=== PATIENT | male | born 1965 | race Caucasian/White ===

== ENCOUNTER 2017-04-22 15:59 | Inpatient (IN) ==
[2017-04-22] MEDS ORDERED: ASPIRIN 325 MG TABLET PO STA (16:33)
[2017-04-22] MEDS ORDERED: ASPIRIN 325 MG TABLET ONE (16:55)
[2017-04-22 17:10] LABS: Basophils % 0.5 % (0.0-0.8); Eosinophils # 0.1 10*3/uL (0.0-0.87); Eosinophils % 1.8 % (0.00-10.9); Hematocrit 41.6 VOL% (42.0-52.0); Hemoglobin 15.6 GM/DL (14.0-18.0); Immature Granulocytes % 0.4 %; Immature Granulocytes Absolute 0.03 #; Lymphocytes # 1.8 10*3/uL (1.4-4.0); Lymphocytes % 23.5 % (21.2-54.2); Mean Corpuscular HGB Conc 37.5 GM/DL (32-36); Mean Corpuscular Hemoglobin 31 PG (27-34); Mean Corpuscular Volume 82.1 FL (87-102); Mean Platelet Volume 10.2 FL (9.6-12.0); Monocytes # 0.6 10*3/uL (0.11-0.8); Neutrophils % 65.8 % (38.7-73.9); Platelet Count 211 T/CUMM (130-400); Red Blood Count 5.07 MC/CUMM (3.8-5.5); Red Cell Distribution Width 12.4 % (9.3-17.3); White Blood Count 7.6 T/CUMM (4-12)
[2017-04-22 17:27] LABS: Calcium 9.1 MG/DL (8.5-10.1); Magnesium 1.5 MG/DL (1.8-2.4); Potassium 4.1 MMOL/L (3.5-5.1)
--- NOTE | 2017-04-22 17:36 | XRay Report ---
Exam: XR chest 1V portable Indication: Midline chest pain Comparison study: None Findings: The heart, mediastinum, and bony structures are within normal limits. There is no focal consolidation, pneumothorax or pleural effusion identified. Impression: No acute cardiopulmonary process. PROCEDURE INTERPRETED AT [facility] DEPARTMENT OF RADIOLOGY Final Report Signed by: Arsenio Sanders
[2017-04-22] MEDS ORDERED: GLUCAGON 1 MG VIAL IM PRN (17:47)
[2017-04-22] MEDS ORDERED: ONDANSETRON 4 MG/2 ML VIAL IV PRN (17:47)
[2017-04-22] MEDS ORDERED: DEXTROSE 50% 25 GM/50 ML SYRINGE IV PRN (17:47)
[2017-04-22] MEDS ORDERED: MAGNESIUM SULF RIDER 4 GM in PREMIX 1 EACH IV PRN (17:47)
[2017-04-22] MEDS ORDERED: ENOXAPARIN 100 MG/ML SYRINGE SUBCUT STA (17:53)
--- NOTE | 2017-04-22 17:53 | Emergency Department Note ---
IEliazar Brooke, am scribing for, and in the presence of, Tk Chandra MD 16:34. IPrateek Kevin Lee, MD, personally performed the services described in this documentation, ascribed by Shobha Perea in my presence, and it is both accurate and complete [id number] . Arrival - Arrival Chief Complaint: Chest Pain Stated Complaint: chest pains ED Nursing Triage Note: states pain in chest felt like a mule kicking him in the chest onset thursday s/o eating a large meal and thursday after eating. pain goes into upper stomach and pt still has gall bladder. Mode of Arrival: Ambulatory Limitations: No Limitations Source: Patient, RN Notes Reviewed Time Seen by Provider: 04/22/17 16:26 - History of Present Illness HPI Narrative: Patient is a 51 year old male who presents to the ED with c/o chest pain that started on Thursday after eating a "large" meal. Patient states "I heard a doctor say that a heart attacks feels like a mule kicking you in the chest." He states that is what his pain feels like. He says the pain is brought on when he exerts himself. He says he has not been able to work because of the pain. He says he has been having a lot of GI problems, for the past year, and has had some epigastric pain with the chest pain. He denies having any diaphoresis. Patient says Dr. Lindsey "wants me to get checked out." Patient has no medical problems. No FHx of early heart disease. Patient does not smoke. Onset (ago): day(s) (5) Allergies/Adverse Reactions: Allergies Allergy/AdvReac Type Severity Reaction Status Date / Time No Known Allergies Allergy Unverified 04/22/17 16:05 Review of System - Review of System 12 point system: reviewed and no additional remarkable complaints except as stated - Review of System Constitutional: Absent: diaphoresis, fever Respiratory: Absent: respiratory distress Cardiovascular: Present: chest pain Gastrointestinal: Present: abdominal pain (epigastric) Skin: Absent: rash Medical,Surgical,& Family Hx - Social History Smoking Status: Never smoker Frequency of Alcohol Use: Rarely Type of Drug Use: None Exam Vital Signs: Vital Signs Temperature 97.7 F 04/22/17 16:24 Pulse Rate 80 04/22/17 16:25 Respiratory Rate 19 04/22/17 16:25 Blood Pressure 142/89 04/22/17 16:25 O2 Sat by Pulse Oximetry 96 04/22/17 16:39 - General General appearance: alert, in no apparent distress - Head Head exam: Present: atraumatic, normocephalic - Eye Eye exam: Present: normal appearance, PERRL, EOMI - ENT ENT exam: Present: normal exam - Neck Neck exam: Present: normal inspection - Chest Chest inspection: Present: normal inspection, symmetric chest wall rise - Respiratory Respiratory exam: Present: normal lung sounds bilaterally - Cardiovascular Cardiovascular exam: Present: regular rate, normal rhythm, normal heart sounds - Abdominal Exam Abdominal exam: Present: soft, normal bowel sounds. Absent: distention, tenderness - Extremities Exam Extremities exam: Present: normal inspection - Back Exam Back exam: Present: normal inspection - Neurological Exam Neurological exam: Present: alert, oriented X3 - Psychiatric Psychiatric exam: Present: normal affect, normal mood - Skin Skin exam: Present: warm, dry, intact, normal color Course Course Narrative: will admit for probable cath in am Results - Labs CBC & BMP: 04/22/17 16:55 04/22/17 16:55 Lab Results: I have reviewed the patients labs Labs: Laboratory Tests 04/22/17 16:55 WBC 7.6 RBC 5.07 Hgb 15.6 Hct 41.6 L MCV 82.1 L MCH 31 MCHC 37.5 H RDW 12.4 Plt Count 211 MPV 10.2 Neut % (Auto) 65.8 Lymph % (Auto) 23.5 [place] % (Auto) 8.0 Eos % (Auto) 1.8 Baso % (Auto) 0.5 Neut # (Auto) 5.0 Lymph # (Auto) 1.8 [place] # (Auto) 0.6 Eos # (Auto) 0.1 Baso # (Auto) 0.0 Immature Gran % 0.4 Nucleated RBC % 0.0 Immature Gran # 0.03 Nucleated RBCs # 0.00 Immature Plt Fraction 0.0 Laboratory Tests 04/22/17 04/22/17 16:55 16:55 Sodium 136 Potassium 4.1 Chloride 100 Carbon Dioxide 26 Anion Gap 14.1 BUN 17 Creatinine 0.70 GFR Calculation 142 BUN/Creatinine Ratio 24.00 H Glucose 227 H Calculated Osmolality 280.0 Calcium 9.1 Magnesium 1.5 L Troponin I 0.154 H - Diagnostic Findings Procedure: Chest x-ray: report reviewed by me (Normal chest x-ray.) Disposition Clinical Impression: Chest pain, NSTEMI (non-ST elevated myocardial infarction) Case discussed with: patient Disposition: Still a Patient Condition: Guarded
[2017-04-22] MEDS ORDERED: ENOXAPARIN 100 MG/ML SYRINGE SUBCUT ONE (18:09)
[2017-04-22] MEDS: ENOXAPARIN 100 MG/ML SYRINGE SUBCUT SCH (20:19)
[2017-04-22] MEDS: CARVEDILOL 3.125 MG TABLET PO SCH (22:40)
[2017-04-22] MEDS: INSULIN REGULAR 100 UNIT/ML SUBCUT SCH (22:40)
[2017-04-22] MEDS: MAGNESIUM SULF RIDER 2 GM in PREMIX 1 EACH IV PRN (23:05)
[2017-04-22] MEDS: SODIUM CHLORIDE 0.45% 1,000 ML IV SCH (23:05)
[2017-04-23] MEDS: SODIUM CHLORIDE 0.45% 1,000 ML IV SCH ×2 (02:24→10:01)
[2017-04-23] MEDS: CARVEDILOL 3.125 MG TABLET PO SCH ×2 (02:34→11:55)
--- NOTE | 2017-04-23 05:56 | EKG Report ---
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
[2017-04-23 06:19] LABS: Troponin I Only 0.115 NG/ML (0.00-0.045)
--- NOTE | 2017-04-23 07:14 | EKG Report ---
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
[2017-04-23] MEDS: INSULIN REGULAR 100 UNIT/ML SUBCUT SCH ×4 (08:19→20:47)
--- NOTE | 2017-04-23 09:15 | Cardiology History & Physical ---
Assessment and Plan - Time spent with patient Time spent with patient: Greater than 30 minutes (due to assessment, plan, and documentation) (1) Chest pain Status: Acute Assessment and plan: See plan of care listed below. Current Visit: Yes (2) Epigastric pain Status: Acute Assessment and plan: See plan of care listed below. Current Visit: Yes (3) Hypertension Status: Chronic Assessment and plan: See plan of care listed below. Current Visit: Yes (4) Diabetes mellitus Status: Chronic Assessment and plan: See plan of care listed below. Current Visit: Yes Qualifiers: Diabetes mellitus type: type 2 Diabetes mellitus complication status: with hyperglycemia Diabetes mellitus long term care phlebotomist insulin use: without group home use Qualified Code(s): E11.65 - Type 2 diabetes mellitus with hyperglycemia (5) Hyperlipidemia Status: Chronic Assessment and plan: See plan of care listed below. Current Visit: Yes Qualifiers: Hyperlipidemia type: unspecified Qualified Code(s): E78.5 - Hyperlipidemia , unspecified (6) Family history of coronary artery disease in father Status: Chronic Assessment and plan: See plan of care listed below. Current Visit: Yes (7) Petit mal epilepsy Status: Chronic Assessment and plan: See plan of care listed below. 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 Meredith PCP: Dr. Lindsey Mr. Pedersen is a 51 y/o WM who has cardiac risk factors significant for: Hypertension, diabetes, hyperlipidemia, family history of coronary artery disease, obesity. He reports his father had CABG 3 at age 67 and subsequently from an ME at age 69. He also has a history of petit mall seizures and last had a seizure about 3 weeks ago during his sleep. 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 Mr. Pedersen presented to the emergency room on 04/22/2017 with complaints of intermittent chest pain/epigastric pain ongoing for 2 weeks with a severe episode on Thursday. Mr. Pedersen reports that he has had GI problems for over a year and frequently after eating he has an epigastric/midsternal discomfort that lasts for 20-30 minutes. He says during that time he feels as though he is unable to do anything and reports when he is done eating feels like a mule has kicked him in the chest. He also notes episodes of the same discomfort when he is exerting himself. He describes this pain as a pressure and burning sensation that lasts approximately 5 minutes but improves with rest. He also reports that he has felt some left subscapular and mid back pain as well. He states that he feels this is more of a nerve pain and is worse when he is in certain positions. He reports having lost 10 pounds in the past 5 days and feels as though he can hardly eat anything. He denies any shortness of breath ( at rest or on exertion), weakness, dizziness, lightheadedness, or syncope. He has had intermittent nausea which is not necessarily been associated with his chest pain. 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 He states he has now been unable to work since Thursday. He was recently seen by his PCP and urged to seek further evaluation to rule out cardiac etiology before pursuing GI evaluation. Upon arrival in our emergency room, he was noted to have a troponin of 0.106. He has subsequently had a slight downward trend of his troponin levels with normal CPK and CK-MB. His EKG is normal. His potassium is 4.1, magnesium 1.5 (this is being replaced) , creatinine 0.7, BNP 11. H&H is stable at 15.6 and 41.6. ASSESSMENT/PLAN: 1. CHEST PAIN: Mr. Pedersen describes symptoms of exertional angina. Certainly, it 's possible he had a mild ME sometime in the past couple of weeks and had a late presentation to the ED. His EKGs have been unremarkable but he has had some trivial troponin elevation. Will keep Mr. Pedersen NPO and further discuss with Dr. Meredith the benefits of further cardiac evaluation with left heart catheterization or stress testing. 2. EPIGASTRIC PAIN: It sounds as though Mr. Pedersen may have two separate issues going on, cardiac and GI. Once we have completed a cardiac evaluation, he will need to be referred to a policy officer to further evaluate his postpranidal epigastric pain, nausea, and weight loss. 3. HYPERTENSION: Currently well controlled. We have continued his home medications. Will continue to monitor and adjust accordingly. 4. DIABETES: Suspect this is poorly controlled. We will hold his metformin in case he requires catheterization with IVP dye. He has been started on accuchecks with sliding scale insulin. 5. HYPERLIPIDEMIA: Currently taking Fish Oil supplement. Will recheck lipid panel in AM. 6. FAMILY HISTORY OF CAD: He reports his father had CABG 3 at age 67 and subsequently from an ME at age 69. 7. SEIZURE DISORDER: If we pursue stress testing, would need to avoid the use of Lexiscan as it can potentially lower the threshold for seizure activity. Will continue seizure medication. Patient reports he has had epilepsy since age 22. Home Medications Medication Instructions Recorded Confirmed Type Aspirin EC Tab 81 mg PO QAM 04/22/17 04/23/17 History Losartan Potassium 50 mg PO QAM 04/22/17 04/23/17 History Metformin HCl [Metformin HCl ER] 2,000 mg PO BEDTIME 04/22/17 04/23/17 History Multivit-Mins/Iron/Folic/Lycop 1 each PO QAM 04/22/17 04/23/17 History [Centrum Men's Tablet] OXcarbazepine [Oxcarbazepine] 1,200 mg PO BID 04/22/17 04/23/17 History [place]-3S/Dha/Epa/Fish Oil [Fish 1 each PO QAM 04/22/17 04/23/17 History Oil 1,200 mg Softgel] Ubidecarenone [Co Q-10] 200 mg PO QAM 04/22/17 04/23/17 History clonazePAM TAB [KlonoPIN] 0.5 mg PO BEDTIME 04/22/17 04/23/17 History Allergies Allergy/AdvReac Type Severity Reaction Status Date / Time No Known Allergies Allergy Unverified 04/22/17 16:05 Review of systems: - Constitutional: Present: fatigue, weight loss, As per HPI. Absent: anorexia , chills, daytime sleepiness, excessive sweating, fever(s), frequent falls, headache(s), increased appetite, lethargy, malaise, night sweats, stops breathing during sleep, weakness, weight gain. - EENT Eyes: Present: As per HPI. Absent: blurry vision, diplopia, loss of vision Ears: Present: As per HPI. Absent: decreased hearing, ear discharge, ear pain Nose, mouth and throat: Present: As per HPI. Absent: dysphagia, epistaxis, headache(s), hoarseness, lip swelling, nasal congestion, neck mass, neck pain, sinus pressure, sore throat, throat swelling, tongue swelling, vertigo - Cardiovascular: Present: chest pain at rest, chest pain with activity, palpitations, as per HPI. Absent: dyspnea, dyspnea on exertion, edema, claudication, diaphoresis, radiating jaw, neck or arm pain, lightheadedness, orthopnea, PND - Respiratory: Present: as per HPI. Absent: dyspnea, dyspnea on exertion, cough , hemoptysis, wheezing, snoring, pain on inspiration - Gastrointestinal: Present: abdominal pain, nausea, As per HPI. Absent: bloating, change in bowel habits, constipation, diarrhea, heartburn, hematemesis , hematochezia, loose stools, melena, vomiting - Genitourinary: Present: As per HPI. Absent: difficulty urinating, dysuria, flank pain, hematuria, nocturia, urinary frequency, urinary incontinence - Musculoskeletal: Present: s per HPI. Absent: arthralgias, joint swelling, limited range of motion, muscle cramps, muscle weakness, myalgias - Neurological: Present: As per HPI. Absent: abnormal gait, abnormal speech, behavioral changes, confusion, convulsions, disequilibrium, dizziness, focal weakness, frequent falls, headache(s), memory loss, numbness, paresthesias, radicular pain, syncope, tremor(s) - Psychiatric: Present: As per HPI. Absent: anxiety, confusion, depression, panic attacks - Endocrine: Present: fatigue, As per HPI. Absent: cold intolerance, heat intolerance, polydipsia, polyphagia - Hematologic/Lymphatic: Present: As per HPI. Absent: easy bleeding, easy bruising, lymphadenopathy Medical,Surgical,& Family Hx - Medical History Cardio: History of: Hypertension No history of: CAD, ME Neurology: History of: Seizures Endocrine: History of: Diabetes Mellitus (NIDDM), Dyslipidemia Respiratory: History of: Obstructive Sleep Apnea (does not use CPAP at home) Gastrointestinal: History of: GERD - Family History Family History: Reports;: Family Heart Disease - Social History Smoking Status: Never smoker Frequency of Alcohol Use: Rarely Type of Drug Use: None Marital Status: Lives With:: Spouse Functional capacity: independent ambulation Cardiology Physical Exam - Constitutional Vitals: Vital Signs Temp Pulse Resp BP Pulse Ox 96.6 F L 64 20 133/86 96 04/23/17 07:59 04/23/17 07:59 04/23/17 07:59 04/23/17 07:59 04/23/17 07:59 Intake and Output 04/22/17 04/23/17 04/23/17 22:59 06:59 14:59 Intake Total 200 / 200 240 / 240 Output Total 300 / 300 Balance 200 / 200 -60 / -60 Intake: Oral 200 / 200 240 / 240 Output: Urine 300 / 300 Other: Voiding Method Toilet # Voids 2 Weight 236 lb 9 oz 236 lb 9 oz Exam: General appearance: Appears well. Pleasant and cooperative. Overweight, no acute distress. Head exam: Present: normal inspection, normocephalic, atraumatic. Absent: hematoma, laceration Eye exam: Present: EOMI. Absent: conjunctival injection, nystagmus, periorbital swelling, scleral icterus, laceration to eyelids, jaundice Pupils: Present: PERRL. Absent: constricted, dilated, fixed, irregular, unequal ENT exam: Present: normal exam, normal external ear exam, mucous membranes moist. Neck exam: Present: normal inspection, midline trachea. Absent: masses, lymphadenopathy, tenderness, thyromegaly, carotid bruit Respiratory exam: Present: clear to auscultation bilaterally. Absent: accessory muscle use, chest wall tenderness, rales, rhonchi, wheezing. Cardiovascular exam: Present: regular rate and rhythm. Absent: gallop, JVD, rubs, murmur GI/Abdominal exam: Present: normal bowel sounds, soft. Absent: distended, firm , hernia, mass, tenderness. Extremities exam: Present: Normal Gait, No Clubbing, No Cyanosis, Upper Extr. Pulses 2+, Lower Extr. Pulses 2+, No edema. Capillary refill less than 3 seconds. Musculoskeletal: Present: No Fluid Collection, No Pain, Normal Range of Motion Back exam: Present: normal inspection. Absent: muscle spasm, vertebral tenderness Neurological exam: Present: awake, alert, oriented X3, Moves all extremities well without hemiparesis or paralysis. Grossly intact without resting or essential tremor Psychiatric exam: Present: normal affect, normal mood Skin exam: Present: normal color, warm, dry, intact. Absent: cyanosis, diaphoretic, rash, urticaria Result/EKG - Labs CBC & BMP: 04/22/17 16:55 04/22/17 16:55 Lab Results: I have reviewed the past 24 hour labs Labs: Laboratory Results - last 24 hr 04/22/17 04/22/17 04/22/17 16:55 16:55 16:55 WBC 7.6 RBC 5.07 Hgb 15.6 Hct 41.6 L MCV 82.1 L MCH 31 MCHC 37.5 H RDW 12.4 Plt Count 211 MPV 10.2 Neut % (Auto) 65.8 Lymph % (Auto) 23.5 [place] % (Auto) 8.0 Eos % (Auto) 1.8 Baso % (Auto) 0.5 Neut # (Auto) 5.0 Lymph # (Auto) 1.8 [place] # (Auto) 0.6 Eos # (Auto) 0.1 Baso # (Auto) 0.0 Immature Gran % 0.4 Nucleated RBC % 0.0 Immature Gran # 0.03 Nucleated RBCs # 0.00 Immature Plt Fraction 0.0 Sodium 136 Potassium 4.1 Chloride 100 Carbon Dioxide 26 Anion Gap 14.1 BUN 17 Creatinine 0.70 GFR Calculation 142 BUN/Creatinine Ratio 24.00 H Glucose 227 H POC Glucose Calculated Osmolality 280.0 Calcium 9.1 Magnesium 1.5 L Total Creatine Kinase CK-MB (CK-2) Troponin I B-Natriuretic Peptide 04/22/17 04/22/17 04/22/17 16:55 19:55 21:00 WBC RBC Hgb Hct MCV MCH MCHC RDW Plt Count MPV Neut % (Auto) Lymph % (Auto) [place] % (Auto) Eos % (Auto) Baso % (Auto) Neut # (Auto) Lymph # (Auto) [place] # (Auto) Eos # (Auto) Baso # (Auto) Immature Gran % Nucleated RBC % Immature Gran # Nucleated RBCs # Immature Plt Fraction Sodium Potassium Chloride Carbon Dioxide Anion Gap BUN Creatinine GFR Calculation BUN/Creatinine Ratio Glucose POC Glucose 218 H Calculated Osmolality Calcium Magnesium Total Creatine Kinase CK-MB (CK-2) Troponin I 0.154 H 0.125 H B-Natriuretic Peptide 04/22/17 04/23/17 04/23/17 23:28 05:18 07:24 WBC RBC Hgb Hct MCV MCH MCHC RDW Plt Count MPV Neut % (Auto) Lymph % (Auto) [place] % (Auto) Eos % (Auto) Baso % (Auto) Neut # (Auto) Lymph # (Auto) [place] # (Auto) Eos # (Auto) Baso # (Auto) Immature Gran % Nucleated RBC % Immature Gran # Nucleated RBCs # Immature Plt Fraction Sodium Potassium Chloride Carbon Dioxide Anion Gap BUN Creatinine GFR Calculation BUN/Creatinine Ratio Glucose POC Glucose 171 H Calculated Osmolality Calcium Magnesium Total Creatine Kinase 40 CK-MB (CK-2) < 1.0 Troponin I 0.106 H 0.115 H B-Natriuretic Peptide - EKG EKG results: interpreted by me, sinus rhythm
[2017-04-23] MEDS: MULTIVITAMIN (CENTRUM) TABLET PO SCH (10:02)
[2017-04-23] MEDS: COENZYME Q10 100 MG CAPSULE PO SCH (10:02)
[2017-04-23] MEDS: OMEGA 3 ACID ETHYL ESTERS 1 GM CAPSULE PO SCH (10:02)
[2017-04-23 10:29] LABS: Troponin I Only 0.105 NG/ML (0.00-0.045)
[2017-04-23] MEDS: ENOXAPARIN 100 MG/ML SYRINGE SUBCUT SCH ×2 (14:28→20:48)
[2017-04-23] MEDS: LOSARTAN 50 MG TABLET PO SCH (14:29)
[2017-04-23] MEDS: ASPIRIN CHEW 81 MG TABLET PO SCH (14:29)
[2017-04-23] MEDS: PANTOPRAZOLE 40 MG TABLET PO SCH (14:29)
[2017-04-23] MEDS: OXcarbazepine 300 MG TABLET PO SCH ×3 (14:30→20:49)
[2017-04-23 18:11] LABS: Troponin I Only 0.081 NG/ML (0.00-0.045)
[2017-04-24 06:09] LABS: Basophils % 0.7 % (0.0-0.8); Eosinophils # 0.2 10*3/uL (0.0-0.87); Eosinophils % 3.8 % (0.00-10.9); Hematocrit 41.3 VOL% (42.0-52.0); Immature Granulocytes % 0.5 %; Immature Granulocytes Absolute 0.03 #; Lymphocytes # 2.1 10*3/uL (1.4-4.0); Lymphocytes % 33.6 % (21.2-54.2); Mean Corpuscular HGB Conc 38.7 GM/DL (32-36); Mean Corpuscular Hemoglobin 33 PG (27-34); Mean Corpuscular Volume 83.8 FL (87-102); Mean Platelet Volume 11.7 FL (9.6-12.0); Monocytes # 0.7 10*3/uL (0.11-0.8); Monocytes % 10.7 % (1.7-12.7); Neutrophils # 3.1 10*3/uL (1.4-7.4); Neutrophils % 50.7 % (38.7-73.9); Platelet Count 192 T/CUMM (130-400); Red Blood Count 4.93 MC/CUMM (3.8-5.5); Red Cell Distribution Width 12.6 % (9.3-17.3); White Blood Count 6.1 T/CUMM (4-12)
[2017-04-24 06:22] LABS: Calcium 7.4 MG/DL (8.5-10.1); Magnesium 1.6 MG/DL (1.8-2.4); Osmolality,Calculated 281.1 MOS/KG (273-304); Potassium 4.3 MMOL/L (3.5-5.1)
[2017-04-24 06:31] LABS: Band Neutrophils 1 % (0-10); Eosinophils 2 % (0-10); Lymphocytes 26 % (20-55); Segmented Neutrophils 65 % (50-85); Total Cells Counted 100
[2017-04-24 06:32] LABS: Hypochromasia Slight; Platelet Estimate Adequate
[2017-04-24 06:34] LABS: Risk Ratio 10.28
[2017-04-24] MEDS: MAGNESIUM SULF RIDER 2 GM in PREMIX 1 EACH IV PRN (06:45)
--- NOTE | 2017-04-24 10:59 | Cardiology Progress Note ---
Assessment and Plan - Time spent with patient Time spent with patient: Less than 30 minutes (1) Chest pain Status: Acute Assessment and plan: See plan of care listed below. Current Visit: Yes (2) Epigastric pain Status: Acute Assessment and plan: See plan of care listed below. Current Visit: Yes (3) Hypertension Status: Chronic Assessment and plan: See plan of care listed below. Current Visit: Yes (4) Diabetes mellitus Status: Chronic Assessment and plan: See plan of care listed below. 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 Current Visit: Yes Qualifiers: Hyperlipidemia type: unspecified Qualified Code(s): E78.5 - Hyperlipidemia , unspecified (6) Family history of coronary artery disease in father Status: Chronic Assessment and plan: See plan of care listed below. Current Visit: Yes (7) Petit mal epilepsy Status: Chronic Assessment and plan: See plan of care listed below. Current Visit: Yes Cardiology - PN: Subj Interval history: Aircraft Engine Specialist: Dr. Meredith PCP: Dr. Lindsey SUMMARY: Mr. Pedersen is a 51 y/o WM who presented to the emergency room on 2016 with complaints of intermittent chest pain/epigastric pain ongoing for 2 weeks with a severe episode on Thursday. Mr. Pedersen reports that he has had GI problems for over a year and frequently after eating he has an epigastric/ midsternal discomfort that lasts for 20-30 minutes. He also notes episodes of the same discomfort when he is exerting himself. He describes this pain as a pressure and burning sensation that lasts approximately 5 minutes but improves with rest. 2016: Mr. Pedersen reports he had an uneventful night. He is seen in cardiopulmonary prior to stress testing this morning. He reports he has had some mild nausea and epigastric discomfort through the night. Lipid panel this morning revealed triglycerides 2250, cholesterol 298, LDL 93, HDL 29. Will repeat lipid panel to ensure accurate results. The patient tells me that he has tried to take cholesterol medications in the past but had side effects with them. He cannot remember which medication he was on or exactly what type of side effects he had. We will start him on low dose atorvastatin to see if he can tolerate. He reports his triglycerides have run in the [id number] range in the past. Ideally, we would like to start him on something such as crestor which may not cause him as many side effects; however, he has no medical insurance so we will try atorvastatin. He will also continue Lovaza. As Mr. Pedersen had a clinically positive stress test, I have discussed this with Dr. Meredith in detail who will review his nuclear results. Dr. Meredith has discussed proceeding with a heart catheterization today due to exertional angina and Mr. Pedersen is agreeable to proceeding. He will be scheduled for 1300. I have tried to reach his but she is not in the patient's room and I am unable to reach anyone at the contact numbers provided in the chart. ASSESSMENT/PLAN: 1. CHEST PAIN: Mr. Pedersen describes symptoms of exertional angina. Certainly, it 's possible he had a mild MN sometime in the past couple of weeks and had a late presentation to the ED. His EKGs have been unremarkable but he has had some trivial troponin elevation. He underwent nuclear stress testing this morning and test was stopped before completion due to worsening chest discomfort with exertion. 2. EPIGASTRIC PAIN: It sounds as though Mr. Pedersen may have two separate issues going on, cardiac and GI. Once we have completed a cardiac evaluation, he will need to be referred to a foundation relations manager to further evaluate his postprandial epigastric pain, nausea, and weight loss. 3. HYPERTENSION: Currently well controlled. We have continued his home medications. Will continue to monitor and adjust accordingly. 4. DIABETES: Suspect this is poorly controlled. We will hold his metformin in case he requires catheterization with IVP dye. He has been started on accuchecks with sliding scale insulin. 5. HYPERLIPIDEMIA: Has been taking Fish Oil supplement at home. Lipid panel revealed triglycerides 2250, cholesterol 298, LDL 93, HDL 29. Will repeat lipid panel to ensure accurate results. Continue Lovaza. Start Atorvastatin 10mg PO QHS. Continue Co Q-10. 6. FAMILY HISTORY OF CAD: He reports his father had CABG 3 at age 67 and subsequently from an MN at age 69. 7. SEIZURE DISORDER: Will continue seizure medication. Patient reports he has had epilepsy since age 22. Exam (Progress Note) - Constitutional Vitals: Period Temp Pulse Resp BP Sys/More[place] Pulse Ox Last 24 Hr 96.2 F-98.1 F 61-75 18-20 116-145/72-92 96-98 Exam: General appearance: Appears well. Pleasant and cooperative. Overweight, no acute distress. Head exam: Present: normal inspection, normocephalic, atraumatic. Absent: hematoma, laceration Eye exam: Present: EOMI. Absent: conjunctival injection, nystagmus, periorbital swelling, scleral icterus, laceration to eyelids, jaundice Pupils: Present: PERRL. Absent: constricted, dilated, fixed, irregular, unequal ENT exam: Present: normal exam, normal external ear exam, mucous membranes moist. Neck exam: Present: normal inspection, midline trachea. Absent: masses, lymphadenopathy, tenderness, thyromegaly, carotid bruit Respiratory exam: Present: clear to auscultation bilaterally. Absent: accessory muscle use, chest wall tenderness, rales, rhonchi, wheezing. Cardiovascular exam: Present: regular rate and rhythm. Absent: gallop, JVD, rubs, murmur GI/Abdominal exam: Present: normal bowel sounds, soft. Absent: distended, firm , hernia, mass, tenderness. Extremities exam: Present: Normal Gait, No Clubbing, No Cyanosis, Upper Extr. Pulses 2+, Lower Extr. Pulses 2+, No edema. Capillary refill less than 3 seconds. Musculoskeletal: Present: No Fluid Collection, No Pain, Normal Range of Motion Back exam: Present: normal inspection. Absent: muscle spasm, vertebral tenderness Neurological exam: Present: awake, alert, oriented X3, Moves all extremities well without hemiparesis or paralysis. Grossly intact without resting or essential tremor Psychiatric exam: Present: normal affect, normal mood Skin exam: Present: normal color, warm, dry, intact. Absent: cyanosis, diaphoretic, rash, urticaria Result/EKG - Labs CBC & BMP: 04/24/17 04:42 04/24/17 04:41 Lab Results: I have reviewed the past 24 hour labs Labs: Laboratory Results - last 24 hr 04/23/17 04/23/17 04/23/17 11:19 15:08 16:18 WBC RBC Hgb Hct MCV MCH MCHC RDW Plt Count MPV Neut % (Auto) Lymph % (Auto) [place] % (Auto) Eos % (Auto) Baso % (Auto) Neut # (Auto) Lymph # (Auto) [place] # (Auto) Eos # (Auto) Baso # (Auto) Total Counted Immature Gran % Nucleated RBC % Immature Gran # Segmented Neutrophils Band Neutrophils Lymphocytes Monocytes Eosinophils Nucleated RBCs # Platelet Estimate Immature Plt Fraction Hypochromasia Sodium Potassium Chloride Carbon Dioxide Anion Gap BUN Creatinine GFR Calculation BUN/Creatinine Ratio Glucose POC Glucose 198 H 165 H Calculated Osmolality Calcium Magnesium Total Creatine Kinase 42 CK-MB (CK-2) < 1.0 Troponin I 0.081 H D Triglycerides Cholesterol LDL Cholesterol VLDL Cholesterol HDL Cholesterol Heart Disease Risk Ratio 04/23/17 04/24/17 04/24/17 19:02 04:41 04:41 WBC RBC Hgb Hct MCV MCH MCHC RDW Plt Count MPV Neut % (Auto) Lymph % (Auto) [place] % (Auto) Eos % (Auto) Baso % (Auto) Neut # (Auto) Lymph # (Auto) [place] # (Auto) Eos # (Auto) Baso # (Auto) Total Counted Immature Gran % Nucleated RBC % Immature Gran # Segmented Neutrophils Band Neutrophils Lymphocytes Monocytes Eosinophils Nucleated RBCs # Platelet Estimate Immature Plt Fraction Hypochromasia Sodium 135 L Potassium 4.3 Chloride 100 Carbon Dioxide 28 Anion Gap 11.3 BUN 13 Creatinine 0.90 GFR Calculation 129 BUN/Creatinine Ratio 14.00 Glucose 323 H POC Glucose 285 H Calculated Osmolality 281.1 Calcium 7.4 L Magnesium 1.6 L Total Creatine Kinase CK-MB (CK-2) Troponin I Triglycerides 2250 H Cholesterol 298 H LDL Cholesterol 93.0 VLDL Cholesterol 450.0 HDL Cholesterol 29 L Heart Disease Risk Ratio 10.28 04/24/17 04/24/17 04:42 07:27 WBC 6.1 RBC 4.93 Hgb 16.0 Hct 41.3 L MCV 83.8 L MCH 33 MCHC 38.7 H RDW 12.6 Plt Count 192 MPV 11.7 Neut % (Auto) 50.7 Lymph % (Auto) 33.6 [place] % (Auto) 10.7 Eos % (Auto) 3.8 Baso % (Auto) 0.7 Neut # (Auto) 3.1 Lymph # (Auto) 2.1 [place] # (Auto) 0.7 Eos # (Auto) 0.2 Baso # (Auto) 0.0 Total Counted 100 Immature Gran % 0.5 Nucleated RBC % 0.0 Immature Gran # 0.03 Segmented Neutrophils 65 Band Neutrophils 1 Lymphocytes 26 Monocytes 6 Eosinophils 2 Nucleated RBCs # 0.00 Platelet Estimate Adequate Immature Plt Fraction 0.0 Hypochromasia Slight Sodium Potassium Chloride Carbon Dioxide Anion Gap BUN Creatinine GFR Calculation BUN/Creatinine Ratio Glucose POC Glucose 217 H Calculated Osmolality Calcium Magnesium Total Creatine Kinase CK-MB (CK-2) Troponin I Triglycerides Cholesterol LDL Cholesterol VLDL Cholesterol HDL Cholesterol Heart Disease Risk Ratio - EKG EKG results: interpreted by me, sinus rhythm Specialty Discharge - Follow Up or Referrals
--- NOTE | 2017-04-24 11:51 | Event Note ---
Patient for nuclear stress testing this morning. Resting EKG showed normal sinus rhythm. Patient began developing mid and substernal chest discomfort in the beginning of stage II of [place] protocol. Unable to achieve target heart rate due to worsening chest discomfort with burning/pressure. Maximum heart rate achieved 125 with target of 143. Patient transitioned to manual mode and radioactive tracer given after 6 minutes 39 seconds of exercise. Patient was noted to have upsloping ST depression in leads II, 3, V5, V6 which improved with rest. Test was stopped and chest discomfort improved with rest. Blood pressure responded appropriately. Patient now to nuclear medicine for final scan. Dr. Meredith to read, interpret, advise.
--- NOTE | 2017-04-24 12:15 | History and Physical Update ---
Sedation H&P Update - History and Physical H&P was reviewed, the patient examined and there: are no changes in the patients condition since last H&P was completed. (Patient failed his treadmill. He had chest pain with minimal exertion and upsloping ST depression. Even if the Cardiolite scan/exam is normal, he needs a cath. Risk and benefits were discussed with him. He agrees. Will be done today at 1 PM.) - Dictation Physical: refer to H&P completed by admitting physician - Physical Exam Mental Status: alert and oriented Heart: regular rate and rhythm Lung: clear to auscultation Abdomen: within normal limits Vitals: within normal limits (Femoral pulses are 4+. Foot pulses are 3+.) - Sedation Plan for Sedation: minimal Patient Consent: Procedure disscussed with patient and patinet has consented., Risks and benefits were discussed with patient,including infection,, bleeding, injury to surrounding structures, seizure, temporary nerve, Patient understands and accepts potential risks/benefits and agrees to, proceed. (Left heart cath and possible PTCA or stent were discussed with the patient. The risk of the procedure include but are not limited to a small risk of injury to the vessel, abnormal heart rhythm, stroke, heart attack, need for emergent surgery, contrast reaction, restenosis, infection, or . The patient voices understanding, agrees with the plan, and desires to proceed with the heart catheterization.) ASA Class: II Airway Assessment: Class II: Soft palate, uvula, fauces visible
[2017-04-24] MEDS ORDERED: REGADENOSON 0.4 MG/5 ML SYRINGE IV ONE (12:30)
[2017-04-24] MEDS ORDERED: diphenhydrAMINE CAP 50 MG CAPSULE ONE (12:38)
[2017-04-24] MEDS ORDERED: POTASSIUM CHLORIDE RIDER 10 MEQ in PREMIX 1 EACH IV PRN (12:39)
[2017-04-24] MEDS ORDERED: DIAZEPAM 5 MG TABLET PO ONE (12:39)
[2017-04-24] MEDS ORDERED: DIAZEPAM 5 MG TABLET ONE (12:39)
[2017-04-24] MEDS ORDERED: MAGNESIUM SULF RIDER 2 GM in PREMIX 1 EACH IV PRN (12:39)
[2017-04-24] MEDS ORDERED: diphenhydrAMINE CAP 25 MG CAPSULE PO ONE (12:39)
[2017-04-24] MEDS: LOSARTAN 50 MG TABLET PO SCH (12:44)
[2017-04-24] MEDS: ASPIRIN CHEW 81 MG TABLET PO SCH ×2 (12:44→16:01)
[2017-04-24] MEDS: ENOXAPARIN 100 MG/ML SYRINGE SUBCUT SCH (12:45)
[2017-04-24] MEDS: PANTOPRAZOLE 40 MG TABLET PO SCH (12:45)
[2017-04-24] MEDS ORDERED: diphenhydrAMINE CAP 25 MG CAPSULE ONE (12:52)
[2017-04-24] MEDS: SODIUM CHLORIDE 0.9% 1,000 ML IV SCH ×3 (12:54→23:30)
[2017-04-24] MEDS ORDERED: LIDOCAINE 1% 20 ML VIAL ONE (13:02)
[2017-04-24] MEDS ORDERED: MIDAZOLAM 2 MG/2 ML VIAL ONE (13:03)
[2017-04-24] MEDS ORDERED: MEPERIDINE 25 MG/1 ML VIAL ONE (13:03)
[2017-04-24] MEDS ORDERED: METOPROLOL TARTRATE 5 MG/5 ML VIAL IV ONE (13:31)
[2017-04-24] MEDS: INSULIN REGULAR 100 UNIT/ML SUBCUT SCH ×4 (13:56→21:30)
--- NOTE | 2017-04-24 14:10 | Cardiology Operative Report ---
Date of Procedure:: 04/24/17 Post-op diagnosis: same (Progressive chest pain with activity, ford zone troponin, the patient had preference for starting with a treadmill, treadmill was positive, patient was referred for diagnostic catheterization and possible intervention) Procedure: Date of procedure: 04/24/17 Procedure Preformed: Left heart cath Coronary angiography Left ventriculography Angiogram of the right femoral artery Angio-Seal of the right femoral artery-successful Surgeon / Physician: Ronnie Meredith Therapeutic Recreation Assistant: Yair Lucero Post-op diagnosis: same (Progressive chest pain with activity, ford zone troponin, the patient had preference for starting with a treadmill, treadmill was positive, patient was referred for diagnostic catheterization and possible intervention) procedure: The patient was prepped and draped in usual manner. Entered the right femoral artery via the Seldinger technique. I used a sheath and then used a JL4 and engaged left coronary. Multiple views were taken. I then exchanged for a JR4. Multiple views of the right coronary were taken. I then exchanged for an angled pigtail. I crossed the valve. Left ventricular end-diastolic pressures measured. Left ventriculography was done. Left ventricle pullback was done. The catheters were then removed from the patient. Angiogram of the right femoral artery was done either from the follow-through from the LV gram or a separate injection in the right femoral artery. Angio-Seal was done and it was successful. Please see the cath data sheets for the details of catheters used. Complications: None Hemodynamic data: LVEDP was 20 mmHg. Angiographic data: The left main coronary was large and had minimal luminal irregularities. The left anterior descending artery was large and there was one major diagonal which came off of it. After the major diagonal, the LAD had a total occlusion. It appeared to be a flush total occlusion, there was no "beak" at the point it was occluded. The origin of the diagonal had a 90% proximal/ostial narrowing. The left circumflex system was moderate to large size. There is an obtuse marginal, post lateral, and possibly a dual PDA. The obtuse marginal had a long 99% narrowing. The right coronary artery was moderate in size, dominant vessel with the PDA. The midportion of this vessel had a 90% narrowing. There was some disease distally. Mild reduction in STEWART left ventriculography revealed mild reduction in global/regional left ventricular systolic function. Overall ejection fraction was at least 45-50 %. There is no significant mitral regurgitation. Angiogram of the right femoral artery revealed the puncture site to be in a large vessel, above the bifurcation. It was suitable for Angio-Seal. Impression: Significant three-vessel coronary disease---occluded proximal LAD with collaterals from the right coronary, critical stenosis of the ostium of a diagonal, critical stenosis of a obtuse marginal, and the mid right coronary artery Mild global left systolic dysfunction, LVEF is 45-50%. Anterolateral hypokinesis Moderate elevation of LVEDP, 20 mmHg Angiogram of the right femoral artery Angio-Seal right femoral artery-successful Plan/recommendations: Based on this angiogram, the patient has significant three -vessel coronary disease. Given he is a diabetic and mild LV dysfunction, I would favor him undergoing coronary bypass grafting as being best revascularization option in the long-term. I will consult cardiovascular surgery and get their opinion. The patient will have risk factors optimized. The patient will be on antiplatelet medications to include aspirin indefinitely. Follow-up will be scheduled. Addenda: I saw the patient post-cath. the groin puncture site and distal pulse are stable. vital signs are stable and the patient will be observed closely overnight. Specimens: none sent Estimated blood loss: minimal Condition: stable Anesthesia: local, conscious sedation Disposition: floor Additional CC's: Jeannine Lindsey Anesthesia: local, minimal conscious sedation Surgeon / Physician: Ronnie Meredith Therapeutic Recreation Assistant: other Estimated blood loss: minimal Specimens: none sent Condition: stable Disposition: floor
[2017-04-24] MEDS ORDERED: DEXTROSE 50% 25 GM/50 ML SYRINGE IV PRN (15:44)
[2017-04-24] MEDS ORDERED: GLUCAGON 1 MG VIAL IM PRN (15:44)
[2017-04-24] MEDS: MULTIVITAMIN (CENTRUM) TABLET PO SCH (15:59)
[2017-04-24] MEDS: COENZYME Q10 100 MG CAPSULE PO SCH (15:59)
[2017-04-24] MEDS: OXcarbazepine 300 MG TABLET PO SCH ×2 (16:00→21:30)
[2017-04-24] MEDS: OMEGA 3 ACID ETHYL ESTERS 1 GM CAPSULE PO SCH (16:00)
[2017-04-24] MEDS: FENOFIBRATE 145 MG TABLET PO SCH (16:01)
[2017-04-24] MEDS: NITROGLYCERIN 2% OINT 1 INCH/GM PACK TOP SCH ×2 (16:01→18:35)
[2017-04-24] MEDS: CARVEDILOL 12.5 MG TABLET PO SCH ×2 (16:07→21:36)
--- NOTE | 2017-04-24 18:38 | Cardiothoracic Consult ---
Assessment and Plan - Time spent with patient Time spent with patient: Greater than 30 minutes (1) NSTEMI (non-ST elevated myocardial infarction) Status: Acute Assessment and plan: Risk Model and Variables - STS Adult Cardiac Surgery Database Version 2.81 RISK SCORES About the STS Risk Calculator Procedure: CAB Only Risk of Mortality: 0.624% Morbidity or Mortality: 10.454% Long Length of Stay: 3.095% Short Length of Stay: 60.013% Permanent Stroke: 0.46% Prolonged Ventilation: 7.647% DSW Infection: 0.533% Renal Failure: 1.618% Reoperation: 3.721% 51-year-old male with severe multivessel coronary artery disease. I discussed risks benefits and alternatives of CABG with him and he is in agreement and eager to proceed. I will proceed with the surgery on April 28. Current Visit: Yes History of Present Illness - Data of Consult Patient: new to practice Consult date: 04/24/17 - Consult Narrative Reason for consult: Severe multivessel coronary artery disease History of present illness: Mr. Pedersen is a 51 year old male who has been having unusual chest pain on exertion. The patient had a left heart cath today showing severe multivessel coronary artery disease. I was consulted for CABG. The patient does have a family history of premature coronary artery disease. CC: Ronnie Meredith MD - Home Medications and Allergies Home Medications: Home Medications Medication Instructions Recorded Confirmed Type Aspirin EC Tab 81 mg PO QAM 04/22/17 04/23/17 History Losartan Potassium 50 mg PO QAM 04/22/17 04/23/17 History Metformin HCl [Metformin HCl ER] 2,000 mg PO BEDTIME 04/22/17 04/23/17 History Multivit-Mins/Iron/Folic/Lycop 1 each PO QAM 04/22/17 04/23/17 History [Centrum Men's Tablet] OXcarbazepine [Oxcarbazepine] 900 mg PO BID 04/22/17 04/24/17 History [place]-3S/Dha/Epa/Fish Oil [Fish 1 each PO QAM 04/22/17 04/23/17 History Oil 1,200 mg Softgel] Ubidecarenone [Co Q-10] 200 mg PO QAM 04/22/17 04/23/17 History clonazePAM TAB [KlonoPIN] 0.5 mg PO BEDTIME 04/22/17 04/23/17 History Allergies/Adverse Reactions: Allergies Allergy/AdvReac Type Severity Reaction Status Date / Time No Known Allergies Allergy Unverified 04/22/17 16:05 12 point system: reviewed and no additional remarkable complaints except as stated (HPI) Medical,Surgical,& Family Hx - Medical History Cardio: History of: CAD, Hypertension, PVD Neurology: History of: Seizures Endocrine: History of: Diabetes Mellitus (NIDDM), Dyslipidemia Respiratory: History of: Obstructive Sleep Apnea (does not use CPAP at home) Gastrointestinal: History of: GERD - Family History Family History: Reports;: Family Heart Disease - Social History Smoking Status: Never smoker Frequency of Alcohol Use: Rarely Type of Drug Use: None Physical Examination Vital Signs Temp Pulse Resp BP Pulse Ox 97.7 F 79 18 120/80 97 04/22/17 16:01 04/22/17 16:01 04/22/17 16:01 04/22/17 16:01 04/22/17 16:01 General: Present: Other (Morbidly obese) HEENT: Present: PERRL Neck: Present: Supple Neck Cardiac: Present: Reg Rate and Rhythm Lungs: Present: Normal Exam Neuro: Present: Cranial Nerve 2-12 Intact Abdomen: Present: Soft, Active Bowel Sounds Result/EKG - Labs CBC & BMP: 04/24/17 04:42 04/24/17 04:41 Labs: Laboratory Results - last 24 hr 04/23/17 04/24/17 04/24/17 19:02 04:41 04:41 WBC RBC Hgb Hct MCV MCH MCHC RDW Plt Count MPV Neut % (Auto) Lymph % (Auto) [place] % (Auto) Eos % (Auto) Baso % (Auto) Neut # (Auto) Lymph # (Auto) [place] # (Auto) Eos # (Auto) Baso # (Auto) Total Counted Immature Gran % Nucleated RBC % Immature Gran # Segmented Neutrophils Band Neutrophils Lymphocytes Monocytes Eosinophils Nucleated RBCs # Platelet Estimate Immature Plt Fraction Hypochromasia Sodium 135 L Potassium 4.3 Chloride 100 Carbon Dioxide 28 Anion Gap 11.3 BUN 13 Creatinine 0.90 GFR Calculation 129 BUN/Creatinine Ratio 14.00 Glucose 323 H POC Glucose 285 H Calculated Osmolality 281.1 Calcium 7.4 L Magnesium 1.6 L Triglycerides 2250 H Cholesterol 298 H LDL Cholesterol 93.0 VLDL Cholesterol 450.0 HDL Cholesterol 29 L Heart Disease Risk Ratio 10.28 04/24/17 04/24/17 04/24/17 04:42 07:27 12:16 WBC 6.1 RBC 4.93 Hgb 16.0 Hct 41.3 L MCV 83.8 L MCH 33 MCHC 38.7 H RDW 12.6 Plt Count 192 MPV 11.7 Neut % (Auto) 50.7 Lymph % (Auto) 33.6 [place] % (Auto) 10.7 Eos % (Auto) 3.8 Baso % (Auto) 0.7 Neut # (Auto) 3.1 Lymph # (Auto) 2.1 [place] # (Auto) 0.7 Eos # (Auto) 0.2 Baso # (Auto) 0.0 Total Counted 100 Immature Gran % 0.5 Nucleated RBC % 0.0 Immature Gran # 0.03 Segmented Neutrophils 65 Band Neutrophils 1 Lymphocytes 26 Monocytes 6 Eosinophils 2 Nucleated RBCs # 0.00 Platelet Estimate Adequate Immature Plt Fraction 0.0 Hypochromasia Slight Sodium Potassium Chloride Carbon Dioxide Anion Gap BUN Creatinine GFR Calculation BUN/Creatinine Ratio Glucose POC Glucose 217 H 222 H Calculated Osmolality Calcium Magnesium Triglycerides Cholesterol LDL Cholesterol VLDL Cholesterol HDL Cholesterol Heart Disease Risk Ratio 04/24/17 15:27 WBC RBC Hgb Hct MCV MCH MCHC RDW Plt Count MPV Neut % (Auto) Lymph % (Auto) [place] % (Auto) Eos % (Auto) Baso % (Auto) Neut # (Auto) Lymph # (Auto) [place] # (Auto) Eos # (Auto) Baso # (Auto) Total Counted Immature Gran % Nucleated RBC % Immature Gran # Segmented Neutrophils Band Neutrophils Lymphocytes Monocytes Eosinophils Nucleated RBCs # Platelet Estimate Immature Plt Fraction Hypochromasia Sodium Potassium Chloride Carbon Dioxide Anion Gap BUN Creatinine GFR Calculation BUN/Creatinine Ratio Glucose POC Glucose 198 H Calculated Osmolality Calcium Magnesium Triglycerides Cholesterol LDL Cholesterol VLDL Cholesterol HDL Cholesterol Heart Disease Risk Ratio Quality Measures - VTE Contraindication to Pharmacological VTE Prophylaxis: High Risk of Bleeding Specialty Discharge - Follow Up or Referrals
[2017-04-24] MEDS: ATORVASTATIN 10 MG TABLET PO SCH (21:31)
[2017-04-25] MEDS: NITROGLYCERIN 2% OINT 1 INCH/GM PACK TOP SCH ×4 (02:51→17:54)
[2017-04-25] MEDS: CARVEDILOL 12.5 MG TABLET PO SCH ×4 (02:57→21:33)
[2017-04-25] MEDS: SODIUM CHLORIDE 0.9% 1,000 ML IV SCH ×5 (05:09→21:27)
[2017-04-25 05:43] LABS: Calcium 8.4 MG/DL (8.5-10.1); Magnesium 1.7 MG/DL (1.8-2.4); Osmolality,Calculated 278.8 MOS/KG (273-304); Potassium 3.7 MMOL/L (3.5-5.1)
[2017-04-25 05:46] LABS: Basophils % 0.5 % (0.0-0.8); Eosinophils # 0.2 10*3/uL (0.0-0.87); Eosinophils % 2.8 % (0.00-10.9); Hematocrit 40.6 VOL% (42.0-52.0); Immature Granulocytes % 0.5 %; Immature Granulocytes Absolute 0.03 #; Lymphocytes # 1.6 10*3/uL (1.4-4.0); Lymphocytes % 25.6 % (21.2-54.2); Mean Corpuscular HGB Conc 36.9 GM/DL (32-36); Mean Corpuscular Hemoglobin 31 PG (27-34); Mean Corpuscular Volume 83.2 FL (87-102); Mean Platelet Volume 10.6 FL (9.6-12.0); Monocytes # 0.6 10*3/uL (0.11-0.8); Monocytes % 9.3 % (1.7-12.7); Neutrophils # 3.9 10*3/uL (1.4-7.4); Neutrophils % 61.3 % (38.7-73.9); Platelet Count 178 T/CUMM (130-400); Red Blood Count 4.88 MC/CUMM (3.8-5.5); Red Cell Distribution Width 12.4 % (9.3-17.3); White Blood Count 6.4 T/CUMM (4-12)
[2017-04-25] MEDS ORDERED: ENOXAPARIN 40 MG/0.4 ML SYRINGE SUBCUT SCH (09:00)
[2017-04-25] MEDS: COENZYME Q10 100 MG CAPSULE PO SCH (09:22)
[2017-04-25] MEDS: FENOFIBRATE 145 MG TABLET PO SCH (09:23)
[2017-04-25] MEDS: MULTIVITAMIN (CENTRUM) TABLET PO SCH (09:23)
[2017-04-25] MEDS: OXcarbazepine 300 MG TABLET PO SCH ×3 (09:23→21:33)
[2017-04-25] MEDS: PANTOPRAZOLE 40 MG TABLET PO SCH (09:23)
[2017-04-25] MEDS: LOSARTAN 50 MG TABLET PO SCH (09:23)
[2017-04-25] MEDS: ASPIRIN CHEW 81 MG TABLET PO SCH (09:26)
[2017-04-25] MEDS: OMEGA 3 ACID ETHYL ESTERS 1 GM CAPSULE PO SCH (09:27)
[2017-04-25] MEDS: INSULIN REGULAR 100 UNIT/ML SUBCUT SCH ×4 (09:27→21:32)
--- NOTE | 2017-04-25 10:05 | Cardiothoracic Progress Note ---
Assessment and Plan (1) NSTEMI (non-ST elevated myocardial infarction) Status: Acute Assessment and plan: Risk Model and Variables - STS Adult Cardiac Surgery Database Version 2.81 RISK SCORES About the STS Risk Calculator 51-year-old male with severe multivessel coronary artery disease. This morning he has no complaints. I plan for surgery to be on April 28. Meanwhile I will keep him on anti-coagulation with Lovenox twice daily. Current Visit: Yes Exam (Progress Note) - Constitutional Vitals: Period Temp Pulse Resp BP Sys/Moreno Pulse Ox Last 24 Hr 96.4 F-97.6 F 61-78 16-20 108-168/59-102 92-98 Result/EKG - Labs CBC & BMP: 04/25/17 04:53 04/25/17 04:53 Labs: Laboratory Results - last 24 hr 04/24/17 04/24/17 04/24/17 12:16 15:27 19:02 WBC RBC Hgb Hct MCV MCH MCHC RDW Plt Count MPV Neut % (Auto) Lymph % (Auto) [place] % (Auto) Eos % (Auto) Baso % (Auto) Neut # (Auto) Lymph # (Auto) [place] # (Auto) Eos # (Auto) Baso # (Auto) Immature Gran % Nucleated RBC % Immature Gran # Nucleated RBCs # Immature Plt Fraction Sodium Potassium Chloride Carbon Dioxide Anion Gap BUN Creatinine GFR Calculation BUN/Creatinine Ratio Glucose POC Glucose 222 H 198 H 237 H Hemoglobin A1c Calculated Osmolality Calcium Magnesium 04/25/17 04/25/17 04/25/17 04:53 04:53 04:53 WBC 6.4 RBC 4.88 Hgb 15.0 Hct 40.6 L MCV 83.2 L MCH 31 MCHC 36.9 H RDW 12.4 Plt Count 178 MPV 10.6 Neut % (Auto) 61.3 Lymph % (Auto) 25.6 [place] % (Auto) 9.3 Eos % (Auto) 2.8 Baso % (Auto) 0.5 Neut # (Auto) 3.9 Lymph # (Auto) 1.6 [place] # (Auto) 0.6 Eos # (Auto) 0.2 Baso # (Auto) 0.0 Immature Gran % 0.5 Nucleated RBC % 0.0 Immature Gran # 0.03 Nucleated RBCs # 0.00 Immature Plt Fraction 0.0 Sodium 137 Potassium 3.7 Chloride 102 Carbon Dioxide 29 Anion Gap 9.7 BUN 13 Creatinine 0.70 GFR Calculation 143 BUN/Creatinine Ratio 18.00 Glucose 202 H POC Glucose Hemoglobin A1c 8.5 H Calculated Osmolality 278.8 Calcium 8.4 L Magnesium 1.7 L 04/25/17 06:48 WBC RBC Hgb Hct MCV MCH MCHC RDW Plt Count MPV Neut % (Auto) Lymph % (Auto) [place] % (Auto) Eos % (Auto) Baso % (Auto) Neut # (Auto) Lymph # (Auto) [place] # (Auto) Eos # (Auto) Baso # (Auto) Immature Gran % Nucleated RBC % Immature Gran # Nucleated RBCs # Immature Plt Fraction Sodium Potassium Chloride Carbon Dioxide Anion Gap BUN Creatinine GFR Calculation BUN/Creatinine Ratio Glucose POC Glucose 206 H Hemoglobin A1c Calculated Osmolality Calcium Magnesium Quality Measures - VTE Contraindication to Pharmacological VTE Prophylaxis: High Risk of Bleeding Specialty Discharge - Follow Up or Referrals
--- NOTE | 2017-04-25 15:00 | Cardiology Progress Note ---
Assessment and Plan (1) Unstable angina Status: Acute Assessment and plan: 04/25/17: Still minimal angina but with activity He is well beta blocked as his heart rate is in the low 60s We will reduce the dose of losartan and add amlodipine 2.5 mg daily--for his angina Continue the Nitropaste Hemoglobin A1c is 8.5 or so We will consult dietary on Thursday to help with management of his diabetes I appreciate Dr. Mueller increasing the Lovenox to 40 mg twice daily I appreciate Dr. 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 At rest he does not have it Exam (Progress Note) - Constitutional Vitals: Period Temp Pulse Resp BP Sys/Moreno Pulse Ox Last 24 Hr 96.4 F-97.8 F 61-78 16-20 108-168/59-98 94-98 Exam: HEENT: Pupils equal, reactive to light and accommodation Neck: NoJVD or bruit Lungs clear to auscultation Heart: Regular rhythm rate with normal S1 and S2. Apical S4 Abdomen: No hepatosplenomegaly Spine/extremities: No clubbing, cyanosis, or edema Neuro: Nonfocal Psych: No depression or anxiety Right groin puncture site and distal pulse are okay. Result/EKG - Labs CBC & BMP: 04/25/17 04:53 04/25/17 04:53 Labs: Laboratory Results - last 24 hr 04/24/17 04/24/17 04/25/17 15:27 19:02 04:53 WBC RBC Hgb Hct MCV MCH MCHC RDW Plt Count MPV Neut % (Auto) Lymph % (Auto) [place] % (Auto) Eos % (Auto) Baso % (Auto) Neut # (Auto) Lymph # (Auto) [place] # (Auto) Eos # (Auto) Baso # (Auto) Immature Gran % Nucleated RBC % Immature Gran # Nucleated RBCs # Immature Plt Fraction Sodium Potassium Chloride Carbon Dioxide Anion Gap BUN Creatinine GFR Calculation BUN/Creatinine Ratio Glucose POC Glucose 198 H 237 H Hemoglobin A1c 8.5 H Calculated Osmolality Calcium Magnesium 04/25/17 04/25/17 04/25/17 04:53 04:53 06:48 WBC 6.4 RBC 4.88 Hgb 15.0 Hct 40.6 L MCV 83.2 L MCH 31 MCHC 36.9 H RDW 12.4 Plt Count 178 MPV 10.6 Neut % (Auto) 61.3 Lymph % (Auto) 25.6 [place] % (Auto) 9.3 Eos % (Auto) 2.8 Baso % (Auto) 0.5 Neut # (Auto) 3.9 Lymph # (Auto) 1.6 [place] # (Auto) 0.6 Eos # (Auto) 0.2 Baso # (Auto) 0.0 Immature Gran % 0.5 Nucleated RBC % 0.0 Immature Gran # 0.03 Nucleated RBCs # 0.00 Immature Plt Fraction 0.0 Sodium 137 Potassium 3.7 Chloride 102 Carbon Dioxide 29 Anion Gap 9.7 BUN 13 Creatinine 0.70 GFR Calculation 143 BUN/Creatinine Ratio 18.00 Glucose 202 H POC Glucose 206 H Hemoglobin A1c Calculated Osmolality 278.8 Calcium 8.4 L Magnesium 1.7 L 04/25/17 11:58 WBC RBC Hgb Hct MCV MCH MCHC RDW Plt Count MPV Neut % (Auto) Lymph % (Auto) [place] % (Auto) Eos % (Auto) Baso % (Auto) Neut # (Auto) Lymph # (Auto) [place] # (Auto) Eos # (Auto) Baso # (Auto) Immature Gran % Nucleated RBC % Immature Gran # Nucleated RBCs # Immature Plt Fraction Sodium Potassium Chloride Carbon Dioxide Anion Gap BUN Creatinine GFR Calculation BUN/Creatinine Ratio Glucose POC Glucose 212 H Hemoglobin A1c Calculated Osmolality Calcium Magnesium - EKG EKG results: interpreted by me Quality Measures - VTE Contraindication to Pharmacological VTE Prophylaxis: High Risk of Bleeding Specialty Discharge - Follow Up or Referrals
[2017-04-25] MEDS: amLODIPine 2.5 MG TABLET PO SCH (15:04)
[2017-04-25] MEDS: MAGNESIUM SULF RIDER 2 GM in PREMIX 1 EACH IV PRN (17:45)
--- NOTE | 2017-04-25 21:15 | Nuclear Medicine Report ---
TREADMILL CARDIOLITE STUDY DATE: 04/22/2017 REFERRING PHYSICIAN/PRIMARY CARE PHYSICIAN: Dr. Avila Lindsey. HISTORY: A 51-year-old man with chest pain that predominately happened when he walked after he ate. Recently, it is worsened. His troponins were ford zone. I discussed a heart cath versus a treadmill for him. He is strong going to start with the treadmill. Thus, he is referred for evaluation. EXERCISE STRESS WITH CARDIOLITE: The patient was intravenously injected with 10 mCi of Technetium Cardiolite. then He walked slowly on the treadmill for about 6 to 7 minutes. At peak heart rate workload, his heart rate was 125 beats per minute. He did have chest pain. There was upsloping ST depression. At peak exercise, he received 30 mCi of technetium Cardiolite. On the "post" stress images, there was no increased lung uptake, cardiac size was normal to mildly enlarged and RV uptake of thallium was normal. On cine images, there was upper septal, anterolateral, and anterior defect. Cutler also had defect. On the delayed images, there was suggestion redistribution in the septum, apex and the anterior wall. The gated SPECT images revealed moderate global left ventricular systolic dysfunction. The overall ejection fraction is about 40% to 45%. The anterolateral wall and apex were slightly more hypokinetic. IMPRESSION: 1. ABNORMAL STRESS TEST WITH CARDIOLITE. IT WOULD RAISE THE QUESTION THAT BEING PROXIMAL TO MID LEFT ANTERIOR DESCENDING ARTERY ISCHEMIA. 2. THE GATED SPECT IMAGES REVEALED MODERATE GLOBAL LEFT VENTRICULAR SYSTOLIC DYSFUNCTION. THE OVERALL EJECTION FRACTION IS 40% TO 45%. 3. THERE WAS HYPOKINESIS OF THE APEX AND SEPTAL, DISTAL ANTEROLATERAL WALL. 4. NO PRIOR STUDY IS AVAILABLE FOR COMPARISON, CLINICAL CORRELATION IS RECOMMENDED. CLINICAL CORRELATION: Based on the study, the patient does have what appears to be ischemic heart disease causing his chest pain with exertion. They were correlated with symptoms with exertion and his exercise EKG. Await for diagnostic heart cath results. Procedure performed and interpreted at [facility] Department of Radiology. [facility]
[2017-04-25] MEDS: ATORVASTATIN 10 MG TABLET PO SCH (21:32)
[2017-04-25] MEDS: ENOXAPARIN 40 MG/0.4 ML SYRINGE SUBCUT SCH (21:32)
[2017-04-25] MEDS: CHLORHEXIDINE 0.12% ORAL RINSE 60 ML BOTTLE SWISH/SPIT SCH (21:33)
[2017-04-26] MEDS: SODIUM CHLORIDE 0.9% 1,000 ML IV SCH (02:38)
[2017-04-26] MEDS: NITROGLYCERIN 2% OINT 1 INCH/GM PACK TOP SCH ×4 (02:38→17:36)
[2017-04-26] MEDS: CARVEDILOL 12.5 MG TABLET PO SCH ×4 (03:48→21:04)
[2017-04-26 05:16] LABS: Basophils % 0.3 % (0.0-0.8); Calcium 8.5 MG/DL (8.5-10.1); Eosinophils # 0.2 10*3/uL (0.0-0.87); Eosinophils % 2.9 % (0.00-10.9); Hematocrit 38.5 VOL% (42.0-52.0); Immature Granulocytes % 0.5 %; Immature Granulocytes Absolute 0.03 #; Lymphocytes # 1.6 10*3/uL (1.4-4.0); Lymphocytes % 24.8 % (21.2-54.2); Magnesium 1.7 MG/DL (1.8-2.4); Mean Corpuscular HGB Conc 37.1 GM/DL (32-36); Mean Corpuscular Hemoglobin 31 PG (27-34); Mean Corpuscular Volume 84.1 FL (87-102); Mean Platelet Volume 10.8 FL (9.6-12.0); Monocytes # 0.6 10*3/uL (0.11-0.8); Monocytes % 9.7 % (1.7-12.7); Neutrophils # 3.9 10*3/uL (1.4-7.4); Neutrophils % 61.8 % (38.7-73.9); Platelet Count 163 T/CUMM (130-400); Potassium 4.3 MMOL/L (3.5-5.1); Red Blood Count 4.58 MC/CUMM (3.8-5.5); Red Cell Distribution Width 12.6 % (9.3-17.3); White Blood Count 6.3 T/CUMM (4-12)
[2017-04-26 05:17] LABS: Hemoglobin 14.3 GM/DL (14.0-18.0)
[2017-04-26] MEDS: MAGNESIUM SULF RIDER 2 GM in PREMIX 1 EACH IV PRN (07:51)
[2017-04-26] MEDS: COENZYME Q10 100 MG CAPSULE PO SCH (09:00)
[2017-04-26] MEDS: INSULIN REGULAR 100 UNIT/ML SUBCUT SCH ×4 (09:02→21:42)
[2017-04-26] MEDS: OMEGA 3 ACID ETHYL ESTERS 1 GM CAPSULE PO SCH (09:03)
[2017-04-26] MEDS: MULTIVITAMIN (CENTRUM) TABLET PO SCH (09:03)
[2017-04-26] MEDS: FENOFIBRATE 145 MG TABLET PO SCH (09:03)
[2017-04-26] MEDS: PANTOPRAZOLE 40 MG TABLET PO SCH (09:03)
[2017-04-26] MEDS: amLODIPine 2.5 MG TABLET PO SCH (09:03)
[2017-04-26] MEDS: ASPIRIN CHEW 81 MG TABLET PO SCH (09:04)
[2017-04-26] MEDS: OXcarbazepine 300 MG TABLET PO SCH ×2 (09:04→21:04)
[2017-04-26] MEDS: LOSARTAN 25 MG TABLET PO SCH (09:04)
[2017-04-26] MEDS: ENOXAPARIN 40 MG/0.4 ML SYRINGE SUBCUT SCH ×2 (09:08→21:02)
[2017-04-26] MEDS: CHLORHEXIDINE 0.12% ORAL RINSE 60 ML BOTTLE SWISH/SPIT SCH ×2 (09:09→21:42)
--- NOTE | 2017-04-26 09:24 | EKG Report ---
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
--- NOTE | 2017-04-26 09:53 | Cardiothoracic Progress Note ---
Assessment and Plan (1) NSTEMI (non-ST elevated myocardial infarction) Status: Acute Assessment and plan: Risk Model and Variables - STS Adult Cardiac Surgery Database Version 2.81 RISK SCORES About the STS Risk Calculator 51-year-old male with severe multivessel coronary artery disease. This morning he has no complaints. I plan for surgery to be on April 28. I will continue to follow Current Visit: Yes Exam (Progress Note) - Constitutional Vitals: Period Temp Pulse Resp BP Sys/Moreno Pulse Ox Last 24 Hr 97.8 F-98.3 F 63-68 16-20 105-135/54-76 95-98 Result/EKG - Labs CBC & BMP: 04/26/17 04:22 04/26/17 04:22 Labs: Laboratory Results - last 24 hr 04/25/17 04/25/17 04/25/17 11:58 16:26 21:23 WBC RBC Hgb Hct MCV MCH MCHC RDW Plt Count MPV Neut % (Auto) Lymph % (Auto) [place] % (Auto) Eos % (Auto) Baso % (Auto) Neut # (Auto) Lymph # (Auto) [place] # (Auto) Eos # (Auto) Baso # (Auto) Immature Gran % Nucleated RBC % Immature Gran # Nucleated RBCs # Immature Plt Fraction Sodium Potassium Chloride Carbon Dioxide Anion Gap BUN Creatinine GFR Calculation BUN/Creatinine Ratio Glucose POC Glucose 212 H 209 H 252 H Calculated Osmolality Calcium Magnesium 04/26/17 04/26/17 04:22 04:22 WBC 6.3 RBC 4.58 Hgb 14.3 Hct 38.5 L MCV 84.1 L MCH 31 MCHC 37.1 H RDW 12.6 Plt Count 163 MPV 10.8 Neut % (Auto) 61.8 Lymph % (Auto) 24.8 [place] % (Auto) 9.7 Eos % (Auto) 2.9 Baso % (Auto) 0.3 Neut # (Auto) 3.9 Lymph # (Auto) 1.6 [place] # (Auto) 0.6 Eos # (Auto) 0.2 Baso # (Auto) 0.0 Immature Gran % 0.5 Nucleated RBC % 0.0 Immature Gran # 0.03 Nucleated RBCs # 0.00 Immature Plt Fraction 0.0 Sodium 136 Potassium 4.3 Chloride 99 Carbon Dioxide 33 H Anion Gap 8.3 BUN 13 Creatinine 0.90 GFR Calculation 130 BUN/Creatinine Ratio 14.00 Glucose 264 H POC Glucose Calculated Osmolality 280.0 Calcium 8.5 Magnesium 1.7 L Quality Measures - VTE Contraindication to Pharmacological VTE Prophylaxis: High Risk of Bleeding Specialty Discharge - Follow Up or Referrals
[2017-04-26] MEDS ORDERED: MAGNESIUM SULF RIDER 2 GM in PREMIX 1 EACH IV ONE (14:55)
[2017-04-26] MEDS ORDERED: CETIRIZINE 5 MG TABLET PO PRN (14:56)
--- NOTE | 2017-04-26 15:01 | Cardiology Progress Note ---
Assessment and Plan (1) Unstable angina Status: Acute Assessment and plan: 04/25/17: Still minimal angina but with activity He is well beta blocked as his heart rate is in the low 60s We will reduce the dose of losartan and add amlodipine 2.5 mg daily--for his angina Continue the Nitropaste Hemoglobin A1c is 8.5 or so We will consult dietary on Thursday to help with management of his diabetes I appreciate Dr. Mueller increasing the Lovenox to 40 mg twice daily I appreciate Dr. Mueller planing the right revascularization for Thursday04/26/17: Assessment/plan/recommendation: Minimal to no chest pain-it may not even be angina. He says he would not reported It or do anything about it routinely Magnesium is low. We will replete with mag sulfate 2 g IV over about an hour Slow-Mag 64 1 p.o. now and twice daily Zyrtec 5 mg as needed for nasal congestion. Dr. Mueller input is well appreciated. 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 mellitus supervisor intermediates insulin use: without supervisor intermediates use Qualified Code(s): E11.65 - Type 2 diabetes mellitus with hyperglycemia (6) Family history of coronary artery disease in father Status: Chronic Current Visit: Yes (7) Hyperlipidemia Status: Chronic Current Visit: Yes Qualifiers: Hyperlipidemia type: unspecified Qualified Code(s): E78.5 - Hyperlipidemia , unspecified (8) Hypertension Status: Chronic Current Visit: Yes (9) Petit mal epilepsy Status: Chronic Current Visit: Yes (10) Hypomagnesemia Status: Acute Current Visit: Yes Cardiology - PN: Subj Interval history: Minimal to no chest pain. No shortness breath. Some sinus congestion. Exam (Progress Note) - Constitutional Vitals: Period Temp Pulse Resp BP Sys/Moreon Pulse Ox Last 24 Hr 97.5 F-98.3 F 63-71 16-20 105-139/54-74 95-98 Exam: HEENT: Pupils equal, reactive to light and accommodation Neck: NoJVD or bruit Lungs clear to auscultation Heart: Regular rhythm rate with normal S1 and S2. Apical S4 Abdomen: No hepatosplenomegaly Spine/extremities: No clubbing, cyanosis, or edema Neuro: Nonfocal Psych: No depression or anxiety Right groin puncture site and distal pulse are okay. Result/EKG - Labs CBC & BMP: 04/26/17 04:22 04/26/17 04:22 Lab Results: I have reviewed the past 24 hour labs Labs: Laboratory Results - last 24 hr 04/25/17 04/25/17 04/26/17 16:26 21:23 04:22 WBC 6.3 RBC 4.58 Hgb 14.3 Hct 38.5 L MCV 84.1 L MCH 31 MCHC 37.1 H RDW 12.6 Plt Count 163 MPV 10.8 Neut % (Auto) 61.8 Lymph % (Auto) 24.8 [place] % (Auto) 9.7 Eos % (Auto) 2.9 Baso % (Auto) 0.3 Neut # (Auto) 3.9 Lymph # (Auto) 1.6 [place] # (Auto) 0.6 Eos # (Auto) 0.2 Baso # (Auto) 0.0 Immature Gran % 0.5 Nucleated RBC % 0.0 Immature Gran # 0.03 Nucleated RBCs # 0.00 Immature Plt Fraction 0.0 Sodium Potassium Chloride Carbon Dioxide Anion Gap BUN Creatinine GFR Calculation BUN/Creatinine Ratio Glucose POC Glucose 209 H 252 H Calculated Osmolality Calcium Magnesium 04/26/17 04/26/17 04/26/17 04:22 06:53 11:34 WBC RBC Hgb Hct MCV MCH MCHC RDW Plt Count MPV Neut % (Auto) Lymph % (Auto) [place] % (Auto) Eos % (Auto) Baso % (Auto) Neut # (Auto) Lymph # (Auto) [place] # (Auto) Eos # (Auto) Baso # (Auto) Immature Gran % Nucleated RBC % Immature Gran # Nucleated RBCs # Immature Plt Fraction Sodium 136 Potassium 4.3 Chloride 99 Carbon Dioxide 33 H Anion Gap 8.3 BUN 13 Creatinine 0.90 GFR Calculation 130 BUN/Creatinine Ratio 14.00 Glucose 264 H POC Glucose 210 H 245 H Calculated Osmolality 280.0 Calcium 8.5 Magnesium 1.7 L - EKG EKG results: interpreted by me Quality Measures - VTE Contraindication to Pharmacological VTE Prophylaxis: High Risk of Bleeding Specialty Discharge - Follow Up or Referrals
[2017-04-26] MEDS: MAGNESIUM CHLORIDE 64 MG TABLET PO SCH ×2 (15:21→21:04)
[2017-04-26] MEDS: MORPHINE 2 MG/1 ML SYRINGE IV PRN (21:03)
[2017-04-26] MEDS: ATORVASTATIN 10 MG TABLET PO SCH (21:05)
[2017-04-27] MEDS: NITROGLYCERIN 2% OINT 1 INCH/GM PACK TOP SCH ×4 (00:11→17:13)
[2017-04-27] MEDS: CARVEDILOL 12.5 MG TABLET PO SCH ×4 (02:21→22:22)
[2017-04-27 05:24] LABS: Basophils % 0.5 % (0.0-0.8); Eosinophils # 0.3 10*3/uL (0.0-0.87); Eosinophils % 4.8 % (0.00-10.9); Hematocrit 36.5 VOL% (42.0-52.0); Immature Granulocytes % 0.5 %; Immature Granulocytes Absolute 0.03 #; Lymphocytes # 1.7 10*3/uL (1.4-4.0); Lymphocytes % 26.5 % (21.2-54.2); Mean Corpuscular HGB Conc 38.4 GM/DL (32-36); Mean Corpuscular Hemoglobin 32 PG (27-34); Mean Corpuscular Volume 82.6 FL (87-102); Mean Platelet Volume 11.6 FL (9.6-12.0); Monocytes # 0.7 10*3/uL (0.11-0.8); Monocytes % 10.5 % (1.7-12.7); Neutrophils # 3.6 10*3/uL (1.4-7.4); Neutrophils % 57.2 % (38.7-73.9); Platelet Count 167 T/CUMM (130-400); Red Blood Count 4.42 MC/CUMM (3.8-5.5); Red Cell Distribution Width 12.2 % (9.3-17.3); White Blood Count 6.3 T/CUMM (4-12)
[2017-04-27 05:39] LABS: Calcium 7.7 MG/DL (8.5-10.1); Magnesium 1.8 MG/DL (1.8-2.4); Potassium 3.9 MMOL/L (3.5-5.1)
--- NOTE | 2017-04-27 06:15 | EKG Report ---
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
--- NOTE | 2017-04-27 07:59 | EKG Report ---
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
[2017-04-27] MEDS: SODIUM CHLORIDE 0.9% 1,000 ML IV SCH ×2 (08:13→10:55)
[2017-04-27] MEDS: FENOFIBRATE 145 MG TABLET PO SCH (09:06)
[2017-04-27] MEDS: OXcarbazepine 300 MG TABLET PO SCH ×2 (09:07→22:22)
[2017-04-27] MEDS: MAGNESIUM CHLORIDE 64 MG TABLET PO SCH ×2 (09:07→22:22)
[2017-04-27] MEDS: COENZYME Q10 100 MG CAPSULE PO SCH (09:07)
[2017-04-27] MEDS: ASPIRIN CHEW 81 MG TABLET PO SCH (09:08)
[2017-04-27] MEDS: LOSARTAN 25 MG TABLET PO SCH (09:08)
[2017-04-27] MEDS: amLODIPine 2.5 MG TABLET PO SCH (09:09)
[2017-04-27] MEDS: PANTOPRAZOLE 40 MG TABLET PO SCH (09:09)
[2017-04-27] MEDS: INSULIN REGULAR 100 UNIT/ML SUBCUT SCH ×4 (09:10→22:23)
[2017-04-27] MEDS: MULTIVITAMIN (CENTRUM) TABLET PO SCH (09:10)
[2017-04-27] MEDS: ENOXAPARIN 40 MG/0.4 ML SYRINGE SUBCUT SCH (09:11)
[2017-04-27] MEDS: CHLORHEXIDINE 4% SOLN 118 ML BOTTLE TOP SCH ×3 (09:12→22:22)
[2017-04-27] MEDS: OMEGA 3 ACID ETHYL ESTERS 1 GM CAPSULE PO SCH (09:12)
[2017-04-27] MEDS: CHLORHEXIDINE 0.12% ORAL RINSE 60 ML BOTTLE SWISH/SPIT SCH (09:20)
--- NOTE | 2017-04-27 14:08 | Cardiology Progress Note ---
Assessment and Plan - Time spent with patient Time spent with patient: Less than 30 minutes (1) Coronary artery disease Status: Acute Assessment and plan: See plan of care listed below. Current Visit: Yes (2) Epigastric pain Status: Acute Assessment and plan: See plan of care listed below. Current Visit: Yes (3) Hypertension Status: Chronic Assessment and plan: See plan of care listed below. Current Visit: Yes (4) Diabetes mellitus Status: Chronic Assessment and plan: See plan of care listed below. Current Visit: Yes Qualifiers: Diabetes mellitus type: type 2 Diabetes mellitus complication status: with hyperglycemia Diabetes mellitus front office associate insulin use: without front office associate use Qualified Code(s): E11.65 - Type 2 diabetes mellitus with hyperglycemia (5) Hyperlipidemia Status: Chronic Assessment and plan: See plan of care listed below. Current Visit: Yes Qualifiers: Hyperlipidemia type: unspecified Qualified Code(s): E78.5 - Hyperlipidemia , unspecified (6) Family history of coronary artery disease in father Status: Chronic Assessment and plan: See plan of care listed below. Current Visit: Yes (7) [place] epilepsy Status: Chronic Assessment and plan: See plan of care listed below. Current Visit: Yes Cardiology - PN: Subj Interval history: Encyclopedia Research Worker: Dr. Meredith PCP: Dr. Lindsey SUMMARY: Mr. Pedersen is a 51 y/o WM who presented to the emergency room on 2016 with complaints of intermittent chest pain/epigastric pain ongoing for 2 weeks suspicious for GI versus cardiac etiology. He underwent nuclear stress testing on 04/24/2017 was found to have a positive treadmill. He underwent left heart catheterization which revealed three-vessel coronary artery disease. He was recommended he proceed with coronary artery bypass grafting. 2016: Mr. Pedersen reports he is doing well this morning. He states yesterday evening he did get up and walk around and when he returned to bed he did have some chest and back discomfort which eventually subsided. He is planned for coronary artery bypass grafting with Dr. Mueller tomorrow. His labs and vital signs are currently stable. Glucose levels remain elevated. He is on sliding scale insulin. He voices no other complaints at this time. He reports he is slightly anxious about the recovery period but states he is just ready to get this over with. We will continue to follow. ASSESSMENT/PLAN: 1. CORONARY ARTERY DISEASE: Left heart catheterization on 04/24/2017 revealed significant three-vessel coronary artery disease including an occluded proximal LAD with collaterals from the right coronary, critical stenosis of the ostium of the diagonal, critical stenosis of an obtuse marginal, and the mid right coronary artery. He was noted to have mild global left systolic dysfunction with EF 45-50%. He is for CABG with Dr. Mueller tomorrow. 2. EPIGASTRIC PAIN: It sounds as though Mr. Pedersen may have two separate issues going on, cardiac and GI. If he continues to have GI issues following CABG, he will need to be referred to a group activities aide to further evaluate his postprandial epigastric pain, nausea, and weight loss. 3. HYPERTENSION: Currently well controlled. We have continued his home medications. Will continue to monitor and adjust accordingly. 4. DIABETES: Poorly controlled. Hemoglobin A1c 8.5. He has been started on accuchecks with sliding scale insulin. 5. HYPERLIPIDEMIA: Has been taking Fish Oil supplement at home. Lipid panel revealed triglycerides 2250, cholesterol 298, LDL 93, HDL 29. Will repeat lipid panel to ensure accurate results. Continue Lovaza. Continue Atorvastatin 10mg PO QHS. Continue Co Q-10. 6. FAMILY HISTORY OF CAD: He reports his father had CABG 3 at age 67 and subsequently from an NM at age 69. 7. SEIZURE DISORDER: Will continue seizure medication. Patient reports he has had epilepsy since age 22. Exam (Progress Note) - Constitutional Vitals: Period Temp Pulse Resp BP Sys/Omreno Pulse Ox Last 24 Hr 96.4 F-98.6 F 59-62 16-20 107-113/49-80 91-98 Exam: General appearance: Appears well. Pleasant and cooperative. Overweight, no acute distress. Head exam: Present: normal inspection, normocephalic, atraumatic. Absent: hematoma, laceration Eye exam: Present: EOMI. Absent: conjunctival injection, nystagmus, periorbital swelling, scleral icterus, laceration to eyelids, jaundice Pupils: Present: PERRL. Absent: constricted, dilated, fixed, irregular, unequal ENT exam: Present: normal exam, normal external ear exam, mucous membranes moist. Neck exam: Present: normal inspection, midline trachea. Absent: masses, lymphadenopathy, tenderness, thyromegaly, carotid bruit Respiratory exam: Present: clear to auscultation bilaterally. Absent: accessory muscle use, chest wall tenderness, rales, rhonchi, wheezing. Cardiovascular exam: Present: regular rate and rhythm. Absent: gallop, JVD, rubs, murmur GI/Abdominal exam: Present: normal bowel sounds, soft. Absent: distended, firm , hernia, mass, tenderness. Extremities exam: Present: Normal Gait, No Clubbing, No Cyanosis, Upper Extr. Pulses 2+, Lower Extr. Pulses 2+, No edema. Capillary refill less than 3 seconds. Musculoskeletal: Present: No Fluid Collection, No Pain, Normal Range of Motion Back exam: Present: normal inspection. Absent: muscle spasm, vertebral tenderness Neurological exam: Present: awake, alert, oriented X3, Moves all extremities well without hemiparesis or paralysis. Grossly intact without resting or essential tremor Psychiatric exam: Present: normal affect, normal mood Skin exam: Present: normal color, warm, dry, intact. Absent: cyanosis, diaphoretic, rash, urticaria Result/EKG - Labs CBC & BMP: 04/27/17 04:04 04/27/17 04:04 Lab Results: I have reviewed the past 24 hour labs Labs: Laboratory Results - last 24 hr 04/26/17 04/26/17 04/27/17 14:52 21:02 04:04 WBC 6.3 RBC 4.42 Hgb 14.0 Hct 36.5 L MCV 82.6 L MCH 32 MCHC 38.4 H RDW 12.2 Plt Count 167 MPV 11.6 Neut % (Auto) 57.2 Lymph % (Auto) 26.5 [place] % (Auto) 10.5 Eos % (Auto) 4.8 Baso % (Auto) 0.5 Neut # (Auto) 3.6 Lymph # (Auto) 1.7 [place] # (Auto) 0.7 Eos # (Auto) 0.3 Baso # (Auto) 0.0 Immature Gran % 0.5 Nucleated RBC % 0.0 Immature Gran # 0.03 Nucleated RBCs # 0.00 Immature Plt Fraction 0.0 Sodium Potassium Chloride Carbon Dioxide Anion Gap BUN Creatinine GFR Calculation BUN/Creatinine Ratio Glucose POC Glucose 235 H 262 H Calculated Osmolality Calcium Magnesium Blood Type Antibody Screen Crossmatch 04/27/17 04/27/17 04/27/17 04:04 04:04 07:27 WBC RBC Hgb Hct MCV MCH MCHC RDW Plt Count MPV Neut % (Auto) Lymph % (Auto) [place] % (Auto) Eos % (Auto) Baso % (Auto) Neut # (Auto) Lymph # (Auto) [place] # (Auto) Eos # (Auto) Baso # (Auto) Immature Gran % Nucleated RBC % Immature Gran # Nucleated RBCs # Immature Plt Fraction Sodium 136 Potassium 3.9 Chloride 101 Carbon Dioxide 29 Anion Gap 9.9 BUN 12 Creatinine 0.70 GFR Calculation 144 BUN/Creatinine Ratio 17.00 Glucose 220 H POC Glucose 222 H Calculated Osmolality 278.0 Calcium 7.7 L Magnesium 1.8 Blood Type A POSITIVE Antibody Screen Negative Crossmatch See Detail 04/27/17 04/27/17 11:33 Unknown WBC RBC Hgb Hct MCV MCH MCHC RDW Plt Count MPV Neut % (Auto) Lymph % (Auto) [place] % (Auto) Eos % (Auto) Baso % (Auto) Neut # (Auto) Lymph # (Auto) [place] # (Auto) Eos # (Auto) Baso # (Auto) Immature Gran % Nucleated RBC % Immature Gran # Nucleated RBCs # Immature Plt Fraction Sodium Potassium Chloride Carbon Dioxide Anion Gap BUN Creatinine GFR Calculation BUN/Creatinine Ratio Glucose POC Glucose 241 H Calculated Osmolality Calcium Magnesium Blood Type A POSITIVE Antibody Screen Crossmatch - EKG EKG results: interpreted by me, sinus rhythm Quality Measures - VTE Contraindication to Pharmacological VTE Prophylaxis: High Risk of Bleeding Specialty Discharge - Follow Up or Referrals
[2017-04-27] MEDS ORDERED: LACTULOSE 20 GM/30 ML UDCUP PO ONE (14:12)
[2017-04-27] MEDS: ATORVASTATIN 10 MG TABLET PO SCH (22:22)
[2017-04-27] MEDS: DOCUSATE SODIUM 100 MG CAPSULE PO SCH (22:22)
[2017-04-28] MEDS: MORPHINE 2 MG/1 ML SYRINGE IV PRN ×2 (00:05→12:39)
[2017-04-28] MEDS: CHLORHEXIDINE 0.12% ORAL RINSE 60 ML BOTTLE SWISH/SPIT SCH ×3 (01:06→21:17)
[2017-04-28] MEDS: ENOXAPARIN 40 MG/0.4 ML SYRINGE SUBCUT SCH ×2 (01:06→10:37)
[2017-04-28] MEDS: NITROGLYCERIN 2% OINT 1 INCH/GM PACK TOP SCH ×3 (01:06→15:36)
[2017-04-28] MEDS ORDERED: VANCOMYCIN 1,000 MG VIAL ONE (04:33)
[2017-04-28] MEDS ORDERED: PAPAVERINE 60 MG/2 ML VIAL ONE (04:33)
[2017-04-28] MEDS ORDERED: TISSUE ADHESIVE 1 EACH APPLICATOR TOP ONE ×2 (04:33→09:41)
[2017-04-28 04:49] LABS: Basophils % 0.7 % (0.0-0.8); Eosinophils # 0.3 10*3/uL (0.0-0.87); Eosinophils % 4.8 % (0.00-10.9); Hematocrit 38.7 VOL% (42.0-52.0); Hemoglobin 14.6 GM/DL (14.0-18.0); Immature Granulocytes % 0.8 %; Immature Granulocytes Absolute 0.05 #; Lymphocytes # 1.7 10*3/uL (1.4-4.0); Mean Corpuscular HGB Conc 37.7 GM/DL (32-36); Mean Corpuscular Hemoglobin 31 PG (27-34); Mean Platelet Volume 10.7 FL (9.6-12.0); Monocytes # 0.6 10*3/uL (0.11-0.8); Neutrophils # 3.3 10*3/uL (1.4-7.4); Neutrophils % 55.7 % (38.7-73.9); Platelet Count 175 T/CUMM (130-400); Red Blood Count 4.66 MC/CUMM (3.8-5.5); Red Cell Distribution Width 12.3 % (9.3-17.3)
[2017-04-28] MEDS ORDERED: DIAZEPAM 5 MG TABLET PO ONE (05:00)
[2017-04-28] MEDS ORDERED: CEFUROXIME INJ 1,500 MG in SODIUM CHLORIDE 0.9% 100 ML IV ONE (05:00)
[2017-04-28] MEDS ORDERED: amLODIPine 2.5 MG TABLET PO SCH (05:00)
[2017-04-28] MEDS ORDERED: FAMOTIDINE 20 MG TABLET PO ONE (05:00)
[2017-04-28 05:02] LABS: Calcium 8.3 MG/DL (8.5-10.1); Magnesium 1.6 MG/DL (1.8-2.4)
[2017-04-28 05:06] LABS: Band Neutrophils 1 % (0-10); Eosinophils 7 % (0-10); Hypochromasia 1+; Lymphocytes 28 % (20-55); Segmented Neutrophils 53 % (50-85); Total Cells Counted 100
[2017-04-28 05:07] LABS: Microcytosis 1+; Tear Drop Cells Few
[2017-04-28 05:08] LABS: Platelet Estimate Adequate
[2017-04-28] MEDS ORDERED: CALCIUM CHLORIDE 1,000 MG/10 ML SYRINGE IV ONE ×2 (05:37→08:37)
[2017-04-28] MEDS: CARVEDILOL 12.5 MG TABLET PO SCH ×2 (05:37→10:36)
[2017-04-28] MEDS: PANTOPRAZOLE 40 MG TABLET PO SCH ×2 (05:37→10:37)
[2017-04-28] MEDS ORDERED: PHENYLEPHRINE DRIP 20 MG/250 ML PREMIX IV ONE ×2 (05:37→10:53)
[2017-04-28] MEDS ORDERED: VECURONIUM 10 MG VIAL IV ONE (05:38)
[2017-04-28] MEDS ORDERED: ETOMIDATE 20 MG/10 ML VIAL IV ONE (05:38)
[2017-04-28] MEDS ORDERED: DEXMEDETOMIDINE 200 MCG/2 ML VIAL IV ONE (05:38)
[2017-04-28] MEDS ORDERED: HEPARIN/NACL 0.9% 2 UNITS/ML 500 ML IV ONE (05:38)
[2017-04-28] MEDS ORDERED: NITROGLYCERIN DRIP 50 MG/250 ML BOTTLE IV ONE (05:39)
[2017-04-28] MEDS ORDERED: AMINOCAPROIC ACID 5,000 MG/20 ML VIAL IV ONE (05:39)
[2017-04-28] MEDS ORDERED: SODIUM CHLORIDE 0.9% 1,000 ML IV ONE ×2 (05:39→12:08)
[2017-04-28] MEDS ORDERED: LACTATED RINGERS 1,000 ML IV ONE ×2 (05:39→16:00)
[2017-04-28] MEDS ORDERED: SODIUM CHLORIDE 0.9% 100 ML IV ONE ×2 (05:39→12:08)
[2017-04-28 07:42] LABS: ABG HCO3 26.2 MMOL/L (20-26); ABG Oxygen Saturation 99.8 % (95-100); ABG PCO2 43.5 MM HG (35-48); ABG PH 7.403 (7.35-7.45); ABG TCO2 23.5 MMOL/L (23-27); Glucose Heart Surgery 229 MG/DL (74-106); Hematocrit Heart Surgery 41.8 PERCENT (42-52); Hemoglobin Heart Surgery 13.6 G/DL (14.0-18.0); Ionized Calcium Arterial 1.19 MMOL/L (1.21-1.46); PCO2 Patient Temp Arterial 43.5 MMHG; PH Patient Temp Arterial 7.403; Patient Temperature 37 CELCIUS; Potassium Heart/CVR 3.7 MMOL/L (3.5-5.1); Sodium Heart/CVR 138 MMOL/L (135-145)
[2017-04-28 08:04] LABS: Apearance,Urine Slightly Hazy (Clear); Bilirubin,Urine Negative (Negative); Blood, Urine Small mg/dL (Negative); Glucose,Urine (UA) 50 mg/dL (Negative); Ketones,Urine Negative (Negative); Nitrite,Urine Negative (Negative); Protein,Urine Negative; RBC,Urine 22 /HPF (0-4); Squamous Epithelial Cell,Urine Occasional /HPF (0-10); Urine Color Yellow (Yellow); Urine Specific Gravity 1.023 (1.001-1.035); Urine Urobilinogen < 2.0 EU/DL (0.2-1.0); WBC,Urine 1 /HPF (0-6)
[2017-04-28] MEDS ORDERED: PHENYLEPHRINE DRIP 40 MG/250 ML PREMIX IV ONE ×2 (08:36→11:31)
[2017-04-28] MEDS ORDERED: NITROPRUSSIDE 50 MG/2 ML VIAL ONE (08:36)
[2017-04-28] MEDS ORDERED: POTASSIUM CHLORIDE RIDER 100 ML IV ONE (08:37)
[2017-04-28 09:08] LABS: Hemoglobin Heart Surgery 10.9 G/DL (14.0-18.0); PCO2 Patient Temp Venous 42.3 MM HG; PH Patient Temp Venous 7.447; Potassium Heart/CVR 4.9 MMOL/L (3.5-5.1); VBG HCO3 29.1 MEQ/L (24-28); VBG Oxygen Saturation 68.2 %; VBG PCO2 46.2 MMHG (41-51); VBG PH 7.417; VBG PO2 28.6 MMHG (17-40)
[2017-04-28 09:09] LABS: PO2 Patient Temp Venous 24.8 MM HG
[2017-04-28 09:44] LABS: Hematocrit Heart Surgery 33.7 PERCENT (42-52); Hemoglobin Heart Surgery 10.9 G/DL (14.0-18.0); PCO2 Patient Temp Venous 41.4 MM HG; PH Patient Temp Venous 7.436; PO2 Patient Temp Venous 33.4 MM HG; Potassium Heart/CVR 3.5 MMOL/L (3.5-5.1); VBG Base Excess 3.5 MEQ/L (0-4); VBG HCO3 27.1 MEQ/L (24-28); VBG Oxygen Saturation 76.4 %; VBG PCO2 47.8 MMHG (41-51); VBG PH 7.392; VBG PO2 41.2 MMHG (17-40)
[2017-04-28] MEDS ORDERED: INSULIN REGULAR DRIP 100 ML IV ONE (09:58)
[2017-04-28 10:09] LABS: Hemoglobin Heart Surgery 12.5 G/DL (14.0-18.0); PH Patient Temp Venous 7.408; PO2 Patient Temp Venous 28.6 MM HG; Potassium Heart/CVR 5.3 MMOL/L (3.5-5.1); VBG Base Excess 4.1 MEQ/L (0-4); VBG HCO3 29.6 MEQ/L (24-28); VBG Oxygen Saturation 67.9 %; VBG PH 7.408; VBG PO2 28.6 MMHG (17-40)
[2017-04-28] MEDS: INSULIN REGULAR 100 UNIT/ML SUBCUT SCH ×2 (10:35→15:36)
[2017-04-28] MEDS: ASPIRIN CHEW 81 MG TABLET PO SCH (10:36)
[2017-04-28] MEDS: DOCUSATE SODIUM 100 MG CAPSULE PO SCH (10:36)
[2017-04-28] MEDS: COENZYME Q10 100 MG CAPSULE PO SCH (10:36)
[2017-04-28] MEDS: LOSARTAN 25 MG TABLET PO SCH (10:36)
[2017-04-28] MEDS: MULTIVITAMIN (CENTRUM) TABLET PO SCH (10:36)
[2017-04-28] MEDS: OMEGA 3 ACID ETHYL ESTERS 1 GM CAPSULE PO SCH (10:37)
[2017-04-28] MEDS: MAGNESIUM CHLORIDE 64 MG TABLET PO SCH (10:37)
[2017-04-28] MEDS: FENOFIBRATE 145 MG TABLET PO SCH (10:37)
[2017-04-28] MEDS: OXcarbazepine 300 MG TABLET PO SCH ×2 (10:38→21:09)
[2017-04-28] MEDS: SODIUM CHLORIDE 0.9% 1,000 ML IV SCH (10:38)
[2017-04-28 10:50] LABS: ABG Oxygen Saturation 93.1 % (95-100); ABG PCO2 45.1 MM HG (35-48); ABG PH 7.405 (7.35-7.45); ABG PO2 65.3 MM HG (80-95); ABG TCO2 25.2 MMOL/L (23-27); Glucose Heart Surgery 303 MG/DL (74-106); Hematocrit Heart Surgery 35.1 PERCENT (42-52); Hemoglobin Heart Surgery 11.4 G/DL (14.0-18.0); PCO2 Patient Temp Arterial 45.1 MMHG; PH Patient Temp Arterial 7.405; PO2 Patient Temp Arterial 65.3 MM HG; Patient Temperature 37 CELCIUS; Potassium Heart/CVR 3.8 MMOL/L (3.5-5.1); Sodium Heart/CVR 135 MMOL/L (135-145)
[2017-04-28] MEDS ORDERED: ALBUMIN 5% 12.5 GM/250 ML VIAL IV ONE ×2 (10:50→11:53)
[2017-04-28] MEDS ORDERED: PROTAMINE SULFATE 250 MG/25 ML VIAL IV ONE (10:54)
[2017-04-28] MEDS ORDERED: FUROSEMIDE 20 MG/2 ML VIAL ONE (10:54)
[2017-04-28] MEDS ORDERED: HEPARIN 10,000 UNIT/10 ML VIAL ONE (10:54)
[2017-04-28] MEDS ORDERED: SODIUM BICARBONATE 50 MEQ/50 ML SYRINGE IV ONE (10:54)
[2017-04-28] MEDS ORDERED: ALBUMIN 25% 25 GM/100 ML VIAL IV ONE (10:54)
[2017-04-28] MEDS ORDERED: methylPREDNISolone SOD SUC 1,000 MG/8 ML VIAL ONE (10:54)
[2017-04-28] MEDS ORDERED: MAGNESIUM SULFATE 1 GM/2 ML VIAL ONE (10:54)
[2017-04-28] MEDS ORDERED: DEXTROSE 5% KCL 20 MEQ 40 MEQ/2,000 ML BAG IV ONE (10:54)
[2017-04-28] MEDS ORDERED: POTASSIUM CHLORIDE 20 MEQ/10 ML VIAL ONE (10:55)
[2017-04-28] MEDS ORDERED: PROTAMINE SULFATE 50 MG/5 ML VIAL IV ONE (10:55)
[2017-04-28 11:11] LABS: ABG Base Excess 2.8 MMOL/L (-2.5-2.5); ABG HCO3 26.9 MMOL/L (20-26); ABG Oxygen Saturation 98.7 % (95-100); ABG PH 7.424 (7.35-7.45); ABG TCO2 24.4 MMOL/L (23-27); Glucose Heart Surgery 290 MG/DL (74-106); Hemoglobin Heart Surgery 11.7 G/DL (14.0-18.0); Ionized Calcium Arterial 1.17 MMOL/L (1.21-1.46); PH Patient Temp Arterial 7.424; Patient Temperature 37 CELCIUS; Potassium Heart/CVR 5.8 MMOL/L (3.5-5.1); Sodium Heart/CVR 136 MMOL/L (135-145)
[2017-04-28] MEDS: PHENYLEPHRINE DRIP 40 MG/250 ML PREMIX IV SCH (12:00)
[2017-04-28] MEDS: SODIUM CHLORIDE 0.9% 250 ML IV PRN ×3 (12:00→14:30)
[2017-04-28] MEDS: SODIUM CHLORIDE 0.45% 1,000 ML IV SCH ×3 (12:00→23:36)
[2017-04-28] MEDS ORDERED: ePHEDrine 50 MG/ML AMP ONE (12:07)
[2017-04-28] MEDS ORDERED: SEVOFLURANE 1 UNIT/15 MINUTE INH ONE (12:07)
[2017-04-28] MEDS ORDERED: MIDAZOLAM 10 MG/2 ML VIAL ONE (12:07)
[2017-04-28] MEDS ORDERED: GLYCOPYRROLATE 0.4 MG/2 ML VIAL ONE (12:07)
[2017-04-28] MEDS ORDERED: ALBUTEROL INHALER 8 GM INH ONE (12:08)
[2017-04-28] MEDS ORDERED: DEXTROSE 50% 25 GM/50 ML SYRINGE IV PRN ×2 (12:13)
[2017-04-28] MEDS ORDERED: CALCIUM CHLORIDE 1,000 MG/10 ML SYRINGE IV PRN (12:13)
[2017-04-28] MEDS ORDERED: ACETAMINOPHEN 650 MG SUPP RECTAL PRN (12:13)
[2017-04-28] MEDS ORDERED: MIDAZOLAM 2 MG/2 ML VIAL IV PRN (12:13)
[2017-04-28] MEDS ORDERED: INSULIN REGULAR 100 UNIT/ML IV PRN (12:13)
[2017-04-28] MEDS ORDERED: ONDANSETRON 4 MG/2 ML VIAL IV PRN (12:13)
[2017-04-28] MEDS ORDERED: INSULIN REGULAR DRIP 100 ML IV SCH (12:13)
[2017-04-28] MEDS ORDERED: POTASSIUM CHLORIDE RIDER 10 MEQ in PREMIX 1 EACH IV PRN (12:13)
[2017-04-28] MEDS ORDERED: CHLORHEXIDINE 4% SOLN 118 ML BOTTLE TOP PRN (12:13)
--- NOTE | 2017-04-28 12:14 | Operative Note ---
Date of procedure: 04/28/17 Pre-op diagnosis: Severe multivessel coronary artery disease Post-op diagnosis: same Procedure: Procedure: 1. [place] of bilateral great saphenous vein 2. [place] of the left internal mammary artery 3. Institution of cardiopulmonary bypass 4. Coronary artery bypass graft 4 with SINHA to LAD, saphenous vein graft to the posterior descending artery, saphenous vein graft to the first obtuse marginal artery, saphenous vein graft to the ramus artery Findings: This is a 51-year-old male with severe multivessel coronary artery disease. Distal targets on the posterior descending artery, ramus artery, first obtuse marginal artery as well as the LAD were all reasonable measuring around 1.5-2 mm each. Flow was very good after institution of all the bypasses. The patient recovered very well to sinus rhythm without any problems. Details of the procedure: The patient was brought into the OR table and placed supine and general endotracheal anesthesia was induced without any problems. Timeout was performed. Antibiotics were given. The chest was prepped and draped in the fashion. Midline incision was made on the chest. The sternum was opened. Hemostasis was achieved. I dissected down the left internal mammary artery in its entirety from the first rib all the way down to the xiphisternum. I then inserted and angled chest tube to the left chest. After that, I turned my attention to opening the pericardium. I exposed the heart and aorta. I then started placing the pericardial stitches. Heparin was given. I then cannulating the proximal arch of the aorta. After that I cannulated the right atrium to the IVC. I then proceeded with preparing the mammary. I then made my pericardial window. Started the cardiopulmonary bypass. I inserted the cardioplegia needle. Cross-clamp was applied. Cardioplegia was given. The heart was arrested successfully. I then identified the posterior descending artery. Distal anastomosis was achieved between saphenous vein and the PDA with a 7-0 Prolene. It was tested and it was in good condition. I then moved my attention to the first obtuse marginal artery. It was diseased except for the distal segment. I identified that segment and the open-ended. This anastomosis was again achieved between second saphenous ein and the artery. This was tested and it was condition. I then turned my attention to the ramus artery. I did my arteriotomy and the distal anastomosis was created between the saphenous vein graft and the ramus artery. The flow was very good after institution of the bypass. I then started rewarming the patient and t distal anastomosis was achieved between the SINHA and LAD. The LAD was diseased proximally. I made anastomosis to distal to that. I then removed the lamp and the heart recovered well to sinus rhythm. I then instituted the proximal anastomosis to the obtuse marginal graft, the ramus graft then then to the PDA graft. Hemostasis was achieved. I weaned the patient from bypass in good condition. Protamine was given. Hemostasis was achieved. All counts were correct at the end of the procedure. The patient was decannulated successfully. The pericardium was partially closed to cover the right ventricle and the grafts, chest tube were inserted. The sternum was closed using wires. Subcutaneous tissues closed uterine using running PDS. The skin was closed Monocryl. The patient was transferred to ICU in good condition. Anesthesia: IMAN Surgeon / Physician: Althea Mueller Estimated blood loss: other (Cardiopulmonary bypass) Tourniquet Time (Minutes): 52 Specimens: none sent Condition: critical Disposition: ICU Results - Labs CBC & BMP: 04/28/17 11:11 04/28/17 03:47 Discharge Plan - Discharge Medications No Action [place]-3S/Dha/Epa/Fish Oil [Fish Oil 1,200 mg Softgel] 1 each PO QAM Aspirin EC Tab 81 mg PO QAM clonazePAM TAB [KlonoPIN] 0.5 mg PO BEDTIME Multivit-Mins/Iron/Folic/Lycop [Centrum Men's Tablet] 1 each PO QAM Losartan Potassium 50 mg PO QAM Metformin HCl [Metformin HCl ER] 2,000 mg PO BEDTIME Ubidecarenone [Co Q-10] 200 mg PO QAM OXcarbazepine [Oxcarbazepine] 900 mg PO BID - Follow Up or Referral - Forms/Instructions Instructions: Coronary Artery Disease (GEN), Left Heart Catheterization (DC), Heart Healthy Diet (GEN)
[2017-04-28 12:29] LABS: ABG Base Excess 1.5 MMOL/L (-2.5-2.5); ABG HCO3 25.7 MMOL/L (20-26); ABG Oxygen Saturation 95.9 % (95-100); ABG PCO2 46.3 MM HG (35-48); ABG PH 7.375 (7.35-7.45); ABG PO2 81.5 MM HG (80-95); ABG TCO2 24.5 MMOL/L (23-27); Glucose Heart Surgery 291 MG/DL (74-106); Hematocrit Heart Surgery 33.2 PERCENT (42-52); Hemoglobin Heart Surgery 10.8 G/DL (14.0-18.0); Potassium Heart/CVR 3.5 MMOL/L (3.5-5.1)
[2017-04-28 12:30] LABS: Basophils % 0.2 % (0.0-0.8); Eosinophils # 0.1 10*3/uL (0.0-0.87); Eosinophils % 0.8 % (0.00-10.9); Hematocrit 29.1 VOL% (42.0-52.0); Immature Granulocytes % 0.9 %; Lymphocytes # 0.7 10*3/uL (1.4-4.0); Lymphocytes % 6.8 % (21.2-54.2); Mean Corpuscular HGB Conc 37.1 GM/DL (32-36); Mean Corpuscular Hemoglobin 31 PG (27-34); Mean Corpuscular Volume 83.4 FL (87-102); Mean Platelet Volume 10.4 FL (9.6-12.0); Monocytes # 0.6 10*3/uL (0.11-0.8); Monocytes % 5.8 % (1.7-12.7); Neutrophils # 9.2 10*3/uL (1.4-7.4); Neutrophils % 85.5 % (38.7-73.9); Platelet Count 120 T/CUMM (130-400); Red Cell Distribution Width 12.3 % (9.3-17.3)
[2017-04-28] MEDS: ALBUMIN 5% 12.5 GM in PREMIX 1 EACH IV PRN ×6 (12:30→20:14)
[2017-04-28 12:36] LABS: Red Blood Count 3.49 MC/CUMM (3.8-5.5); White Blood Count 10.7 T/CUMM (4-12)
[2017-04-28 12:37] LABS: Hemoglobin 10.8 GM/DL (14.0-18.0)
[2017-04-28 12:40] LABS: INR 1.2; PT Patient Result 12.6 SECS; Partial Thromboplastin Time 27.1 SECS (0-40)
[2017-04-28] MEDS: POTASSIUM CHLORIDE RIDER 20 MEQ in PREMIX 1 EACH IV PRN (12:49)
[2017-04-28 12:53] LABS: Lactic Acid 0.8 MMOL/L (0.4-2.0)
[2017-04-28 13:09] LABS: Magnesium 1.5 MG/DL (1.8-2.4); Osmolality,Calculated 285.7 MOS/KG (273-304); Potassium 3.6 MMOL/L (3.5-5.1)
[2017-04-28] MEDS: MAGNESIUM SULF RIDER 2 GM in PREMIX 1 EACH IV PRN ×2 (13:13→14:54)
[2017-04-28 13:16] LABS: HIV Antigen/Antibody Result Nonreactive (Nonreactive); Hepatitis B Surface Ag Quant < 0.10 Index; Hepatitis B Surface Ag Result Negative (Negative); Hepatitis C Virus Ab Quant 0.02 Index; Hepatitis C Virus Ab Result Negative (Negative)
--- NOTE | 2017-04-28 13:25 | XRay Report ---
History: Endotracheal tube placement. Line placement Date: 04/28/2017 Study: Chest x-ray AP portable Comparison exam: April 22, 2017 The patient has undergone interval median sternotomy. Endotracheal tube is well-positioned with its tip superior to the frank. The right IJ central line is positioned with its tip at the atrial caval junction. Nasogastric tube enters the stomach. Chest tubes overlie the left hemithorax. There is mild cardiomegaly. The mediastinal contours are stable for postop median sternotomy. There is no pneumothorax. There is some mild postop pneumomediastinum. There is platelike atelectasis in the mid to lower lungs bilaterally, left more than right. There is no new or worsening infiltrate. There is no gross pleural effusion. Osseous structures are unchanged. Impression: Satisfactory positioning of the supporting tubes. No evidence of a pneumothorax. Mild postoperative pneumomediastinum. Mild bibasilar postoperative subsegmental atelectasis PROCEDURE INTERPRETED AT [facility] DEPARTMENT OF RADIOLOGY Final Report Signed by: Dr. Juaan Broussard
[2017-04-28] MEDS: KETOROLAC 30 MG/1 ML VIAL IV SCH ×2 (13:37→19:29)
[2017-04-28 14:26] LABS: ABG Base Excess 1.1 MMOL/L (-2.5-2.5); ABG HCO3 25.4 MMOL/L (20-26); ABG Oxygen Saturation 96.8 % (95-100); ABG PCO2 47.4 MM HG (35-48); ABG PH 7.363 (7.35-7.45); ABG PO2 88.9 MM HG (80-95); ABG TCO2 24.5 MMOL/L (23-27); Glucose Heart Surgery 248 MG/DL (74-106); Hematocrit Heart Surgery 31.9 PERCENT (42-52); Hemoglobin Heart Surgery 10.3 G/DL (14.0-18.0); Potassium Heart/CVR 3.9 MMOL/L (3.5-5.1)
--- NOTE | 2017-04-28 14:36 | Cardiology Progress Note ---
Assessment and Plan - Time spent with patient Time spent with patient: Less than 30 minutes (1) Coronary artery disease Status: Acute Assessment and plan: See plan of care listed below. Current Visit: Yes (2) Epigastric pain Status: Acute Assessment and plan: See plan of care listed below. Current Visit: Yes (3) Hypertension Status: Chronic Assessment and plan: See plan of care listed below. Current Visit: Yes (4) Diabetes mellitus Status: Chronic Assessment and plan: See plan of care listed below. Current Visit: Yes Qualifiers: Diabetes mellitus type: type 2 Diabetes mellitus complication status: with hyperglycemia Diabetes mellitus correction insulin use: without correction use Qualified Code(s): E11.65 - Type 2 diabetes mellitus with hyperglycemia (5) Hyperlipidemia Status: Chronic Assessment and plan: See plan of care listed below. Current Visit: Yes Qualifiers: Hyperlipidemia type: unspecified Qualified Code(s): E78.5 - Hyperlipidemia , unspecified (6) Family history of coronary artery disease in father Status: Chronic Assessment and plan: See plan of care listed below. Current Visit: Yes (7) Petit mal epilepsy Status: Chronic Assessment and plan: See plan of care listed below. Current Visit: Yes Cardiology - PN: Subj Interval history: Mathematical Engineering Technician: Dr. Meredith PCP: Dr. Lindsey SUMMARY: Mr. Pedersen is a 51 y/o WM who presented to the emergency room on 2016 with complaints of intermittent chest pain/epigastric pain ongoing for 2 weeks suspicious for GI versus cardiac etiology. He underwent nuclear stress testing on 04/24/2017 was found to have a positive treadmill. He underwent left heart catheterization which revealed three-vessel coronary artery disease including an occluded proximal LAD with collaterals from the right coronary, critical stenosis of the ostium of the diagonal, critical stenosis of an obtuse marginal, and the mid right coronary artery. He was noted to have mild global left systolic dysfunction with EF 45-50%. He was recommended he proceed with coronary artery bypass grafting. On 04/28/17, he underwent coronary artery bypass grafting 4 with SINHA to LAD, saphenous vein graft to the posterior descending artery, saphenous vein graft to the first obtuse marginal artery, and saphenous vein graft to the ramus artery. 2016: Mr. Pedersen is seen postoperatively in the CVR. He is being extubated at the time of my exam. He is not currently requiring any vasopressors. He has 2 mediastinal chest tubes in place and one left pleural chest tube in place. Bilateral lower extremity dressings are dry and intact sternal incision dressing is dry and intact. He reports he is in a good deal of pain but remains in good spirits. We will continue to monitor. ASSESSMENT/PLAN: 1. CORONARY ARTERY DISEASE: Left heart catheterization on 04/24/2017 revealed significant three-vessel coronary artery disease. He is status post coronary artery bypass grafting 4. 2. EPIGASTRIC PAIN: If he continues to have GI issues following CABG, he will need to be referred to a medical billing instructor to further evaluate his postprandial epigastric pain, nausea, and weight loss. 3. HYPERTENSION: Currently well controlled. Will continue to monitor and adjust accordingly. 4. DIABETES: Poorly controlled. Hemoglobin A1c 8.5. He has been started on accuchecks is currently on insulin infusion. 5. HYPERLIPIDEMIA: Lipid panel revealed triglycerides 2250, cholesterol 298, LDL 93, HDL 29. Continue atorvastatin 40mg PO QHS. 6. FAMILY HISTORY OF CAD: He reports his father had CABG 3 at age 67 and subsequently from an [place] at age 69. 7. SEIZURE DISORDER: Will continue seizure medication once okay with CV surgery. Patient reports he has had epilepsy since age 22. Exam (Progress Note) - Constitutional Vitals: Period Temp Pulse Resp BP Sys/Moreno Pulse Ox Last 24 Hr 96.5 F-98.2 F 58-73 10-23 96-138/45-85 94-100 Exam: General appearance: Appears well. Pleasant and cooperative. Overweight, no acute distress. Head exam: Present: normal inspection, normocephalic, atraumatic. Absent: hematoma, laceration Eye exam: Present: EOMI. Absent: conjunctival injection, nystagmus, periorbital swelling, scleral icterus, laceration to eyelids, jaundice Pupils: Present: PERRL. Absent: constricted, dilated, fixed, irregular, unequal ENT exam: Present: normal exam, normal external ear exam, mucous membranes moist. Right IJ triple-lumen central line intact. Neck exam: Present: normal inspection, midline trachea. Absent: masses, lymphadenopathy, tenderness, thyromegaly, carotid bruit Respiratory exam: Present: clear to auscultation bilaterally, left pleural chest tube in place. Mediastinal chest tube in place 2. Absent: accessory muscle use, chest wall tenderness, rales, rhonchi, wheezing. Cardiovascular exam: Present: regular rate and rhythm. Midsternal chest dressing dry and intact. Absent: gallop, JVD, rubs, murmur GI/Abdominal exam: Present: soft. Absent: distended, firm, hernia, mass, tenderness. Extremities exam: Present: No Clubbing, No Cyanosis, Upper Extr. Pulses 2+, Lower Extr. Pulses 2+, No edema. Bilateral lower extremity dressings dry and intact. Capillary refill less than 3 seconds. Right radial arterial line in place. Musculoskeletal: Present: No Fluid Collection, No Pain, Normal Range of Motion Back exam: Present: Unable to assess due to habitus. Neurological exam: Present: awake, alert, oriented X3, Moves all extremities well without hemiparesis or paralysis. Grossly intact without resting or essential tremor Psychiatric exam: Present: normal affect, normal mood Skin exam: Present: normal color, warm, dry, intact. Absent: cyanosis, diaphoretic, rash, urticaria Result/EKG - Labs CBC & BMP: 04/28/17 12:23 04/28/17 12:27 Lab Results: I have reviewed the past 24 hour labs Labs: Laboratory Results - last 24 hr 04/27/17 04/27/17 04/27/17 04:04 15:19 19:35 WBC RBC Hgb Hct MCV MCH MCHC RDW Plt Count MPV Neut % (Auto) Lymph % (Auto) [place] % (Auto) Eos % (Auto) Baso % (Auto) Neut # (Auto) Lymph # (Auto) [place] # (Auto) Eos # (Auto) Baso # (Auto) Total Counted Immature Gran % Nucleated RBC % Immature Gran # Segmented Neutrophils Band Neutrophils Lymphocytes Monocytes Eosinophils Basophils Nucleated RBCs # Platelet Estimate Immature Plt Fraction Hypochromasia Microcytosis Tear Drop Cells INR PT Patient/Control Mix Circ Anticoag PTT Patient Temperature ABG pH ABG pH at Pt Temp ABG pCO2 ABG pCO2 at Pt Temp ABG pO2 ABG pO2 at Pt Temp ABG HCO3 ABG Total CO2 ABG O2 Saturation ABG Base Excess ABG Sodium VBG pH VBG pCO2 VBG pO2 VBG HCO3 VBG Total CO2 VBG O2 Saturation VBG Base Excess Hemoglobin Hematocrit Ionized Calcium FiO2 Sodium Potassium Chloride Carbon Dioxide Anion Gap BUN Creatinine GFR Calculation BUN/Creatinine Ratio Glucose POC Glucose 228 H 234 H Calculated Osmolality Lactic Acid Calcium Venous Ioniz Calcium Magnesium Urine Color Urine Appearance Urine pH Ur Specific [place] Urine Protein Urine Glucose (UA) Urine Ketones Urine Blood Urine Nitrate Urine Bilirubin Urine Urobilinogen Urine Leukocytes Urine RBC Urine WBC Ur Squamous Epith Cells Ur Culture Indicated? Hep Bs Antigen Hepatitis C Antibody HIV 1&2 Antigen & Ab Blood Type A POSITIVE Antibody Screen Negative Crossmatch See Detail 04/28/17 04/28/17 04/28/17 03:47 03:47 04:45 WBC 6.0 RBC 4.66 Hgb 14.6 Hct 38.7 L MCV 83.0 L MCH 31 MCHC 37.7 H RDW 12.3 Plt Count 175 MPV 10.7 Neut % (Auto) 55.7 Lymph % (Auto) 28.0 [place] % (Auto) 10.0 Eos % (Auto) 4.8 Baso % (Auto) 0.7 Neut # (Auto) 3.3 Lymph # (Auto) 1.7 [place] # (Auto) 0.6 Eos # (Auto) 0.3 Baso # (Auto) 0.0 Total Counted 100 Immature Gran % 0.8 Nucleated RBC % 0.0 Immature Gran # 0.05 Segmented Neutrophils 53 Band Neutrophils 1 Lymphocytes 28 Monocytes 9 Eosinophils 7 Basophils 2.0 H Nucleated RBCs # 0.00 Platelet Estimate Adequate Immature Plt Fraction 0.0 Hypochromasia 1+ Microcytosis 1+ Tear Drop Cells Few INR PT Patient/Control Mix Circ Anticoag PTT Patient Temperature ABG pH ABG pH at Pt Temp ABG pCO2 ABG pCO2 at Pt Temp ABG pO2 ABG pO2 at Pt Temp ABG HCO3 ABG Total CO2 ABG O2 Saturation ABG Base Excess ABG Sodium VBG pH VBG pCO2 VBG pO2 VBG HCO3 VBG Total CO2 VBG O2 Saturation VBG Base Excess Hemoglobin Hematocrit Ionized Calcium FiO2 Sodium 136 Potassium 4.0 Chloride 100 Carbon Dioxide 31 Anion Gap 9.0 BUN 13 Creatinine 0.70 GFR Calculation 144 BUN/Creatinine Ratio 18.00 Glucose 228 H POC Glucose 214 H Calculated Osmolality 278.0 Lactic Acid Calcium 8.3 L Venous Ioniz Calcium Magnesium 1.6 L Urine Color Urine Appearance Urine pH Ur Specific [place] Urine Protein Urine Glucose (UA) Urine Ketones Urine Blood Urine Nitrate Urine Bilirubin Urine Urobilinogen Urine Leukocytes Urine RBC Urine WBC Ur Squamous Epith Cells Ur Culture Indicated? Hep Bs Antigen Hepatitis C Antibody HIV 1&2 Antigen & Ab Blood Type Antibody Screen Crossmatch 04/28/17 04/28/17 04/28/17 07:00 07:34 07:34 WBC RBC Hgb Hct MCV MCH MCHC RDW Plt Count 100 L D MPV Neut % (Auto) Lymph % (Auto) [place] % (Auto) Eos % (Auto) Baso % (Auto) Neut # (Auto) Lymph # (Auto) [place] # (Auto) Eos # (Auto) Baso # (Auto) Total Counted Immature Gran % Nucleated RBC % Immature Gran # Segmented Neutrophils Band Neutrophils Lymphocytes Monocytes Eosinophils Basophils Nucleated RBCs # Platelet Estimate Immature Plt Fraction Hypochromasia Microcytosis Tear Drop Cells INR PT Patient/Control Mix Circ Anticoag PTT Patient Temperature 37 ABG pH 7.403 ABG pH at Pt Temp 7.403 ABG pCO2 43.5 ABG pCO2 at Pt Temp 43.5 ABG pO2 375.0 H ABG pO2 at Pt Temp 375.0 ABG HCO3 26.2 H ABG Total CO2 23.5 ABG O2 Saturation 99.8 ABG Base Excess 2.0 ABG Sodium 138 VBG pH VBG pCO2 VBG pO2 VBG HCO3 VBG Total CO2 VBG O2 Saturation VBG Base Excess Hemoglobin 13.6 L Hematocrit 41.8 L Ionized Calcium 1.19 L FiO2 Sodium Potassium 3.7 Chloride Carbon Dioxide Anion Gap BUN Creatinine GFR Calculation BUN/Creatinine Ratio Glucose 229 H POC Glucose Calculated Osmolality Lactic Acid Calcium Venous Ioniz Calcium Magnesium Urine Color Yellow Urine Appearance Slightly hazy Urine pH 5.0 Ur Specific [place] 1.023 Urine Protein Negative Urine Glucose (UA) 50 Urine Ketones Negative Urine Blood Small Urine Nitrate Negative Urine Bilirubin Negative Urine Urobilinogen < 2.0 H Urine Leukocytes Negative Urine RBC 22 Urine WBC 1 Ur Squamous Epith Cells Occasional Ur Culture Indicated? Not indicated Hep Bs Antigen Hepatitis C Antibody HIV 1&2 Antigen & Ab Blood Type Antibody Screen Crossmatch 04/28/17 04/28/17 04/28/17 09:06 09:35 10:05 WBC RBC Hgb Hct MCV MCH MCHC RDW Plt Count MPV Neut % (Auto) Lymph % (Auto) [place] % (Auto) Eos % (Auto) Baso % (Auto) Neut # (Auto) Lymph # (Auto) [place] # (Auto) Eos # (Auto) Baso # (Auto) Total Counted Immature Gran % Nucleated RBC % Immature Gran # Segmented Neutrophils Band Neutrophils Lymphocytes Monocytes Eosinophils Basophils Nucleated RBCs # Platelet Estimate Immature Plt Fraction Hypochromasia Microcytosis Tear Drop Cells INR PT Patient/Control Mix Circ Anticoag PTT Patient Temperature 35 34 37 ABG pH ABG pH at Pt Temp 7.447 7.436 7.408 ABG pCO2 ABG pCO2 at Pt Temp 42.3 41.4 48.0 ABG pO2 ABG pO2 at Pt Temp 24.8 33.4 28.6 ABG HCO3 ABG Total CO2 ABG O2 Saturation ABG Base Excess ABG Sodium 128 L 133 L 132 L VBG pH 7.417 7.392 7.408 VBG pCO2 46.2 47.8 48.0 VBG pO2 28.6 41.2 H 28.6 VBG HCO3 29.1 H 27.1 29.6 H VBG Total CO2 30.5 26.3 31.1 VBG O2 Saturation 68.2 76.4 67.9 VBG Base Excess 4.0 3.5 4.1 H Hemoglobin 10.9 L 10.9 L D 12.5 L Hematocrit 32.0 L 33.7 L 37.0 L Ionized Calcium FiO2 80.00 80.00 80.00 Sodium Potassium 4.9 3.5 5.3 H Chloride Carbon Dioxide Anion Gap BUN Creatinine GFR Calculation BUN/Creatinine Ratio Glucose 391 H 393 H 350 H POC Glucose Calculated Osmolality Lactic Acid Calcium Venous Ioniz Calcium 0.94 1.07 L 1.03 Magnesium Urine Color Urine Appearance Urine pH Ur Specific [place] Urine Protein Urine Glucose (UA) Urine Ketones Urine Blood Urine Nitrate Urine Bilirubin Urine Urobilinogen Urine Leukocytes Urine RBC Urine WBC Ur Squamous Epith Cells Ur Culture Indicated? Hep Bs Antigen Hepatitis C Antibody HIV 1&2 Antigen & Ab Blood Type Antibody Screen Crossmatch 04/28/17 04/28/17 04/28/17 10:45 10:45 11:10 WBC RBC Hgb Hct MCV MCH MCHC RDW Plt Count 111 L MPV Neut % (Auto) Lymph % (Auto) [place] % (Auto) Eos % (Auto) Baso % (Auto) Neut # (Auto) Lymph # (Auto) [place] # (Auto) Eos # (Auto) Baso # (Auto) Total Counted Immature Gran % Nucleated RBC % Immature Gran # Segmented Neutrophils Band Neutrophils Lymphocytes Monocytes Eosinophils Basophils Nucleated RBCs # Platelet Estimate Immature Plt Fraction Hypochromasia Microcytosis Tear Drop Cells INR PT Patient/Control Mix Circ Anticoag PTT Patient Temperature 37 37 ABG pH 7.405 7.424 ABG pH at Pt Temp 7.405 7.424 ABG pCO2 45.1 42.0 ABG pCO2 at Pt Temp 45.1 42.0 ABG pO2 65.3 L 117.0 H ABG pO2 at Pt Temp 65.3 117.0 ABG HCO3 27.0 H 26.9 H ABG Total CO2 25.2 24.4 ABG O2 Saturation 93.1 L 98.7 ABG Base Excess 3.0 H 2.8 H ABG Sodium 135 136 VBG pH VBG pCO2 VBG pO2 VBG HCO3 VBG Total CO2 VBG O2 Saturation VBG Base Excess Hemoglobin 11.4 L 11.7 L Hematocrit 35.1 L 36.0 L Ionized Calcium 1.40 1.17 L FiO2 Sodium Potassium 3.8 5.8 H Chloride Carbon Dioxide Anion Gap BUN Creatinine GFR Calculation BUN/Creatinine Ratio Glucose 303 H 290 H POC Glucose Calculated Osmolality Lactic Acid Calcium Venous Ioniz Calcium Magnesium Urine Color Urine Appearance Urine pH Ur Specific [place] Urine Protein Urine Glucose (UA) Urine Ketones Urine Blood Urine Nitrate Urine Bilirubin Urine Urobilinogen Urine Leukocytes Urine RBC Urine WBC Ur Squamous Epith Cells Ur Culture Indicated? Hep Bs Antigen Hepatitis C Antibody HIV 1&2 Antigen & Ab Blood Type Antibody Screen Crossmatch 04/28/17 04/28/17 04/28/17 11:11 12:09 12:23 WBC 10.7 D RBC 3.49 L D Hgb 10.8 L D Hct 29.1 L MCV 83.4 L MCH 31 MCHC 37.1 H RDW 12.3 Plt Count 123 L 120 L MPV 10.4 Neut % (Auto) 85.5 H Lymph % (Auto) 6.8 L [place] % (Auto) 5.8 Eos % (Auto) 0.8 Baso % (Auto) 0.2 Neut # (Auto) 9.2 H Lymph # (Auto) 0.7 L [place] # (Auto) 0.6 Eos # (Auto) 0.1 Baso # (Auto) 0.0 Total Counted Immature Gran % 0.9 Nucleated RBC % 0.0 Immature Gran # 0.10 Segmented Neutrophils Band Neutrophils Lymphocytes Monocytes Eosinophils Basophils Nucleated RBCs # 0.00 Platelet Estimate Immature Plt Fraction 0.0 Hypochromasia Microcytosis Tear Drop Cells INR PT Patient/Control Mix Circ Anticoag PTT Patient Temperature ABG pH ABG pH at Pt Temp ABG pCO2 ABG pCO2 at Pt Temp ABG pO2 ABG pO2 at Pt Temp ABG HCO3 ABG Total CO2 ABG O2 Saturation ABG Base Excess ABG Sodium VBG pH VBG pCO2 VBG pO2 VBG HCO3 VBG Total CO2 VBG O2 Saturation VBG Base Excess Hemoglobin Hematocrit Ionized Calcium FiO2 Sodium Potassium Chloride Carbon Dioxide Anion Gap BUN Creatinine GFR Calculation BUN/Creatinine Ratio Glucose POC Glucose Calculated Osmolality Lactic Acid Calcium Venous Ioniz Calcium Magnesium Urine Color Urine Appearance Urine pH Ur Specific [place] Urine Protein Urine Glucose (UA) Urine Ketones Urine Blood Urine Nitrate Urine Bilirubin Urine Urobilinogen Urine Leukocytes Urine RBC Urine WBC Ur Squamous Epith Cells Ur Culture Indicated? Hep Bs Antigen Negative Hepatitis C Antibody Negative HIV 1&2 Antigen & Ab Nonreactive Blood Type Antibody Screen Crossmatch 04/28/17 04/28/17 04/28/17 12:23 12:27 12:27 WBC RBC Hgb Hct MCV MCH MCHC RDW Plt Count MPV Neut % (Auto) Lymph % (Auto) [place] % (Auto) Eos % (Auto) Baso % (Auto) Neut # (Auto) Lymph # (Auto) [place] # (Auto) Eos # (Auto) Baso # (Auto) Total Counted Immature Gran % Nucleated RBC % Immature Gran # Segmented Neutrophils Band Neutrophils Lymphocytes Monocytes Eosinophils Basophils Nucleated RBCs # Platelet Estimate Immature Plt Fraction Hypochromasia Microcytosis Tear Drop Cells INR 1.2 PT Patient/Control Mix 12.6 Circ Anticoag PTT 27.1 Patient Temperature ABG pH 7.375 ABG pH at Pt Temp ABG pCO2 46.3 ABG pCO2 at Pt Temp ABG pO2 81.5 ABG pO2 at Pt Temp ABG HCO3 25.7 ABG Total CO2 24.5 ABG O2 Saturation 95.9 ABG Base Excess 1.5 ABG Sodium VBG pH VBG pCO2 VBG pO2 VBG HCO3 VBG Total CO2 VBG O2 Saturation VBG Base Excess Hemoglobin 10.8 L Hematocrit 33.2 L Ionized Calcium FiO2 Sodium 138 Potassium 3.6 3.5 Chloride 104 Carbon Dioxide 30 Anion Gap 7.6 BUN 11 Creatinine 0.80 GFR Calculation 136 BUN/Creatinine Ratio 13.00 Glucose 308 H 291 H POC Glucose Calculated Osmolality 285.7 Lactic Acid 0.8 Calcium 8.0 L Venous Ioniz Calcium Magnesium 1.5 L Urine Color Urine Appearance Urine pH Ur Specific [place] Urine Protein Urine Glucose (UA) Urine Ketones Urine Blood Urine Nitrate Urine Bilirubin Urine Urobilinogen Urine Leukocytes Urine RBC Urine WBC Ur Squamous Epith Cells Ur Culture Indicated? Hep Bs Antigen Hepatitis C Antibody HIV 1&2 Antigen & Ab Blood Type Antibody Screen Crossmatch 04/28/17 14:03 WBC RBC Hgb Hct MCV MCH MCHC RDW Plt Count MPV Neut % (Auto) Lymph % (Auto) [place] % (Auto) Eos % (Auto) Baso % (Auto) Neut # (Auto) Lymph # (Auto) [place] # (Auto) Eos # (Auto) Baso # (Auto) Total Counted Immature Gran % Nucleated RBC % Immature Gran # Segmented Neutrophils Band Neutrophils Lymphocytes Monocytes Eosinophils Basophils Nucleated RBCs # Platelet Estimate Immature Plt Fraction Hypochromasia Microcytosis Tear Drop Cells INR PT Patient/Control Mix Circ Anticoag PTT Patient Temperature ABG pH 7.363 ABG pH at Pt Temp ABG pCO2 47.4 ABG pCO2 at Pt Temp ABG pO2 88.9 ABG pO2 at Pt Temp ABG HCO3 25.4 ABG Total CO2 24.5 ABG O2 Saturation 96.8 ABG Base Excess 1.1 ABG Sodium VBG pH VBG pCO2 VBG pO2 VBG HCO3 VBG Total CO2 VBG O2 Saturation VBG Base Excess Hemoglobin 10.3 L Hematocrit 31.9 L Ionized Calcium FiO2 Sodium Potassium 3.9 Chloride Carbon Dioxide Anion Gap BUN Creatinine GFR Calculation BUN/Creatinine Ratio Glucose 248 H POC Glucose Calculated Osmolality Lactic Acid Calcium Venous Ioniz Calcium Magnesium Urine Color Urine Appearance Urine pH Ur Specific [place] Urine Protein Urine Glucose (UA) Urine Ketones Urine Blood Urine Nitrate Urine Bilirubin Urine Urobilinogen Urine Leukocytes Urine RBC Urine WBC Ur Squamous Epith Cells Ur Culture Indicated? Hep Bs Antigen Hepatitis C Antibody HIV 1&2 Antigen & Ab Blood Type Antibody Screen Crossmatch - EKG EKG results: interpreted by me, sinus rhythm Quality Measures - VTE Contraindication to Pharmacological VTE Prophylaxis: High Risk of Bleeding Specialty Discharge - Follow Up or Referrals
[2017-04-28] MEDS: MORPHINE 10 MG/1 ML VIAL IV PRN ×3 (14:39→22:03)
--- NOTE | 2017-04-28 17:38 | Anesthesia Post-Op ---
Anesthesia Post OP - Post Ansesthetic Evaluation Patient seen in post op: Yes Resp: within normal limits CV: within normal limits Mental: within normal limits Temp: within normal limits [id number]: within normal limits Nausea and Vomiting: within normal limits Pain: within normal limits
--- NOTE | 2017-04-28 17:57 | Sleep Medicine Consult ---
Assessment and Plan (1) Suspected sleep apnea Status: Acute Assessment and plan: Symptomatically, this patient has a history of sleep apnea, but lost a large amount of weight, seems to be doing okay historically. At this point, he will recover from heart surgery and will follow up later on his hospital course and reassess. We may be able to do home sleep testing on him at some point to see if there is evidence of significant sleep apnea. Thank you for this consult and the opportunity to participate in his care. Current Visit: Yes (2) Hypertension Status: Chronic Assessment and plan: The prevalence rate for obstructive sleep apnea patients with hypertension is 35 %. That rate can be as high as 80% in patients who require 4 or more medications for blood pressure control. Current Visit: Yes (3) Coronary artery disease Status: Acute Assessment and plan: The [place] data from Lancet 2005 proved significant reduction in the risk of fatal and nonfatal cardiac events in patients with severe obstructive sleep apnea compliant with CPAP, in comparison with those noncompliant with CPAP for severe sleep apnea. Current Visit: Yes (4) Diabetes mellitus Status: Chronic Assessment and plan: The prevalence rate for obstructive sleep apnea in patients with type 2 diabetes can be as high as 86%. Those patients with moderate to severe obstructive sleep apnea are at a greater risk for diabetic nephropathy and neuropathy. Compliance with CPAP therapy for these patients can lead to improvement in glycemic control and improvement in insulin sensitivity. Current Visit: Yes Qualifiers: Diabetes mellitus type: type 2 Diabetes mellitus complication status: with hyperglycemia Diabetes mellitus senior living insulin use: without intermediate accountant use Qualified Code(s): E11.65 - Type 2 diabetes mellitus with hyperglycemia History of Present Illness Chief complaint: Sleep apnea History of present illness: Mr. Pedersen is a 51 year old male who recently was evaluated with chest pain and underwent cardiac cath after an abnormal treadmill evaluation. He was found to have three-vessel coronary artery disease with mild ischemic cardiomyopathy. He had bypass surgery today and is already been extubated. Sleep medicine was consulted to see him regarding the possibility of sleep medicine. He actually has a history of obstructive sleep apnea diagnosed several years ago. He weighed well over 300 pounds at the time of that diagnosis. He had difficulty tolerating CPAP and began a vigorous effort to get his weight down. He lost down into the low 200s and has been off of CPAP for years. His states that he is doing much better. He does continue to snore intermittently but he primarily sleeps on his side in his stomach and does quite well. He denies any significant issues with abnormal breathing during sleep at present. Home Medications Medication Instructions Recorded Confirmed Type Aspirin EC Tab 81 mg PO QAM 04/22/17 04/23/17 History Losartan Potassium 50 mg PO QAM 04/22/17 04/23/17 History Metformin HCl [Metformin HCl ER] 2,000 mg PO BEDTIME 04/22/17 04/23/17 History Multivit-Mins/Iron/Folic/Lycop 1 each PO QAM 04/22/17 04/23/17 History [Centrum Men's Tablet] OXcarbazepine [Oxcarbazepine] 900 mg PO BID 04/22/17 04/24/17 History [place]-3S/Dha/Epa/Fish Oil [Fish 1 each PO QAM 04/22/17 04/23/17 History Oil 1,200 mg Softgel] Ubidecarenone [Co Q-10] 200 mg PO QAM 04/22/17 04/23/17 History clonazePAM TAB [KlonoPIN] 0.5 mg PO BEDTIME 04/22/17 04/23/17 History Allergies Allergy/AdvReac Type Severity Reaction Status Date / Time No Known Allergies Allergy Unverified 04/22/17 16:05 Review of systems: Otherwise unremarkable from a sleep medicine standpoint Exam ([place]) H&P - Constitutional Vitals: Period Temp Pulse Resp BP Sys/Moreno Pulse Ox Last 24 Hr 96.5 F-98.2 F 58-73 10-23 93-138/45-85 94-100 Exam: He is alert and responsive in no acute distress. Pupils equal round reactive to light and accommodation. Extraocular movements intact. Oropharynx with a class III Mallampati exam. Neck is supple without adenopathy. Chest with midline sternal incision clean dry dressing. Chest with symmetrical breath sounds. Cardiac exam reveals a regular rhythm without murmur. Abdomen soft nontender without palpable hepatosplenomegaly. Chest tubes are in place. Extremities without significant edema or clubbing. Neurologically, for being postop bypass surgery earlier today, he is intact and answers questions appropriately. Medical,Surgical,& Family Hx - Medical History Cardio: History of: CAD, Hypertension, PVD No history of: ID Neurology: History of: Seizures Endocrine: History of: Diabetes Mellitus (NIDDM), Dyslipidemia Respiratory: History of: Obstructive Sleep Apnea (does not use CPAP at home) Gastrointestinal: History of: GERD - Family History Family History: Reports;: Family Heart Disease - Social History Smoking Status: Never smoker Frequency of Alcohol Use: Rarely Type of Drug Use: None Results - Labs CBC & BMP: 04/28/17 12:23 04/28/17 12:27 Lab Results: I have reviewed the past 24 hour labs Quality Measures - VTE Contraindication to Pharmacological VTE Prophylaxis: High Risk of Bleeding Specialty Discharge - Follow Up or Referrals
[2017-04-28] MEDS: CEFUROXIME INJ 1,500 MG in SODIUM CHLORIDE 0.9% 100 ML IV SCH (19:29)
[2017-04-29] MEDS: KETOROLAC 30 MG/1 ML VIAL IV SCH ×4 (01:13→18:44)
[2017-04-29] MEDS: SODIUM CHLORIDE 0.45% 1,000 ML IV SCH ×2 (01:23→10:01)
[2017-04-29 03:25] LABS: Basophils % 0.1 % (0.0-0.8); Eosinophils % 0.1 % (0.00-10.9); Immature Granulocytes % 0.3 %; Immature Granulocytes Absolute 0.04 #; Lymphocytes # 0.7 10*3/uL (1.4-4.0); Lymphocytes % 5.4 % (21.2-54.2); Mean Corpuscular Hemoglobin 31 PG (27-34); Mean Corpuscular Volume 85.6 FL (87-102); Mean Platelet Volume 10.6 FL (9.6-12.0); Monocytes # 0.9 10*3/uL (0.11-0.8); Monocytes % 7.5 % (1.7-12.7); Neutrophils # 10.6 10*3/uL (1.4-7.4); Neutrophils % 86.6 % (38.7-73.9); Platelet Count 126 T/CUMM (130-400); Red Blood Count 2.92 MC/CUMM (3.8-5.5); Red Cell Distribution Width 12.8 % (9.3-17.3); White Blood Count 12.2 T/CUMM (4-12)
[2017-04-29 03:52] LABS: Calcium 7.3 MG/DL (8.5-10.1); Magnesium 1.6 MG/DL (1.8-2.4); Osmolality,Calculated 278.4 MOS/KG (273-304); Potassium 3.9 MMOL/L (3.5-5.1)
[2017-04-29] MEDS: SODIUM CHLORIDE 0.9% 250 ML IV PRN ×2 (05:50→06:18)
[2017-04-29] MEDS: ALBUMIN 5% 12.5 GM in PREMIX 1 EACH IV PRN ×2 (06:02→07:00)
[2017-04-29] MEDS: POTASSIUM CHLORIDE RIDER 20 MEQ in PREMIX 1 EACH IV PRN (06:08)
[2017-04-29] MEDS: MAGNESIUM SULF RIDER 2 GM in PREMIX 1 EACH IV PRN ×2 (06:10→08:23)
[2017-04-29] MEDS ORDERED: ACETAMINOPHEN 325 MG TABLET ONE (07:12)
[2017-04-29] MEDS ORDERED: ACETAMINOPHEN 325 MG TABLET PO PRN (07:12)
--- NOTE | 2017-04-29 07:31 | XRay Report ---
Portable chest Exam date: 04/29/2017 4:00 AM Indication: Shortness of breath, cough Comparison: Previous day at 1242 hours Findings: Cardiomediastinal contours are stable postoperatively with sternotomy wires and midline. Endotracheal and esophageal gastric tubes been removed. Remaining tubes and lines are unchanged in position. The lumbar anterocentral basilar atelectasis with small left pleural effusion, unchanged. No acute osseous abnormalities. Visualized upper abdomen demonstrates no acute pathology. Impression: Interval extubation and removal of the esophageal gastric tube, otherwise chest is unchanged in appearance since previous study PROCEDURE INTERPRETED AT [facility] DEPARTMENT OF RADIOLOGY Final Report Signed by: Howie Sapp
[2017-04-29] MEDS: CEFUROXIME INJ 1,500 MG in SODIUM CHLORIDE 0.9% 100 ML IV SCH (07:32)
--- NOTE | 2017-04-29 08:06 | EKG Report ---
Stationary ECG Study [facility] Test Date: 04/29/2017 8:03:31 AM Pat Name: SUKHDEV AGUDELO Department: Room: 104 Gender: M Director Mobile: Joe : 1965 Requested by: Althea Mueller Order Number: [id number] Reading MD: JOSÉ MIGUEL KAUR Intervals [place] Rate: 85 P: 76 MD: 152 QRS: 37 QRSD: 91 T: 48 QT: 350 QTc: 392 Interpretive Statements SINUS RHYTHM ACUTE PERICARDITIS Electronically Signed On 04-29-17 21:09:50 CDT by JOSÉ MIGUEL KAUR [email or web address]
[2017-04-29] MEDS: INSULIN REGULAR 100 UNIT/ML SUBCUT SCH ×3 (08:40→16:41)
--- NOTE | 2017-04-29 09:20 | Cardiology Progress Note ---
Assessment and Plan - Time spent with patient Time spent with patient: Less than 30 minutes (1) Coronary artery disease Status: Acute Assessment and plan: See plan of care listed below. Current Visit: Yes (2) Epigastric pain Status: Acute Assessment and plan: See plan of care listed below. Current Visit: Yes (3) Hypertension Status: Chronic Assessment and plan: See plan of care listed below. Current Visit: Yes (4) Diabetes mellitus Status: Chronic Assessment and plan: See plan of care listed below. Current Visit: Yes Qualifiers: Diabetes mellitus type: type 2 Diabetes mellitus complication status: with hyperglycemia Diabetes mellitus alf insulin use: without alf use Qualified Code(s): E11.65 - Type 2 diabetes mellitus with hyperglycemia (5) Hyperlipidemia Status: Chronic Assessment and plan: See plan of care listed below. Current Visit: Yes Qualifiers: Hyperlipidemia type: unspecified Qualified Code(s): E78.5 - Hyperlipidemia , unspecified (6) Family history of coronary artery disease in father Status: Chronic Assessment and plan: See plan of care listed below. Current Visit: Yes (7) Petit mal epilepsy Status: Chronic Assessment and plan: See plan of care listed below. Current Visit: Yes Cardiology - PN: Subj Interval history: Canteen Operator: Dr. Meredith PCP: Dr. Lindsey SUMMARY: Mr. Pedersen is a 51 y/o WM who presented to the emergency room on 2016 with complaints of intermittent chest pain/epigastric pain ongoing for 2 weeks suspicious for GI versus cardiac etiology. He underwent nuclear stress testing on 04/24/2017 was found to have a positive treadmill. He underwent left heart catheterization which revealed three-vessel coronary artery disease including an occluded proximal LAD with collaterals from the right coronary, critical stenosis of the ostium of the diagonal, critical stenosis of an obtuse marginal, and the mid right coronary artery. He was noted to have mild global left systolic dysfunction with EF 45-50%. He was recommended he proceed with coronary artery bypass grafting. On 04/28/17, he underwent coronary artery bypass grafting 4 with SINHA to LAD, saphenous vein graft to the posterior descending artery, saphenous vein graft to the first obtuse marginal artery, and saphenous vein graft to the ramus artery. 2016: Mr. Pedersen is seen on postop day #1 in the CVR. I was called earlier this morning about EKG changes showing mild diffuse ST elevations and AL interval depression. He has been running a low-grade fever and having chest pain unrelieved by morphine. He was started on Toradol which significantly improved his discomfort. We also started him on colchicine, Motrin, and Pepcid twice daily for treatment of possible pericarditis. He is not currently requiring any vasopressors. He has 2 mediastinal chest tubes in place and one left pleural chest tube in place. Bilateral lower extremity dressings are dry and intact sternal incision dressing is dry and intact. Blood pressure has been borderline hypotensive. Will resume beta bryant once blood pressure has improved. We will continue to monitor. ASSESSMENT/PLAN: 1. CORONARY ARTERY DISEASE: He is POD #1 from CABG 4. Left heart catheterization on 04/24/2017 revealed significant three-vessel coronary artery disease. 2. EPIGASTRIC PAIN: If he continues to have GI issues following CABG, he will need to be referred to a drafter topographical to further evaluate his postprandial epigastric pain, nausea, and weight loss. 3. HYPERTENSION: Currently well controlled. Will continue to monitor and adjust accordingly. 4. DIABETES: Poorly controlled. Hemoglobin A1c 8.5. He has been started on accuchecks is currently on insulin infusion. 5. HYPERLIPIDEMIA: Lipid panel revealed triglycerides 2250, cholesterol 298, LDL 93, HDL 29. Continue atorvastatin 40mg PO QHS. 6. FAMILY HISTORY OF CAD: He reports his father had CABG 3 at age 67 and subsequently from an SC at age 69. 7. SEIZURE DISORDER: Will continue seizure medication once okay with CV surgery. Patient reports he has had epilepsy since age 22. Exam (Progress Note) - Constitutional Vitals: Period Temp Pulse Resp BP Sys/Moreno Pulse Ox Last 24 Hr 97.4 F-101.2 F 62-97 10-23 91-160/37-80 93-100 Exam: General appearance: Appears well. Pleasant and cooperative. Overweight, no acute distress. Head exam: Present: normal inspection, normocephalic, atraumatic. Absent: hematoma, laceration Eye exam: Present: EOMI. Absent: conjunctival injection, nystagmus, periorbital swelling, scleral icterus, laceration to eyelids, jaundice Pupils: Present: PERRL. Absent: constricted, dilated, fixed, irregular, unequal ENT exam: Present: normal exam, normal external ear exam, mucous membranes moist. Right IJ triple-lumen central line intact. Neck exam: Present: normal inspection, midline trachea. Absent: masses, lymphadenopathy, tenderness, thyromegaly, carotid bruit Respiratory exam: Present: left pleural chest tube in place. Mediastinal chest tube in place 2. Absent: accessory muscle use, chest wall tenderness, rales, rhonchi, wheezing. Cardiovascular exam: Present: regular rate and rhythm. Friction rub present. Midsternal chest dressing dry and intact. Absent: gallop, JVD, murmur GI/Abdominal exam: Present: soft. Absent: distended, firm, hernia, mass, tenderness. Extremities exam: Present: No Clubbing, No Cyanosis, Upper Extr. Pulses 2+, Lower Extr. Pulses 2+, No edema. Bilateral lower extremity dressings dry and intact. Capillary refill less than 3 seconds. Musculoskeletal: Present: No Fluid Collection, No Pain, Normal Range of Motion Back exam: Present: Unable to assess due to habitus. Neurological exam: Present: awake, alert, oriented X3, Moves all extremities well without hemiparesis or paralysis. Grossly intact without resting or essential tremor Psychiatric exam: Present: normal affect, normal mood Skin exam: Present: normal color, warm, dry, intact. Absent: cyanosis, diaphoretic, rash, urticaria Result/EKG - Labs CBC & BMP: 04/29/17 03:20 04/29/17 03:20 Lab Results: I have reviewed the past 24 hour labs Labs: Laboratory Results - last 24 hr 04/27/17 04/28/17 04/28/17 04:04 09:35 10:05 WBC RBC Hgb Hct MCV MCH MCHC RDW Plt Count MPV Neut % (Auto) Lymph % (Auto) [place] % (Auto) Eos % (Auto) Baso % (Auto) Neut # (Auto) Lymph # (Auto) [place] # (Auto) Eos # (Auto) Baso # (Auto) Immature Gran % Nucleated RBC % Immature Gran # Nucleated RBCs # Immature Plt Fraction INR PT Patient/Control Mix Circ Anticoag PTT Patient Temperature 34 37 ABG pH ABG pH at Pt Temp 7.436 7.408 ABG pCO2 ABG pCO2 at Pt Temp 41.4 48.0 ABG pO2 ABG pO2 at Pt Temp 33.4 28.6 ABG HCO3 ABG Total CO2 ABG O2 Saturation ABG Base Excess ABG Sodium 133 L 132 L VBG pH 7.392 7.408 VBG pCO2 47.8 48.0 VBG pO2 41.2 H 28.6 VBG HCO3 27.1 29.6 H VBG Total CO2 26.3 31.1 VBG O2 Saturation 76.4 67.9 VBG Base Excess 3.5 4.1 H Hemoglobin 10.9 L D 12.5 L Hematocrit 33.7 L 37.0 L Potassium 3.5 5.3 H Glucose 393 H 350 H Ionized Calcium FiO2 80.00 80.00 Sodium Chloride Carbon Dioxide Anion Gap BUN Creatinine GFR Calculation BUN/Creatinine Ratio POC Glucose Calculated Osmolality Lactic Acid Calcium Venous Ioniz Calcium 1.07 L 1.03 Magnesium Hep Bs Antigen Hepatitis C Antibody HIV 1&2 Antigen & Ab Blood Type A POSITIVE Antibody Screen Negative Crossmatch See Detail 04/28/17 04/28/17 04/28/17 10:45 10:45 11:10 WBC RBC Hgb Hct MCV MCH MCHC RDW Plt Count 111 L MPV Neut % (Auto) Lymph % (Auto) [place] % (Auto) Eos % (Auto) Baso % (Auto) Neut # (Auto) Lymph # (Auto) [place] # (Auto) Eos # (Auto) Baso # (Auto) Immature Gran % Nucleated RBC % Immature Gran # Nucleated RBCs # Immature Plt Fraction INR PT Patient/Control Mix Circ Anticoag PTT Patient Temperature 37 37 ABG pH 7.405 7.424 ABG pH at Pt Temp 7.405 7.424 ABG pCO2 45.1 42.0 ABG pCO2 at Pt Temp 45.1 42.0 ABG pO2 65.3 L 117.0 H ABG pO2 at Pt Temp 65.3 117.0 ABG HCO3 27.0 H 26.9 H ABG Total CO2 25.2 24.4 ABG O2 Saturation 93.1 L 98.7 ABG Base Excess 3.0 H 2.8 H ABG Sodium 135 136 VBG pH VBG pCO2 VBG pO2 VBG HCO3 VBG Total CO2 VBG O2 Saturation VBG Base Excess Hemoglobin 11.4 L 11.7 L Hematocrit 35.1 L 36.0 L Potassium 3.8 5.8 H Glucose 303 H 290 H Ionized Calcium 1.40 1.17 L FiO2 Sodium Chloride Carbon Dioxide Anion Gap BUN Creatinine GFR Calculation BUN/Creatinine Ratio POC Glucose Calculated Osmolality Lactic Acid Calcium Venous Ioniz Calcium Magnesium Hep Bs Antigen Hepatitis C Antibody HIV 1&2 Antigen & Ab Blood Type Antibody Screen Crossmatch 04/28/17 04/28/17 04/28/17 11:11 12:09 12:23 WBC 10.7 D RBC 3.49 L D Hgb 10.8 L D Hct 29.1 L MCV 83.4 L MCH 31 MCHC 37.1 H RDW 12.3 Plt Count 123 L 120 L MPV 10.4 Neut % (Auto) 85.5 H Lymph % (Auto) 6.8 L [place] % (Auto) 5.8 Eos % (Auto) 0.8 Baso % (Auto) 0.2 Neut # (Auto) 9.2 H Lymph # (Auto) 0.7 L [place] # (Auto) 0.6 Eos # (Auto) 0.1 Baso # (Auto) 0.0 Immature Gran % 0.9 Nucleated RBC % 0.0 Immature Gran # 0.10 Nucleated RBCs # 0.00 Immature Plt Fraction 0.0 INR PT Patient/Control Mix Circ Anticoag PTT Patient Temperature ABG pH ABG pH at Pt Temp ABG pCO2 ABG pCO2 at Pt Temp ABG pO2 ABG pO2 at Pt Temp ABG HCO3 ABG Total CO2 ABG O2 Saturation ABG Base Excess ABG Sodium VBG pH VBG pCO2 VBG pO2 VBG HCO3 VBG Total CO2 VBG O2 Saturation VBG Base Excess Hemoglobin Hematocrit Potassium Glucose Ionized Calcium FiO2 Sodium Chloride Carbon Dioxide Anion Gap BUN Creatinine GFR Calculation BUN/Creatinine Ratio POC Glucose Calculated Osmolality Lactic Acid Calcium Venous Ioniz Calcium Magnesium Hep Bs Antigen Negative Hepatitis C Antibody Negative HIV 1&2 Antigen & Ab Nonreactive Blood Type Antibody Screen Crossmatch 04/28/17 04/28/17 04/28/17 12:23 12:27 12:27 WBC RBC Hgb Hct MCV MCH MCHC RDW Plt Count MPV Neut % (Auto) Lymph % (Auto) [place] % (Auto) Eos % (Auto) Baso % (Auto) Neut # (Auto) Lymph # (Auto) [place] # (Auto) Eos # (Auto) Baso # (Auto) Immature Gran % Nucleated RBC % Immature Gran # Nucleated RBCs # Immature Plt Fraction INR 1.2 PT Patient/Control Mix 12.6 Circ Anticoag PTT 27.1 Patient Temperature ABG pH 7.375 ABG pH at Pt Temp ABG pCO2 46.3 ABG pCO2 at Pt Temp ABG pO2 81.5 ABG pO2 at Pt Temp ABG HCO3 25.7 ABG Total CO2 24.5 ABG O2 Saturation 95.9 ABG Base Excess 1.5 ABG Sodium VBG pH VBG pCO2 VBG pO2 VBG HCO3 VBG Total CO2 VBG O2 Saturation VBG Base Excess Hemoglobin 10.8 L Hematocrit 33.2 L Potassium 3.6 3.5 Glucose 308 H 291 H Ionized Calcium FiO2 Sodium 138 Chloride 104 Carbon Dioxide 30 Anion Gap 7.6 BUN 11 Creatinine 0.80 GFR Calculation 136 BUN/Creatinine Ratio 13.00 POC Glucose Calculated Osmolality 285.7 Lactic Acid 0.8 Calcium 8.0 L Venous Ioniz Calcium Magnesium 1.5 L Hep Bs Antigen Hepatitis C Antibody HIV 1&2 Antigen & Ab Blood Type Antibody Screen Crossmatch 04/28/17 04/28/17 04/28/17 14:03 15:21 16:37 WBC RBC Hgb Hct MCV MCH MCHC RDW Plt Count MPV Neut % (Auto) Lymph % (Auto) [place] % (Auto) Eos % (Auto) Baso % (Auto) Neut # (Auto) Lymph # (Auto) [place] # (Auto) Eos # (Auto) Baso # (Auto) Immature Gran % Nucleated RBC % Immature Gran # Nucleated RBCs # Immature Plt Fraction INR PT Patient/Control Mix Circ Anticoag PTT Patient Temperature ABG pH 7.363 ABG pH at Pt Temp ABG pCO2 47.4 ABG pCO2 at Pt Temp ABG pO2 88.9 ABG pO2 at Pt Temp ABG HCO3 25.4 ABG Total CO2 24.5 ABG O2 Saturation 96.8 ABG Base Excess 1.1 ABG Sodium VBG pH VBG pCO2 VBG pO2 VBG HCO3 VBG Total CO2 VBG O2 Saturation VBG Base Excess Hemoglobin 10.3 L Hematocrit 31.9 L Potassium 3.9 Glucose 248 H Ionized Calcium FiO2 Sodium Chloride Carbon Dioxide Anion Gap BUN Creatinine GFR Calculation BUN/Creatinine Ratio POC Glucose 215 H 188 H Calculated Osmolality Lactic Acid Calcium Venous Ioniz Calcium Magnesium Hep Bs Antigen Hepatitis C Antibody HIV 1&2 Antigen & Ab Blood Type Antibody Screen Crossmatch 04/28/17 04/28/17 04/28/17 17:42 18:53 20:04 WBC RBC Hgb Hct MCV MCH MCHC RDW Plt Count MPV Neut % (Auto) Lymph % (Auto) [place] % (Auto) Eos % (Auto) Baso % (Auto) Neut # (Auto) Lymph # (Auto) [place] # (Auto) Eos # (Auto) Baso # (Auto) Immature Gran % Nucleated RBC % Immature Gran # Nucleated RBCs # Immature Plt Fraction INR PT Patient/Control Mix Circ Anticoag PTT Patient Temperature ABG pH ABG pH at Pt Temp ABG pCO2 ABG pCO2 at Pt Temp ABG pO2 ABG pO2 at Pt Temp ABG HCO3 ABG Total CO2 ABG O2 Saturation ABG Base Excess ABG Sodium VBG pH VBG pCO2 VBG pO2 VBG HCO3 VBG Total CO2 VBG O2 Saturation VBG Base Excess Hemoglobin Hematocrit Potassium Glucose Ionized Calcium FiO2 Sodium Chloride Carbon Dioxide Anion Gap BUN Creatinine GFR Calculation BUN/Creatinine Ratio POC Glucose 172 H 141 H 112 H Calculated Osmolality Lactic Acid Calcium Venous Ioniz Calcium Magnesium Hep Bs Antigen Hepatitis C Antibody HIV 1&2 Antigen & Ab Blood Type Antibody Screen Crossmatch 04/28/17 04/28/17 04/28/17 21:17 22:11 23:12 WBC RBC Hgb Hct MCV MCH MCHC RDW Plt Count MPV Neut % (Auto) Lymph % (Auto) [place] % (Auto) Eos % (Auto) Baso % (Auto) Neut # (Auto) Lymph # (Auto) [place] # (Auto) Eos # (Auto) Baso # (Auto) Immature Gran % Nucleated RBC % Immature Gran # Nucleated RBCs # Immature Plt Fraction INR PT Patient/Control Mix Circ Anticoag PTT Patient Temperature ABG pH ABG pH at Pt Temp ABG pCO2 ABG pCO2 at Pt Temp ABG pO2 ABG pO2 at Pt Temp ABG HCO3 ABG Total CO2 ABG O2 Saturation ABG Base Excess ABG Sodium VBG pH VBG pCO2 VBG pO2 VBG HCO3 VBG Total CO2 VBG O2 Saturation VBG Base Excess Hemoglobin Hematocrit Potassium Glucose Ionized Calcium FiO2 Sodium Chloride Carbon Dioxide Anion Gap BUN Creatinine GFR Calculation BUN/Creatinine Ratio POC Glucose 106 76 115 H Calculated Osmolality Lactic Acid Calcium Venous Ioniz Calcium Magnesium Hep Bs Antigen Hepatitis C Antibody HIV 1&2 Antigen & Ab Blood Type Antibody Screen Crossmatch 04/29/17 04/29/17 04/29/17 00:11 01:20 03:18 WBC RBC Hgb Hct MCV MCH MCHC RDW Plt Count MPV Neut % (Auto) Lymph % (Auto) [place] % (Auto) Eos % (Auto) Baso % (Auto) Neut # (Auto) Lymph # (Auto) [place] # (Auto) Eos # (Auto) Baso # (Auto) Immature Gran % Nucleated RBC % Immature Gran # Nucleated RBCs # Immature Plt Fraction INR PT Patient/Control Mix Circ Anticoag PTT Patient Temperature ABG pH ABG pH at Pt Temp ABG pCO2 ABG pCO2 at Pt Temp ABG pO2 ABG pO2 at Pt Temp ABG HCO3 ABG Total CO2 ABG O2 Saturation ABG Base Excess ABG Sodium VBG pH VBG pCO2 VBG pO2 VBG HCO3 VBG Total CO2 VBG O2 Saturation VBG Base Excess Hemoglobin Hematocrit Potassium Glucose Ionized Calcium FiO2 Sodium Chloride Carbon Dioxide Anion Gap BUN Creatinine GFR Calculation BUN/Creatinine Ratio POC Glucose 103 86 118 H Calculated Osmolality Lactic Acid Calcium Venous Ioniz Calcium Magnesium Hep Bs Antigen Hepatitis C Antibody HIV 1&2 Antigen & Ab Blood Type Antibody Screen Crossmatch 04/29/17 04/29/17 03:20 03:20 WBC 12.2 H RBC 2.92 L Hgb 9.0 L Hct 25.0 L MCV 85.6 L MCH 31 MCHC 36.0 RDW 12.8 Plt Count 126 L MPV 10.6 Neut % (Auto) 86.6 H Lymph % (Auto) 5.4 L [place] % (Auto) 7.5 Eos % (Auto) 0.1 Baso % (Auto) 0.1 Neut # (Auto) 10.6 H Lymph # (Auto) 0.7 L [place] # (Auto) 0.9 H Eos # (Auto) 0.0 Baso # (Auto) 0.0 Immature Gran % 0.3 Nucleated RBC % 0.0 Immature Gran # 0.04 Nucleated RBCs # 0.00 Immature Plt Fraction 0.0 INR PT Patient/Control Mix Circ Anticoag PTT Patient Temperature ABG pH ABG pH at Pt Temp ABG pCO2 ABG pCO2 at Pt Temp ABG pO2 ABG pO2 at Pt Temp ABG HCO3 ABG Total CO2 ABG O2 Saturation ABG Base Excess ABG Sodium VBG pH VBG pCO2 VBG pO2 VBG HCO3 VBG Total CO2 VBG O2 Saturation VBG Base Excess Hemoglobin Hematocrit Potassium 3.9 Glucose 116 H Ionized Calcium FiO2 Sodium 140 Chloride 105 Carbon Dioxide 28 Anion Gap 10.9 BUN 10 Creatinine 0.50 L GFR Calculation 165 BUN/Creatinine Ratio 20.00 POC Glucose Calculated Osmolality 278.4 Lactic Acid Calcium 7.3 L Venous Ioniz Calcium Magnesium 1.6 L Hep Bs Antigen Hepatitis C Antibody HIV 1&2 Antigen & Ab Blood Type Antibody Screen Crossmatch - EKG EKG results: interpreted by me, sinus rhythm Quality Measures - VTE Contraindication to Pharmacological VTE Prophylaxis: High Risk of Bleeding Specialty Discharge - Follow Up or Referrals
[2017-04-29] MEDS: OXcarbazepine 300 MG TABLET PO SCH (11:09)
[2017-04-29] MEDS: FUROSEMIDE 40 MG TABLET PO SCH (11:09)
[2017-04-29] MEDS: ASPIRIN EC 325 MG TABLET PO SCH (11:11)
[2017-04-29] MEDS: CLOPIDOGREL 75 MG TABLET PO SCH (11:11)
[2017-04-29] MEDS: COLCHICINE 0.6 MG TABLET PO SCH (11:11)
[2017-04-29] MEDS: FAMOTIDINE 20 MG TABLET PO SCH (11:12)
[2017-04-29] MEDS: ATORVASTATIN 40 MG TABLET PO SCH (11:12)
[2017-04-29] MEDS: CHLORHEXIDINE 0.12% ORAL RINSE 60 ML BOTTLE SWISH/SPIT SCH (11:13)
[2017-04-29] MEDS: MORPHINE 10 MG/1 ML VIAL IV PRN (12:28)
[2017-04-29] MEDS: IBUPROFEN 800 MG TABLET PO SCH (12:49)
[2017-04-29] MEDS: PHENYLEPHRINE DRIP 40 MG/250 ML PREMIX IV SCH (14:00)
--- NOTE | 2017-04-29 16:43 | Cardiothoracic Progress Note ---
Assessment and Plan (1) NSTEMI (non-ST elevated myocardial infarction) Status: Acute Assessment and plan: Postoperative day 1 status post CABG 4. The patient has been doing very well. He was extubated within 4 hours after surgery. He is hemodynamically stable without any problems. He had some diffuse ST changes pointing out to pericarditis for which he started on colchicine and NSAIDs. Since then has been very comfortable. He got out of bed to chair. Remove the [place], fluids to 50 cc/h, start aspirin, Plavix, statins, Lasix. Transfer to telemetry. Current Visit: Yes Exam (Progress Note) - Constitutional Vitals: Period Temp Pulse Resp BP Sys/Moreno Pulse Ox Last 24 Hr 98.7 F-101.2 F 77-97 10-23 91-160/37-80 93-96 Result/EKG - Labs CBC & BMP: 04/29/17 03:20 04/29/17 03:20 Labs: Laboratory Results - last 24 hr 04/27/17 04/28/17 04/28/17 04:04 15:21 16:37 WBC RBC Hgb Hct MCV MCH MCHC RDW Plt Count MPV Neut % (Auto) Lymph % (Auto) [place] % (Auto) Eos % (Auto) Baso % (Auto) Neut # (Auto) Lymph # (Auto) [place] # (Auto) Eos # (Auto) Baso # (Auto) Immature Gran % Nucleated RBC % Immature Gran # Nucleated RBCs # Immature Plt Fraction Sodium Potassium Chloride Carbon Dioxide Anion Gap BUN Creatinine GFR Calculation BUN/Creatinine Ratio Glucose POC Glucose 215 H 188 H Calculated Osmolality Calcium Magnesium Crossmatch See Detail 04/28/17 04/28/17 04/28/17 17:42 18:53 20:04 WBC RBC Hgb Hct MCV MCH MCHC RDW Plt Count MPV Neut % (Auto) Lymph % (Auto) [place] % (Auto) Eos % (Auto) Baso % (Auto) Neut # (Auto) Lymph # (Auto) [place] # (Auto) Eos # (Auto) Baso # (Auto) Immature Gran % Nucleated RBC % Immature Gran # Nucleated RBCs # Immature Plt Fraction Sodium Potassium Chloride Carbon Dioxide Anion Gap BUN Creatinine GFR Calculation BUN/Creatinine Ratio Glucose POC Glucose 172 H 141 H 112 H Calculated Osmolality Calcium Magnesium Crossmatch 04/28/17 04/28/17 04/28/17 21:17 22:11 23:12 WBC RBC Hgb Hct MCV MCH MCHC RDW Plt Count MPV Neut % (Auto) Lymph % (Auto) [place] % (Auto) Eos % (Auto) Baso % (Auto) Neut # (Auto) Lymph # (Auto) [place] # (Auto) Eos # (Auto) Baso # (Auto) Immature Gran % Nucleated RBC % Immature Gran # Nucleated RBCs # Immature Plt Fraction Sodium Potassium Chloride Carbon Dioxide Anion Gap BUN Creatinine GFR Calculation BUN/Creatinine Ratio Glucose POC Glucose 106 76 115 H Calculated Osmolality Calcium Magnesium Crossmatch 04/29/17 04/29/17 04/29/17 00:11 01:20 03:18 WBC RBC Hgb Hct MCV MCH MCHC RDW Plt Count MPV Neut % (Auto) Lymph % (Auto) [place] % (Auto) Eos % (Auto) Baso % (Auto) Neut # (Auto) Lymph # (Auto) [place] # (Auto) Eos # (Auto) Baso # (Auto) Immature Gran % Nucleated RBC % Immature Gran # Nucleated RBCs # Immature Plt Fraction Sodium Potassium Chloride Carbon Dioxide Anion Gap BUN Creatinine GFR Calculation BUN/Creatinine Ratio Glucose POC Glucose 103 86 118 H Calculated Osmolality Calcium Magnesium Crossmatch 04/29/17 04/29/17 03:20 03:20 WBC 12.2 H RBC 2.92 L Hgb 9.0 L Hct 25.0 L MCV 85.6 L MCH 31 MCHC 36.0 RDW 12.8 Plt Count 126 L MPV 10.6 Neut % (Auto) 86.6 H Lymph % (Auto) 5.4 L [place] % (Auto) 7.5 Eos % (Auto) 0.1 Baso % (Auto) 0.1 Neut # (Auto) 10.6 H Lymph # (Auto) 0.7 L [place] # (Auto) 0.9 H Eos # (Auto) 0.0 Baso # (Auto) 0.0 Immature Gran % 0.3 Nucleated RBC % 0.0 Immature Gran # 0.04 Nucleated RBCs # 0.00 Immature Plt Fraction 0.0 Sodium 140 Potassium 3.9 Chloride 105 Carbon Dioxide 28 Anion Gap 10.9 BUN 10 Creatinine 0.50 L GFR Calculation 165 BUN/Creatinine Ratio 20.00 Glucose 116 H POC Glucose Calculated Osmolality 278.4 Calcium 7.3 L Magnesium 1.6 L Crossmatch Quality Measures - VTE Contraindication to Pharmacological VTE Prophylaxis: High Risk of Bleeding Specialty Discharge - Follow Up or Referrals
[2017-04-29] MEDS: MORPHINE 2 MG/1 ML SYRINGE IV PRN ×2 (17:45→19:35)
[2017-04-29] MEDS: ALBUTEROL/IPRATROPIUM 3 ML NEB RESP TX SCH ×2 (19:00→23:56)
[2017-04-30] MEDS: MORPHINE 2 MG/1 ML SYRINGE IV PRN ×3 (00:36→22:08)
[2017-04-30] MEDS: CEFUROXIME INJ 1,500 MG in SODIUM CHLORIDE 0.9% 100 ML IV SCH (00:40)
[2017-04-30] MEDS: ATORVASTATIN 40 MG TABLET PO SCH ×2 (00:44→20:55)
[2017-04-30] MEDS: INSULIN REGULAR 100 UNIT/ML SUBCUT SCH ×6 (00:44→20:54)
[2017-04-30] MEDS: FAMOTIDINE 20 MG TABLET PO SCH ×3 (00:44→20:57)
[2017-04-30] MEDS: CHLORHEXIDINE 0.12% ORAL RINSE 60 ML BOTTLE SWISH/SPIT SCH ×3 (00:44→22:08)
[2017-04-30] MEDS: METOPROLOL TARTRATE 25 MG TABLET PO SCH ×3 (00:44→20:57)
[2017-04-30] MEDS: COLCHICINE 0.6 MG TABLET PO SCH ×3 (00:44→20:55)
[2017-04-30] MEDS: IBUPROFEN 800 MG TABLET PO SCH ×3 (00:44→20:57)
[2017-04-30] MEDS: OXcarbazepine 300 MG TABLET PO SCH ×3 (00:45→20:56)
[2017-04-30] MEDS: SODIUM CHLORIDE 0.45% 1,000 ML IV SCH ×2 (00:46→04:01)
[2017-04-30] MEDS: KETOROLAC 30 MG/1 ML VIAL IV SCH ×4 (01:33→20:58)
[2017-04-30] MEDS: ALBUTEROL/IPRATROPIUM 3 ML NEB RESP TX SCH ×5 (03:01→20:24)
[2017-04-30 05:38] LABS: Calcium 7.8 MG/DL (8.5-10.1); Magnesium 2.1 MG/DL (1.8-2.4); Osmolality,Calculated 286.3 MOS/KG (273-304)
[2017-04-30 05:40] LABS: Basophils % 0.3 % (0.0-0.8); Eosinophils # 0.1 10*3/uL (0.0-0.87); Eosinophils % 0.9 % (0.00-10.9); Hematocrit 24.5 VOL% (42.0-52.0); Hemoglobin 8.6 GM/DL (14.0-18.0); Immature Granulocytes % 0.6 %; Immature Granulocytes Absolute 0.07 #; Lymphocytes # 0.9 10*3/uL (1.4-4.0); Lymphocytes % 7.4 % (21.2-54.2); Mean Corpuscular HGB Conc 35.1 GM/DL (32-36); Mean Corpuscular Hemoglobin 31 PG (27-34); Mean Corpuscular Volume 87.8 FL (87-102); Mean Platelet Volume 10.9 FL (9.6-12.0); Monocytes % 8.6 % (1.7-12.7); Neutrophils # 9.7 10*3/uL (1.4-7.4); Neutrophils % 82.2 % (38.7-73.9); Platelet Count 134 T/CUMM (130-400); Red Blood Count 2.79 MC/CUMM (3.8-5.5); Red Cell Distribution Width 12.7 % (9.3-17.3); White Blood Count 11.8 T/CUMM (4-12)
--- NOTE | 2017-04-30 09:41 | XRay Report ---
XR chest 1V portable Indication: Pneumothorax Comparison: 29 April 2017 Findings: The heart and mediastinum are stable in size and configuration. The lines and tubes are unchanged in position. The pulmonary vascularity is normal in caliber. Air densities in the left lung are similar to previous exam. No other lung infiltrates, effusions, pneumothorax or other abnormality is demonstrated. Impression: No significant change PROCEDURE INTERPRETED AT [facility] DEPARTMENT OF RADIOLOGY Final Report Signed by: Dr. Lazarus Abdi
[2017-04-30] MEDS: POTASSIUM CHLORIDE RIDER 20 MEQ in PREMIX 1 EACH IV PRN ×2 (10:00→18:49)
[2017-04-30] MEDS: ASPIRIN EC 325 MG TABLET PO SCH (10:20)
[2017-04-30] MEDS: CLOPIDOGREL 75 MG TABLET PO SCH (10:20)
[2017-04-30] MEDS: FUROSEMIDE 40 MG TABLET PO SCH (10:20)
--- NOTE | 2017-04-30 14:17 | Cardiology Progress Note ---
Assessment and Plan - Time spent with patient Time spent with patient: Less than 30 minutes (1) Coronary artery disease Status: Acute Assessment and plan: See plan of care listed below. Current Visit: Yes (2) Epigastric pain Status: Acute Assessment and plan: See plan of care listed below. Current Visit: Yes (3) Hypertension Status: Chronic Assessment and plan: See plan of care listed below. Current Visit: Yes (4) Diabetes mellitus Status: Chronic Assessment and plan: See plan of care listed below. Current Visit: Yes Qualifiers: Diabetes mellitus type: type 2 Diabetes mellitus complication status: with hyperglycemia Diabetes mellitus vermin exterminator insulin use: without vermin exterminator use Qualified Code(s): E11.65 - Type 2 diabetes mellitus with hyperglycemia (5) Hyperlipidemia Status: Chronic Assessment and plan: See plan of care listed below. Current Visit: Yes Qualifiers: Hyperlipidemia type: unspecified Qualified Code(s): E78.5 - Hyperlipidemia , unspecified (6) Family history of coronary artery disease in father Status: Chronic Assessment and plan: See plan of care listed below. Current Visit: Yes (7) Petit mal epilepsy Status: Chronic Assessment and plan: See plan of care listed below. Current Visit: Yes Cardiology - PN: Subj Interval history: Internet Marketer: Dr. Meredith PCP: Dr. Lindsey SUMMARY: Mr. Pedersen is a 51 y/o WM who presented to the emergency room on 2016 with complaints of intermittent chest pain/epigastric pain ongoing for 2 weeks suspicious for GI versus cardiac etiology. He underwent nuclear stress testing on 04/24/2017 was found to have a positive treadmill. He underwent left heart catheterization which revealed three-vessel coronary artery disease including an occluded proximal LAD with collaterals from the right coronary, critical stenosis of the ostium of the diagonal, critical stenosis of an obtuse marginal, and the mid right coronary artery. He was noted to have mild global left systolic dysfunction with EF 45-50%. He was recommended he proceed with coronary artery bypass grafting. On 04/28/17, he underwent coronary artery bypass grafting 4 with SINHA to LAD, saphenous vein graft to the posterior descending artery, saphenous vein graft to the first obtuse marginal artery, and saphenous vein graft to the ramus artery. Post op day #1, Mr. Pedersen had EKG changes showing mild diffuse ST elevations and OK interval depression consistent with pericarditis. He was also running a low grade fever and having chest pain unrelieved by morphine. He was started on colchicine and NSAIDs. 2016: Mr. Pedersen is seen on postop day #2 on the telemetry unit. He is doing well. His chest tubes remain in place at the time of exam but will likely be discontinued soon. Blood pressure has normalized and we have resumed beta blockade. Bilateral lower extremity dressings are dry and intact sternal incision dressing is dry and intact. Once chest tubes have been removed, he will begin working more actively with physical therapy. We will continue to monitor. ASSESSMENT/PLAN: 1. CORONARY ARTERY DISEASE: He is POD #2 from CABG 4. Left heart catheterization on 04/24/2017 revealed significant three-vessel coronary artery disease. 2. EPIGASTRIC PAIN: If he continues to have GI issues following CABG, he will need to be referred to a outpatient physical therapist assistant to further evaluate his postprandial epigastric pain, nausea, and weight loss. 3. HYPERTENSION: Currently well controlled. Will continue to monitor and adjust accordingly. 4. DIABETES: Poorly controlled. Hemoglobin A1c 8.5. He has been started on accuchecks is currently on sliding scale insulin. 5. HYPERLIPIDEMIA: Lipid panel revealed triglycerides 2250, cholesterol 298, LDL 93, HDL 29. Continue atorvastatin 40mg PO QHS. 6. FAMILY HISTORY OF CAD: He reports his father had CABG 3 at age 67 and subsequently from an HI at age 69. 7. SEIZURE DISORDER: Will continue seizure medication once okay with CV surgery. Patient reports he has had epilepsy since age 22. Exam (Progress Note) - Constitutional Vitals: Period Temp Pulse Resp BP Sys/Moreno Pulse Ox Last 24 Hr 97.1 F-100.1 F 75-102 14-22 104-146/61-83 90-100 Exam: General appearance: Appears well. Pleasant and cooperative. Overweight, no acute distress. Head exam: Present: normal inspection, normocephalic, atraumatic. Absent: hematoma, laceration Eye exam: Present: EOMI. Absent: conjunctival injection, nystagmus, periorbital swelling, scleral icterus, laceration to eyelids, jaundice Pupils: Present: PERRL. Absent: constricted, dilated, fixed, irregular, unequal ENT exam: Present: normal exam, normal external ear exam, mucous membranes moist. Right IJ triple-lumen central line intact. Neck exam: Present: normal inspection, midline trachea. Absent: masses, lymphadenopathy, tenderness, thyromegaly, carotid bruit Respiratory exam: Present: left pleural chest tube in place. Mediastinal chest tube in place 2. Absent: accessory muscle use, chest wall tenderness, rales, rhonchi, wheezing. Cardiovascular exam: Present: regular rate and rhythm. Friction rub present. Midsternal chest dressing dry and intact. Absent: gallop, JVD, murmur GI/Abdominal exam: Present: soft. Absent: distended, firm, hernia, mass, tenderness. Extremities exam: Present: No Clubbing, No Cyanosis, Upper Extr. Pulses 2+, Lower Extr. Pulses 2+, No edema. Bilateral lower extremity dressings dry and intact. Capillary refill less than 3 seconds. Musculoskeletal: Present: No Fluid Collection, No Pain, Normal Range of Motion Back exam: Present: Unable to assess due to habitus. Neurological exam: Present: awake, alert, oriented X3, Moves all extremities well without hemiparesis or paralysis. Grossly intact without resting or essential tremor Psychiatric exam: Present: normal affect, normal mood Skin exam: Present: normal color, warm, dry, intact. Absent: cyanosis, diaphoretic, rash, urticaria Result/EKG - Labs CBC & BMP: 04/30/17 04:35 04/30/17 04:35 Lab Results: I have reviewed the past 24 hour labs Labs: Laboratory Results - last 24 hr 04/27/17 04/29/17 04/29/17 04:04 05:33 06:21 WBC RBC Hgb Hct MCV MCH MCHC RDW Plt Count MPV Neut % (Auto) Lymph % (Auto) [place] % (Auto) Eos % (Auto) Baso % (Auto) Neut # (Auto) Lymph # (Auto) [place] # (Auto) Eos # (Auto) Baso # (Auto) Immature Gran % Nucleated RBC % Immature Gran # Nucleated RBCs # Immature Plt Fraction Sodium Potassium Chloride Carbon Dioxide Anion Gap BUN Creatinine GFR Calculation BUN/Creatinine Ratio Glucose POC Glucose 149 H 123 H Calculated Osmolality Calcium Magnesium Crossmatch See Detail 04/29/17 04/29/17 04/29/17 08:32 13:56 16:30 WBC RBC Hgb Hct MCV MCH MCHC RDW Plt Count MPV Neut % (Auto) Lymph % (Auto) [place] % (Auto) Eos % (Auto) Baso % (Auto) Neut # (Auto) Lymph # (Auto) [place] # (Auto) Eos # (Auto) Baso # (Auto) Immature Gran % Nucleated RBC % Immature Gran # Nucleated RBCs # Immature Plt Fraction Sodium Potassium Chloride Carbon Dioxide Anion Gap BUN Creatinine GFR Calculation BUN/Creatinine Ratio Glucose POC Glucose 168 H 189 H 196 H Calculated Osmolality Calcium Magnesium Crossmatch 04/30/17 04/30/17 04/30/17 00:30 04:35 04:35 WBC 11.8 RBC 2.79 L Hgb 8.6 L Hct 24.5 L MCV 87.8 MCH 31 MCHC 35.1 RDW 12.7 Plt Count 134 MPV 10.9 Neut % (Auto) 82.2 H Lymph % (Auto) 7.4 L [place] % (Auto) 8.6 Eos % (Auto) 0.9 Baso % (Auto) 0.3 Neut # (Auto) 9.7 H Lymph # (Auto) 0.9 L [place] # (Auto) 1.0 H Eos # (Auto) 0.1 Baso # (Auto) 0.0 Immature Gran % 0.6 Nucleated RBC % 0.0 Immature Gran # 0.07 Nucleated RBCs # 0.00 Immature Plt Fraction 0.0 Sodium 141 Potassium 4.0 Chloride 103 Carbon Dioxide 32 Anion Gap 10.0 BUN 13 Creatinine 0.70 GFR Calculation 144 BUN/Creatinine Ratio 18.00 Glucose 205 H POC Glucose 237 H Calculated Osmolality 286.3 Calcium 7.8 L Magnesium 2.1 Crossmatch 04/30/17 04/30/17 07:56 12:04 WBC RBC Hgb Hct MCV MCH MCHC RDW Plt Count MPV Neut % (Auto) Lymph % (Auto) [place] % (Auto) Eos % (Auto) Baso % (Auto) Neut # (Auto) Lymph # (Auto) [place] # (Auto) Eos # (Auto) Baso # (Auto) Immature Gran % Nucleated RBC % Immature Gran # Nucleated RBCs # Immature Plt Fraction Sodium Potassium Chloride Carbon Dioxide Anion Gap BUN Creatinine GFR Calculation BUN/Creatinine Ratio Glucose POC Glucose 229 H 330 H Calculated Osmolality Calcium Magnesium Crossmatch - EKG EKG results: interpreted by me, sinus rhythm Quality Measures - VTE Contraindication to Pharmacological VTE Prophylaxis: High Risk of Bleeding Specialty Discharge - Follow Up or Referrals
--- NOTE | 2017-04-30 14:28 | XRay Report ---
XR chest 1V portable Indication: Chest tube removal Comparison: 30 April 2017 at 5:47 AM Findings: The heart and mediastinum are similar in size and configuration. Left-sided chest tube is been removed. The right internal jugular catheters unchanged in position. The pulmonary vascularity is normal in caliber. Small amount of linear densities present left lung similar to previous exam. No other lung infiltrates, effusions, pneumothorax or other abnormality is demonstrated. Impression: Removal of chest tube. No other significant changes. PROCEDURE INTERPRETED AT [facility] DEPARTMENT OF RADIOLOGY Final Report Signed by: Dr. Lazarus Abdi
--- NOTE | 2017-04-30 15:01 | Cardiothoracic Progress Note ---
Assessment and Plan (1) NSTEMI (non-ST elevated myocardial infarction) Status: Acute Assessment and plan: Postoperative day 2 status post CABG 4. The patient has been doing very well. Ambulate. Remove chest tubes and follow-up chest x-ray looked good. The patient has been doing very well currently without any complaints. Increase physical activity. Current Visit: Yes Exam (Progress Note) - Constitutional Vitals: Period Temp Pulse Resp BP Sys/Moreno Pulse Ox Last 24 Hr 97.1 F-100.1 F 75-102 14-22 104-146/61-83 90-100 Result/EKG - Labs CBC & BMP: 04/30/17 04:35 04/30/17 04:35 Labs: Laboratory Results - last 24 hr 04/27/17 04/29/17 04/29/17 04:04 05:33 06:21 WBC RBC Hgb Hct MCV MCH MCHC RDW Plt Count MPV Neut % (Auto) Lymph % (Auto) [place] % (Auto) Eos % (Auto) Baso % (Auto) Neut # (Auto) Lymph # (Auto) [place] # (Auto) Eos # (Auto) Baso # (Auto) Immature Gran % Nucleated RBC % Immature Gran # Nucleated RBCs # Immature Plt Fraction Sodium Potassium Chloride Carbon Dioxide Anion Gap BUN Creatinine GFR Calculation BUN/Creatinine Ratio Glucose POC Glucose 149 H 123 H Calculated Osmolality Calcium Magnesium Crossmatch See Detail 04/29/17 04/29/17 04/29/17 08:32 13:56 16:30 WBC RBC Hgb Hct MCV MCH MCHC RDW Plt Count MPV Neut % (Auto) Lymph % (Auto) [place] % (Auto) Eos % (Auto) Baso % (Auto) Neut # (Auto) Lymph # (Auto) [place] # (Auto) Eos # (Auto) Baso # (Auto) Immature Gran % Nucleated RBC % Immature Gran # Nucleated RBCs # Immature Plt Fraction Sodium Potassium Chloride Carbon Dioxide Anion Gap BUN Creatinine GFR Calculation BUN/Creatinine Ratio Glucose POC Glucose 168 H 189 H 196 H Calculated Osmolality Calcium Magnesium Crossmatch 04/30/17 04/30/17 04/30/17 00:30 04:35 04:35 WBC 11.8 RBC 2.79 L Hgb 8.6 L Hct 24.5 L MCV 87.8 MCH 31 MCHC 35.1 RDW 12.7 Plt Count 134 MPV 10.9 Neut % (Auto) 82.2 H Lymph % (Auto) 7.4 L [place] % (Auto) 8.6 Eos % (Auto) 0.9 Baso % (Auto) 0.3 Neut # (Auto) 9.7 H Lymph # (Auto) 0.9 L [place] # (Auto) 1.0 H Eos # (Auto) 0.1 Baso # (Auto) 0.0 Immature Gran % 0.6 Nucleated RBC % 0.0 Immature Gran # 0.07 Nucleated RBCs # 0.00 Immature Plt Fraction 0.0 Sodium 141 Potassium 4.0 Chloride 103 Carbon Dioxide 32 Anion Gap 10.0 BUN 13 Creatinine 0.70 GFR Calculation 144 BUN/Creatinine Ratio 18.00 Glucose 205 H POC Glucose 237 H Calculated Osmolality 286.3 Calcium 7.8 L Magnesium 2.1 Crossmatch 04/30/17 04/30/17 07:56 12:04 WBC RBC Hgb Hct MCV MCH MCHC RDW Plt Count MPV Neut % (Auto) Lymph % (Auto) [place] % (Auto) Eos % (Auto) Baso % (Auto) Neut # (Auto) Lymph # (Auto) [place] # (Auto) Eos # (Auto) Baso # (Auto) Immature Gran % Nucleated RBC % Immature Gran # Nucleated RBCs # Immature Plt Fraction Sodium Potassium Chloride Carbon Dioxide Anion Gap BUN Creatinine GFR Calculation BUN/Creatinine Ratio Glucose POC Glucose 229 H 330 H Calculated Osmolality Calcium Magnesium Crossmatch Quality Measures - VTE Contraindication to Pharmacological VTE Prophylaxis: High Risk of Bleeding Specialty Discharge - Follow Up or Referrals
--- NOTE | 2017-04-30 15:56 | Event Note ---
Interviewed and examined the patient personally. Discussed findings with the nurse practitioner. I agree with the assessment and plan, with additions as below. 51-year-old male, admitted with unstable angina, LHC confirmed 3 VD, mildly elevated EDP. 04/28: CABG. he is already extubated and is hemodynamically stable. -Pericarditis chest pain, with drop and EKG changes. Colchicine was started. Pain improved -Continue aspirin, statin. -Increase metoprolol to 25 mg twice daily.
[2017-05-01] MEDS: ALBUTEROL/IPRATROPIUM 3 ML NEB RESP TX SCH ×7 (00:10→23:46)
[2017-05-01] MEDS: INSULIN REGULAR 100 UNIT/ML SUBCUT SCH ×6 (01:06→20:53)
[2017-05-01] MEDS: KETOROLAC 30 MG/1 ML VIAL IV SCH ×4 (01:08→20:53)
[2017-05-01 03:40] LABS: Calcium 7.8 MG/DL (8.5-10.1); Magnesium 1.8 MG/DL (1.8-2.4); Osmolality,Calculated 287.5 MOS/KG (273-304); Potassium 3.7 MMOL/L (3.5-5.1)
[2017-05-01 07:15] LABS: Basophils % 0.3 % (0.0-0.8); Eosinophils # 0.2 10*3/uL (0.0-0.87); Eosinophils % 2.1 % (0.00-10.9); Hematocrit 23.6 VOL% (42.0-52.0); Hemoglobin 8.2 GM/DL (14.0-18.0); Immature Granulocytes % 0.6 %; Immature Granulocytes Absolute 0.05 #; Lymphocytes # 1.2 10*3/uL (1.4-4.0); Lymphocytes % 13.9 % (21.2-54.2); Mean Corpuscular HGB Conc 34.7 GM/DL (32-36); Mean Corpuscular Hemoglobin 31 PG (27-34); Mean Corpuscular Volume 88.1 FL (87-102); Mean Platelet Volume 11.1 FL (9.6-12.0); Monocytes # 0.8 10*3/uL (0.11-0.8); Monocytes % 9.3 % (1.7-12.7); Neutrophils # 6.4 10*3/uL (1.4-7.4); Neutrophils % 73.8 % (38.7-73.9); Platelet Count 156 T/CUMM (130-400); Red Blood Count 2.68 MC/CUMM (3.8-5.5); Red Cell Distribution Width 12.7 % (9.3-17.3); White Blood Count 8.6 T/CUMM (4-12)
--- NOTE | 2017-05-01 08:26 | XRay Report ---
Portable chest Exam date: 05/01/2017 555 AM Indication: Shortness of breath, cough Comparison: April 30, 2017 at 2 1 hours Findings: Cardiomediastinal contours are stable with no change in line placement. Low lung volumes with central and bibasilar stranding opacities, likely atelectasis. No acute osseous abnormalities. Visualized upper abdomen demonstrates no acute pathology. Impression: Stable chest PROCEDURE INTERPRETED AT [facility] DEPARTMENT OF RADIOLOGY Final Report Signed by: Howie Sapp
[2017-05-01] MEDS: CLOPIDOGREL 75 MG TABLET PO SCH (09:19)
[2017-05-01] MEDS: IBUPROFEN 800 MG TABLET PO SCH ×2 (09:19→20:53)
[2017-05-01] MEDS: OXcarbazepine 300 MG TABLET PO SCH ×2 (09:20→20:52)
[2017-05-01] MEDS: FAMOTIDINE 20 MG TABLET PO SCH (09:21)
[2017-05-01] MEDS: ASPIRIN EC 325 MG TABLET PO SCH (09:21)
[2017-05-01] MEDS: METOPROLOL TARTRATE 25 MG TABLET PO SCH ×2 (09:21→20:52)
[2017-05-01] MEDS: FUROSEMIDE 40 MG TABLET PO SCH (09:21)
[2017-05-01] MEDS: COLCHICINE 0.6 MG TABLET PO SCH ×2 (09:21→20:52)
[2017-05-01] MEDS: CHLORHEXIDINE 0.12% ORAL RINSE 60 ML BOTTLE SWISH/SPIT SCH ×2 (09:47→20:53)
[2017-05-01] MEDS: MAGNESIUM SULF RIDER 4 GM in PREMIX 1 EACH IV PRN (10:05)
--- NOTE | 2017-05-01 13:05 | Cardiology Progress Note ---
Assessment and Plan - Time spent with patient Time spent with patient: Less than 30 minutes (1) Coronary artery disease Status: Acute Assessment and plan: See plan of care listed below. Current Visit: Yes (2) Epigastric pain Status: Acute Assessment and plan: See plan of care listed below. Current Visit: Yes (3) Hypertension Status: Chronic Assessment and plan: See plan of care listed below. Current Visit: Yes (4) Diabetes mellitus Status: Chronic Assessment and plan: See plan of care listed below. Current Visit: Yes Qualifiers: Diabetes mellitus type: type 2 Diabetes mellitus complication status: with hyperglycemia Diabetes mellitus oysterman insulin use: without oysterman use Qualified Code(s): E11.65 - Type 2 diabetes mellitus with hyperglycemia (5) Hyperlipidemia Status: Chronic Assessment and plan: See plan of care listed below. Current Visit: Yes Qualifiers: Hyperlipidemia type: unspecified Qualified Code(s): E78.5 - Hyperlipidemia , unspecified (6) Family history of coronary artery disease in father Status: Chronic Assessment and plan: See plan of care listed below. Current Visit: Yes (7) Petit mal epilepsy Status: Chronic Assessment and plan: See plan of care listed below. Current Visit: Yes Cardiology - PN: Subj Interval history: Service Supervisor: Dr. Meredith PCP: Dr. Lindsey SUMMARY: Mr. Pedersen is a 51 y/o WM who presented to the emergency room on 2016 with complaints of intermittent chest pain/epigastric pain ongoing for 2 weeks suspicious for GI versus cardiac etiology. He underwent nuclear stress testing on 04/24/2017 was found to have a positive treadmill. He underwent left heart catheterization which revealed three-vessel coronary artery disease including an occluded proximal LAD with collaterals from the right coronary, critical stenosis of the ostium of the diagonal, critical stenosis of an obtuse marginal, and the mid right coronary artery. He was noted to have mild global left systolic dysfunction with EF 45-50%. He was recommended he proceed with coronary artery bypass grafting. On 04/28/17, he underwent coronary artery bypass grafting 4 with SINHA to LAD, saphenous vein graft to the posterior descending artery, saphenous vein graft to the first obtuse marginal artery, and saphenous vein graft to the ramus artery. Post op day #1, Mr. Pedersen had EKG changes showing mild diffuse ST elevations and TN interval depression consistent with pericarditis. He was also running a low grade fever and having chest pain unrelieved by morphine. He was started on colchicine and NSAIDs. 2016: Mr. Pedersen is seen on postop day #3 on the telemetry unit. He is doing well. His chest tubes have been discontinued and he has been up ambulating in the [place] today. Bilateral lower extremity incisions are open to air with small dressings near the ankle. Incisions are well approximated and look good. Continue current plan of care with aspirin, statin, plavix, beta bryant. Pain is improved with addition of NSAIDs and colchicine. We will continue to monitor. It's possible he may go home as early as tomorrow. ASSESSMENT/PLAN: 1. CORONARY ARTERY DISEASE: He is POD #3 from CABG 4. Left heart catheterization on 04/24/2017 revealed significant three-vessel coronary artery disease. 2. EPIGASTRIC PAIN: If he continues to have GI issues following CABG, he will need to be referred to a doughnut dough mixer to further evaluate his postprandial epigastric pain, nausea, and weight loss. 3. HYPERTENSION: Currently well controlled. Will continue to monitor and adjust accordingly. 4. DIABETES: Poorly controlled. Hemoglobin A1c 8.5. He has been started on accuchecks is currently on sliding scale insulin. 5. HYPERLIPIDEMIA: Lipid panel revealed triglycerides 2250, cholesterol 298, LDL 93, HDL 29. Continue atorvastatin 40mg PO QHS. 6. FAMILY HISTORY OF CAD: He reports his father had CABG 3 at age 67 and subsequently from an NE at age 69. 7. SEIZURE DISORDER: Will continue seizure medication once okay with CV surgery. Patient reports he has had epilepsy since age 22. Exam (Progress Note) - Constitutional Vitals: Period Temp Pulse Resp BP Sys/Moreno Pulse Ox Last 24 Hr 97.5 F-99.6 F 69-92 16-20 110-141/60-76 90-99 Exam: General appearance: Appears well. Pleasant and cooperative. Overweight, no acute distress. Head exam: Present: normal inspection, normocephalic, atraumatic. Absent: hematoma, laceration Eye exam: Present: EOMI. Absent: conjunctival injection, nystagmus, periorbital swelling, scleral icterus, laceration to eyelids, jaundice Pupils: Present: PERRL. Absent: constricted, dilated, fixed, irregular, unequal ENT exam: Present: normal exam, normal external ear exam, mucous membranes moist. Right IJ triple-lumen central line intact. Neck exam: Present: normal inspection, midline trachea. Absent: masses, lymphadenopathy, tenderness, thyromegaly, carotid bruit Respiratory exam: Present: Clear to auscultation bilaterally. Absent: accessory muscle use, chest wall tenderness, rales, rhonchi, wheezing. Cardiovascular exam: Present: regular rate and rhythm. Midsternal chest dressing dry and intact. Absent: gallop, JVD, murmur GI/Abdominal exam: Present: soft. Absent: distended, firm, hernia, mass, tenderness. Extremities exam: Present: No Clubbing, No Cyanosis, Upper Extr. Pulses 2+, Lower Extr. Pulses 2+, No edema. Bilateral lower extremity incisions well approximated s redness, edema, or significant bleeding. Mild drainage at base of incisions, small dressings dry and intact. Capillary refill less than 3 seconds. Musculoskeletal: Present: No Fluid Collection, No Pain, Normal Range of Motion Neurological exam: Present: awake, alert, oriented X3, Moves all extremities well without hemiparesis or paralysis. Grossly intact without resting or essential tremor Psychiatric exam: Present: normal affect, normal mood Skin exam: Present: normal color, warm, dry, intact. Absent: cyanosis, diaphoretic, rash, urticaria Result/EKG - Labs CBC & BMP: 05/01/17 03:06 05/01/17 03:06 Lab Results: I have reviewed the past 24 hour labs Labs: Laboratory Results - last 24 hr 04/30/17 04/30/17 04/30/17 14:54 15:15 19:01 WBC RBC Hgb Hct MCV MCH MCHC RDW Plt Count MPV Neut % (Auto) Lymph % (Auto) [place] % (Auto) Eos % (Auto) Baso % (Auto) Neut # (Auto) Lymph # (Auto) [place] # (Auto) Eos # (Auto) Baso # (Auto) Immature Gran % Nucleated RBC % Immature Gran # Nucleated RBCs # Immature Plt Fraction Sodium Potassium 3.8 Chloride Carbon Dioxide Anion Gap BUN Creatinine GFR Calculation BUN/Creatinine Ratio Glucose POC Glucose 293 H 273 H Calculated Osmolality Calcium Magnesium 05/01/17 05/01/17 05/01/17 01:00 03:06 03:06 WBC 8.6 RBC 2.68 L Hgb 8.2 L Hct 23.6 L MCV 88.1 MCH 31 MCHC 34.7 RDW 12.7 Plt Count 156 MPV 11.1 Neut % (Auto) 73.8 Lymph % (Auto) 13.9 L [place] % (Auto) 9.3 Eos % (Auto) 2.1 Baso % (Auto) 0.3 Neut # (Auto) 6.4 Lymph # (Auto) 1.2 L [place] # (Auto) 0.8 Eos # (Auto) 0.2 Baso # (Auto) 0.0 Immature Gran % 0.6 Nucleated RBC % 0.0 Immature Gran # 0.05 Nucleated RBCs # 0.00 Immature Plt Fraction 0.0 Sodium 139 Potassium 3.7 Chloride 105 Carbon Dioxide 30 Anion Gap 7.7 BUN 14 Creatinine 0.70 GFR Calculation 145 BUN/Creatinine Ratio 20.00 Glucose 271 H POC Glucose 336 H Calculated Osmolality 287.5 Calcium 7.8 L Magnesium 1.8 05/01/17 05/01/17 05/01/17 03:06 07:55 11:54 WBC RBC Hgb Hct MCV MCH MCHC RDW Plt Count MPV Neut % (Auto) Lymph % (Auto) [place] % (Auto) Eos % (Auto) Baso % (Auto) Neut # (Auto) Lymph # (Auto) [place] # (Auto) Eos # (Auto) Baso # (Auto) Immature Gran % Nucleated RBC % Immature Gran # Nucleated RBCs # Immature Plt Fraction Sodium Potassium Chloride Carbon Dioxide Anion Gap BUN Creatinine GFR Calculation BUN/Creatinine Ratio Glucose POC Glucose 291 H 190 H 277 H Calculated Osmolality Calcium Magnesium - EKG EKG results: interpreted by me, sinus rhythm Quality Measures - VTE Contraindication to Pharmacological VTE Prophylaxis: High Risk of Bleeding Specialty Discharge - Follow Up or Referrals
[2017-05-01] MEDS: PANTOPRAZOLE 40 MG TABLET PO SCH (17:07)
[2017-05-01] MEDS: ATORVASTATIN 40 MG TABLET PO SCH (20:52)
[2017-05-02] MEDS: KETOROLAC 30 MG/1 ML VIAL IV SCH ×3 (01:20→12:50)
[2017-05-02] MEDS: ALBUTEROL/IPRATROPIUM 3 ML NEB RESP TX SCH ×2 (03:27→07:56)
[2017-05-02 04:53] LABS: Basophils % 0.3 % (0.0-0.8); Eosinophils # 0.3 10*3/uL (0.0-0.87); Hemoglobin 8.7 GM/DL (14.0-18.0); Immature Granulocytes % 0.9 %; Immature Granulocytes Absolute 0.06 #; Lymphocytes # 1.4 10*3/uL (1.4-4.0); Lymphocytes % 22.1 % (21.2-54.2); Mean Corpuscular HGB Conc 34.8 GM/DL (32-36); Mean Corpuscular Hemoglobin 30 PG (27-34); Mean Corpuscular Volume 85.6 FL (87-102); Mean Platelet Volume 10.7 FL (9.6-12.0); Monocytes # 0.6 10*3/uL (0.11-0.8); Monocytes % 8.5 % (1.7-12.7); Neutrophils # 4.2 10*3/uL (1.4-7.4); Neutrophils % 64.2 % (38.7-73.9); Platelet Count 189 T/CUMM (130-400); Red Blood Count 2.92 MC/CUMM (3.8-5.5); Red Cell Distribution Width 12.4 % (9.3-17.3); White Blood Count 6.5 T/CUMM (4-12)
[2017-05-02 05:23] LABS: Calcium 8.4 MG/DL (8.5-10.1); Magnesium 1.5 MG/DL (1.8-2.4); Osmolality,Calculated 289.1 MOS/KG (273-304); Potassium 3.5 MMOL/L (3.5-5.1)
[2017-05-02] MEDS: OXcarbazepine 300 MG TABLET PO SCH (08:49)
[2017-05-02] MEDS: FUROSEMIDE 40 MG TABLET PO SCH (08:49)
[2017-05-02] MEDS: CLOPIDOGREL 75 MG TABLET PO SCH (08:49)
[2017-05-02] MEDS: METOPROLOL TARTRATE 25 MG TABLET PO SCH (08:49)
[2017-05-02] MEDS: COLCHICINE 0.6 MG TABLET PO SCH (08:50)
[2017-05-02] MEDS: ASPIRIN EC 325 MG TABLET PO SCH (08:50)
[2017-05-02] MEDS: IBUPROFEN 800 MG TABLET PO SCH (08:50)
[2017-05-02] MEDS: PANTOPRAZOLE 40 MG TABLET PO SCH (08:50)
[2017-05-02] MEDS: INSULIN REGULAR 100 UNIT/ML SUBCUT SCH ×2 (08:51→12:34)
[2017-05-02] MEDS: MAGNESIUM SULF RIDER 4 GM in PREMIX 1 EACH IV PRN (08:52)
[2017-05-02] MEDS: CHLORHEXIDINE 0.12% ORAL RINSE 60 ML BOTTLE SWISH/SPIT SCH (08:55)
[2017-05-02 09:52] LABS: Basophils % 0.3 % (0.0-0.8); Eosinophils # 0.3 10*3/uL (0.0-0.87); Eosinophils % 4.3 % (0.00-10.9); Hematocrit 26.5 VOL% (42.0-52.0); Hemoglobin 9.4 GM/DL (14.0-18.0); Immature Granulocytes % 1.6 %; Immature Granulocytes Absolute 0.11 #; Lymphocytes # 0.9 10*3/uL (1.4-4.0); Lymphocytes % 13.4 % (21.2-54.2); Mean Corpuscular HGB Conc 35.5 GM/DL (32-36); Mean Corpuscular Hemoglobin 31 PG (27-34); Mean Corpuscular Volume 86.3 FL (87-102); Mean Platelet Volume 10.3 FL (9.6-12.0); Monocytes # 0.6 10*3/uL (0.11-0.8); Monocytes % 8.8 % (1.7-12.7); Neutrophils # 4.9 10*3/uL (1.4-7.4); Neutrophils % 71.6 % (38.7-73.9); Platelet Count 200 T/CUMM (130-400); Red Blood Count 3.07 MC/CUMM (3.8-5.5); Red Cell Distribution Width 12.4 % (9.3-17.3); White Blood Count 6.8 T/CUMM (4-12)
[2017-05-02 10:16] LABS: Calcium 8.2 MG/DL (8.5-10.1); Magnesium 1.5 MG/DL (1.8-2.4); Osmolality,Calculated 292.4 MOS/KG (273-304); Potassium 3.9 MMOL/L (3.5-5.1)
[2017-05-02 11:22] LABS: Hypochromasia 2+; Polychromasia Slight
--- NOTE | 2017-05-02 12:07 | Discharge Summary ---
Hospital Course - Hospital Course Hospital Course: 51-year-old male who was found to have extensive multivessel coronary artery disease when he had a left heart cath. The patient was symptomatic with angina at rest. He was admitted from the [facility] for close observation and on the coagulation to the time of surgery. I took him to surgery April 28 for CABG 4. The patient tolerated the procedure well without any problems. He was extubated within 4 hours after surgery. His pain was well-controlled. His hemodynamics were stable. He was found to have mild pericarditis and he was started on colchicine and nonsteroidal anti-inflammatory drug. he was transferred to telemetry postoperative day 1. He was breathing well. He was active. Postoperative day 2 I removed the chest tubes and the pacing wires. Postoperative day 3 and 4 the patient continued to do very well without any complaints. Postoperative day 4 he was ready for discharge. Diagnosis - Discharge Diagnosis (1) NSTEMI (non-ST elevated myocardial infarction) Status: Acute Specialty Discharge - Follow Up or Referrals Discharge Plan - Discharge Data Disposition: Home Health Service Condition at Discharge: Stable Discharge Diet: advance to your usual diet Activity: resume usual activities as tolerated Weight Bearing at Discharge: full weight bearing Driving: not until seen by doctor Contact your physician if you experience:: fever over 101, Difficulty voiding, Nausea/Vomiting, Shortness of breath, Bleeding, pain uncontrolled by pain medications - Discharge Medications New RX: Aspirin EC Tab 325 mg PO DAILY #60 tablet RX: Atorvastatin [Lipitor] 40 mg PO BEDTIME tablet RX: Clopidogrel [Plavix] 75 mg PO DAILY #60 tablet RX: Colchicine [Colcrys] 0.6 mg PO BID #14 tablet RX: Furosemide Tab [Lasix Tab] 40 mg PO DAILY #60 tablet RX: Metoprolol Tartrate Tab [Lopressor Tab] 25 mg PO BID tablet RX: OXcarbazepine [Trileptal] 900 mg PO BID tablet RX: Pantoprazole Tab [Protonix Tab] 40 mg PO DAILY tablet RX: Acetaminophen Tab [Tylenol Tab] 650 mg PO Q4H PRN tablet PRN Reason: Fever, Headache, Mild Pain RX: Albuterol/Ipratropium Neb [Duoneb] 3 ml RESP TX RT Q4H #60 RX: Ibuprofen Tab [Motrin Tab] 800 mg PO BID #30 tablet Continue RX: Baldwin-3S/Dha/Epa/Fish Oil [Fish Oil 1,200 mg Softgel] 1 each PO QAM RX: clonazePAM TAB [KlonoPIN] 0.5 mg PO BEDTIME RX: Multivit-Mins/Iron/Folic/Lycop [Centrum Men's Tablet] 1 each PO QAM RX: Losartan Potassium 50 mg PO QAM RX: Metformin HCl [Metformin HCl ER] 2,000 mg PO BEDTIME RX: Ubidecarenone [Co Q-10] 200 mg PO QAM RX: OXcarbazepine [Oxcarbazepine] 900 mg PO BID Discontinued RX: Aspirin EC Tab 81 mg PO QAM - Follow Up or Referral - Forms/Instructions Instructions: Coronary Artery Disease (GEN), Coronary Artery Bypass Graft (DC) , Left Heart Catheterization (DC), Heart Healthy Diet (GEN), Sternal Precautions (GEN) Exam - Constitutional Vitals: Period Temp Pulse Resp BP Sys/Moreno Pulse Ox Last 24 Hr 96.9 F-97.8 F 65-80 16-20 125-149/69-81 91-98 Discharge Results Procedures and tests throughout hospitalization: Pending Orders 04/27/17 04:04 Fresh Frozen Plasma IN AM Red Blood Cells Leuko Red IN AM Single Donor Platelets IN AM Type and Screen Routine 05/03/17 04:00 BMP w/ Mg [Basic Metabolic Panel w/Mg] IN AM Comp Blood Count Auto Diff IN AM 05/04/17 04:00 BMP w/ Mg [Basic Metabolic Panel w/Mg] IN AM Comp Blood Count Auto Diff IN AM Labs on day of discharge: Labs from last 24 hours 05/02/17 05/02/17 05/02/17 09:40 09:40 04:05 WBC 6.8 RBC 3.07 L Hgb 9.4 L Hct 26.5 L MCV 86.3 L MCH 31 MCHC 35.5 RDW 12.4 Plt Count 200 MPV 10.3 Neut % (Auto) 71.6 Lymph % (Auto) 13.4 L Burnett % (Auto) 8.8 Eos % (Auto) 4.3 Baso % (Auto) 0.3 Neut # (Auto) 4.9 Lymph # (Auto) 0.9 L Burnett # (Auto) 0.6 Eos # (Auto) 0.3 Baso # (Auto) 0.0 Immature Gran % 1.6 Nucleated RBC % 0.0 Immature Gran # 0.11 Nucleated RBCs # 0.00 Immature Plt Fraction 0.0 Polychromasia Slight Hypochromasia 2+ Sodium 140 142 Potassium 3.9 3.5 Chloride 104 105 Carbon Dioxide 30 29 Anion Gap 9.9 11.5 BUN 17 17 Creatinine 0.90 0.70 GFR Calculation 130 145 BUN/Creatinine Ratio 18.00 24.00 H Glucose 320 H 195 H POC Glucose Calculated Osmolality 292.4 289.1 Calcium 8.2 L 8.4 L Magnesium 1.5 L 1.5 L 05/02/17 05/01/17 05/01/17 04:05 20:09 15:17 WBC 6.5 RBC 2.92 L Hgb 8.7 L Hct 25.0 L MCV 85.6 L MCH 30 MCHC 34.8 RDW 12.4 Plt Count 189 D MPV 10.7 Neut % (Auto) 64.2 Lymph % (Auto) 22.1 Burnett % (Auto) 8.5 Eos % (Auto) 4.0 Baso % (Auto) 0.3 Neut # (Auto) 4.2 Lymph # (Auto) 1.4 Burnett # (Auto) 0.6 Eos # (Auto) 0.3 Baso # (Auto) 0.0 Immature Gran % 0.9 Nucleated RBC % 0.0 Immature Gran # 0.06 Nucleated RBCs # 0.00 Immature Plt Fraction 0.0 Polychromasia Hypochromasia Sodium Potassium Chloride Carbon Dioxide Anion Gap BUN Creatinine GFR Calculation BUN/Creatinine Ratio Glucose POC Glucose 293 H 330 H Calculated Osmolality Calcium Magnesium DS: Provider Date of admission: 04/22/17 17:47 Primary care physician: Jeannine Lindsey Attending physician on admission: Ronnie Meredith MD Consults: 04/28/17 12:13 Consult to Occupational Therapy [CONS] Routine Reason for Occupational Therapy: Evaluate and Treat Start Therapy: Tomorrow Consult to Physical Therapy [CONS] Routine Reason for Physical Therapy: Evaluate and Treat Start Therapy: Tomorrow 04/28/17 13:33 Consult to Sleep Center [CONS] Routine Reason for Sleep Center: Sleep Center Physician 04/28/17 16:42 Consult to Physician [CONS] Routine Comment: Consulting Provider: Althea Mueller 04/30/17 07:23 Consult to Occupational Therapy [CONS] Routine Reason for Occupational Therapy: Evaluate and Treat Start Therapy: Today Consult to Physical Therapy [CONS] Routine Reason for Physical Therapy: Evaluate and Treat Start Therapy: Today 05/02/17 11:49 Consult to Case Mgmt/Social Srvs [CONS] Routine Reason for Case Mgmt/Social Srvs: Home Health Consult Comment: post cabg Discharging clinician: Althea Mueller Expected date of discharge: 05/02/17
[2017-05-02 12:10] VITALS: BP 143/80
--- NOTE | 2017-05-02 12:11 | Cardiology Progress Note ---
Assessment and Plan (1) NSTEMI (non-ST elevated myocardial infarction) Status: Acute Assessment and plan: 51-year-old male, admitted with unstable angina, LHC confirmed 3 VD, mildly elevated EDP. 04/28: CABG. -Pericarditic chest pain. Resolved with colchicine and ibuprofen. -Continue aspirin, clopidogrel, statin. -Increased metoprolol to 25 mg twice daily. -Switch famotidine to PPI. He is on DAPT and high dose anti-inflammatory therapy. -Discharge home, per CTS today. Follow-up with Dr. Meredith in 4 weeks Current Visit: Yes Cardiology - PN: Subj Interval history: He is feeling fine, ambulating without issues. Exam (Progress Note) - Constitutional Vitals: Period Temp Pulse Resp BP Sys/Moreno Pulse Ox Last 24 Hr 96.9 F-97.8 F 64-80 16-20 125-149/69-81 91-98 General appearance: normal weight, over weight - Head Head exam: Present: normal inspection, normocephalic - Eye Eye exam: Absent: conjunctival injection, scleral icterus Pupils: Absent: dilated - ENT ENT exam: Absent: normal external ear exam - Neck Neck exam: Present: normal inspection - Respiratory Respiratory exam: Present: decreased breath sounds. Absent: prolonged expiratory phase - Cardiovascular Cardiovascular exam: Present: regular rate and rhythm. Absent: JVD, systolic murmur - GI/Abdominal GI/Abdominal exam: Present: normal bowel sounds. Absent: distended - Extremities Exam Extremities exam: Present: normal inspection, normal capillary refill, other ( Surgical incision is dry, and) - Neurological Exam Neurological exam: Present: alert, oriented X3 - Psychiatric Psychiatric exam: Present: normal affect, normal mood - Skin Skin exam: Present: normal color, warm. Absent: cyanosis Result/EKG - Labs CBC & BMP: 05/02/17 09:40 05/02/17 09:40 Lab Results: I have reviewed the past 24 hour labs Labs: Laboratory Results - last 24 hr 05/01/17 05/01/17 05/02/17 15:17 20:09 04:05 WBC 6.5 RBC 2.92 L Hgb 8.7 L Hct 25.0 L MCV 85.6 L MCH 30 MCHC 34.8 RDW 12.4 Plt Count 189 D MPV 10.7 Neut % (Auto) 64.2 Lymph % (Auto) 22.1 [place]ett % (Auto) 8.5 Eos % (Auto) 4.0 Baso % (Auto) 0.3 Neut # (Auto) 4.2 Lymph # (Auto) 1.4 [place] # (Auto) 0.6 Eos # (Auto) 0.3 Baso # (Auto) 0.0 Immature Gran % 0.9 Nucleated RBC % 0.0 Immature Gran # 0.06 Nucleated RBCs # 0.00 Immature Plt Fraction 0.0 Polychromasia Hypochromasia Sodium Potassium Chloride Carbon Dioxide Anion Gap BUN Creatinine GFR Calculation BUN/Creatinine Ratio Glucose POC Glucose 330 H 293 H Calculated Osmolality Calcium Magnesium 05/02/17 05/02/17 05/02/17 04:05 09:40 09:40 WBC 6.8 RBC 3.07 L Hgb 9.4 L Hct 26.5 L MCV 86.3 L MCH 31 MCHC 35.5 RDW 12.4 Plt Count 200 MPV 10.3 Neut % (Auto) 71.6 Lymph % (Auto) 13.4 L [place] % (Auto) 8.8 Eos % (Auto) 4.3 Baso % (Auto) 0.3 Neut # (Auto) 4.9 Lymph # (Auto) 0.9 L [place] # (Auto) 0.6 Eos # (Auto) 0.3 Baso # (Auto) 0.0 Immature Gran % 1.6 Nucleated RBC % 0.0 Immature Gran # 0.11 Nucleated RBCs # 0.00 Immature Plt Fraction 0.0 Polychromasia Slight Hypochromasia 2+ Sodium 142 140 Potassium 3.5 3.9 Chloride 105 104 Carbon Dioxide 29 30 Anion Gap 11.5 9.9 BUN 17 17 Creatinine 0.70 0.90 GFR Calculation 145 130 BUN/Creatinine Ratio 24.00 H 18.00 Glucose 195 H 320 H POC Glucose Calculated Osmolality 289.1 292.4 Calcium 8.4 L 8.2 L Magnesium 1.5 L 1.5 L - EKG EKG results: interpreted by me Quality Measures - VTE Contraindication to Pharmacological VTE Prophylaxis: High Risk of Bleeding Specialty Discharge - Follow Up or Referrals - Speciality Discharge Instructions Cardiology Instructions: FU with dr. Meredith in 4 weeks
== END 2017-05-02 15:29 | disposition home health service (06) | DRG 234 ==
LOC: N.ED 15:59 → N.EDINP 17:47 → N.TELEN 18:16 → N.CVR 04-28 09:46 → N.TELES 04-29 18:10
PROVIDERS: ADMIT Internal Medicine Cardiovascular Disease; ATTEND Internal Medicine Cardiovascular Disease
PROC: CLCCHCL (ICD-10-PCS; 2017-04-24 13:15)